=== PATIENT | male | born 1980 | race Caucasian/White ===

== ENCOUNTER 2018-10-02 09:57 | Inpatient (IN) ==
[2018-10-02] MEDS ORDERED: Gadobutrol PF 15 MMOL/15 ML Vial (for RAD) IV.SIG ONE (09:58)
--- NOTE | 2018-10-02 11:09 | ED ---
HPI General Chief complaint: Back Pain/Injury Stated complaint: Back pain / transfer from [facility] Time Seen by Provider: 10/02/18 10:03 Source: patient Mode of arrival: EMS History of Present Illness HPI narrative: This is a 38-year-old patient that was experiencing bilateral lower leg paresthesias, weakness, urinary retention and apparently constipation was seen and discharged on October 01. When the patient returns today patient was reevaluated and this time was been evaluated for a variety of conditions including [employer] tumor herniated disc productive radiculopathy cauda equina epidural abscess spinal abscess despite the fact that the patient does not have any major risk factors for these. For [facility] then transfer patient to [facility] due to their MRI being to unable to accommodate his weight. Related Data Home Medications Medication Instructions Recorded Confirmed Dilantin 300 mg PO TID 06/04/18 10/02/18 Allergies Allergy/AdvReac Type Severity Reaction Status Date / Time ibuprofen Allergy Anaphylaxis Verified 10/02/18 10:22 Iodine and Iodide Containing Allergy Anaphylaxis Verified 10/02/18 10:22 Produc ketorolac Allergy Anaphylaxis Verified 10/02/18 10:22 naproxen Allergy Anaphylaxis Verified 10/02/18 10:22 Penicillins Allergy Anaphylaxis Verified 10/02/18 10:22 Sulfa (Sulfonamide Allergy Anaphylaxis Verified 10/02/18 10:22 Antibiotics) [facility] Social History Social History Substance History: No History of Abuse Second Hand Smoke Exposure: No Smoking Status: Never smoker Tobacco Type: Cigarettes How Often Do You Have a Drink Containing Alcohol: Never Recent Travel in [facility] within the Last 8 Weeks: No Recent Out of Country Travel within the Last 8 Weeks: No Immunization History Tetanus Immunization: >5 Years Tetanus Immunization Year if Known: 2017 Exam Narrative Exam Narrative: GENERAL: Well-nourished, well-developed patient in no apparent distress. SKIN: Warm and dry. HEAD: Atraumatic. Normocephalic. EYES: Pupils equal and round. No scleral icterus. No injection or drainage. ENT: No nasal bleeding or discharge. Mucous membranes pink and moist. NECK: Trachea midline. No JVD. CARDIOVASCULAR: Regular rate and rhythm. no rubs or gallops RESPIRATORY: No accessory muscle use. Clear to auscultation. Breath sounds equal bilaterally. GASTROINTESTINAL: Abdomen soft, non-tender, nondistended. No rebound or guarding MUSCULOSKELETAL: Extremities without clubbing, cyanosis, or edema. No obvious deformities. NEUROLOGICAL: Awake and alert. No obvious cranial nerve deficits. PATIENT APPEARS TO HAVE DECREASED MOTOR ACTIVITY FROM T10 LEVEL AND BELOW (SUSPICIOUS FOR CAUDA EQUINA) WEAKER LEFT LEG, DECREASED SENSORY IN SADDLE DISTRIBUTION... Normal speech. PSYCHIATRIC: Appropriate mood and affect; insight and judgment normal. Course Initial Documented Vital Signs Temperature 98.9 F 10/02/18 10:11 Pulse Rate 87 10/02/18 10:11 Respiratory Rate 22 10/02/18 10:11 Blood Pressure 136/72 10/02/18 10:11 Pulse Oximetry 96 10/02/18 10:11 Last Documented Vital Signs Temperature 98.9 F 10/02/18 10:11 Pulse Rate 105 H 10/02/18 16:06 Respiratory Rate 12 10/02/18 16:06 Blood Pressure 121/73 10/02/18 16:06 Pulse Oximetry 99 10/02/18 16:06 Critical Care Time Critical Care Time: Yes Total Critical Care Time: 45 Attestation: Aggregate critical care time was 45 minutes. Time to perform other separately billable procedures was not included in the critical care time. My time did not include minutes spent treating any other patients simultaneously or on activities that did not directly contribute to the patient's treatment. The services I provided to this patient were to treat and/or prevent clinically significant deterioration I provided critical care services requiring my management, as noted below: Chart data review, documentation time, medication orders and management, vital sign assessments/reviewing monitor data, ordering and reviewing lab tests, ordering and interpreting/reviewing x-rays and diagnostic studies, care of the patient and discussion of the patient with the admitting physicians. Medical Decision Making MDM Narrative Medical decision making narrative: Patient's complete metabolic profile potassium 3.5, chloride 101, CO2 23, glucose 132, BUN 16, creatinine 0.79, calcium 9.2, albumin 4.0, total protein 8.8, alk phos 174, AST 46, ALT 50, and bili total 0.3 Urinalysis showed 1+ protein positive nitrite no bacteria moderate mucus these were all the abnormal findings of the urinalysis. UA WBC is 9, RBC 38. WBC 11.1, hemoglobin 12.1, hematocrit 37.7, neutrophils 75%, lymphocytes 13%, platelet 241,000. According to review with the patient was given Rocephin and vancomycin because of 1 blood culture bottle being positive for gram-positive cocci, in lieu of the patient's possible possible neurological symptoms 3 separate times he attempted to take the patient over to MRI, but each time the patient refused to get his MRI performed. The patient received fentanyl receive Versed doses and still the patient refused. On the last attempt he went with fentanyl and Versed drip, the patient still refused stating that it was too painful and he could not lay flat. Patient was advised that we did not want to miss a catastrophic cord compression injury and that he would require intubation if necessary as the most aggressive form. Patient then stated that he would agree to intubation and he signed his consent prior to being intubated. Please see forms that were signed by patient he was provided all risks and benefits. Dr. Manuel neurosurgeon came to the bedside to see the patient and advised as well as obtain consents for possible surgeries needed. At 1655 Dr. Manuel called me to make me aware that on his wet read he sees what appears to be epidural hematomas versus abscess either way the patient will need thoracic laminectomies to release pressure. CT abdomen and pelvis without IV contrast was read by radiologist GARCIA: Impression left renal calcification similar to the prior exam and may reflect nephrolithiasis versus vascular calcification. No obstructive uropathy. No evidence for bowel obstruction this was a October 01 CAT scan which was compared to in September 27 CAT scan abdomen without pelvis Right lower extremity venous duplex ultrasound performed negative for DVT according to radiologist Dr. Cedillo Chest x-ray read by Dr. Birch the third impression no evidence of acute cardiopulmonary process Right knee x-ray read by Dr. Paris the third impression read as small joint effusion suggested appearing similar to the prior persistent but improved soft tissue swelling noted about the knee anteriorly and laterally. Well-positioned uncemented total knee arthroplasty with interval lucency about the medial and lateral aspect of the femoral component consistent with osteoporosis Medical Screen Exam Complete: Yes Emergency Medical Condition: Yes Medical Records Medical records reviewed: Yes I reviewed the patient's medical records. Per evaluation the patient was evaluated in the emergency department, primary care Dr. chino . Patient had a Marie placed for urinary retention previously on October 01 and apparently the patient return for lower back pain for 2 days and now bilateral leg pain and numbness His baseline status is ambulatory (patient weighs 300 pounds) who apparently had a space right total knee surgery on August 30, 2018. The pain is midline over thoracolumbar spine. Patient states allergy to Ultracet fentanyl NSAIDs tramadol contrast dye and penicillin as well as Toradol. Imaging Data Radiologist's impression: Lumbar Spine MRI 10/02/18 10:28 CONCLUSION: 1. No fracture, subluxation, abscess or mass of the lumbar spine. 2. Mild degenerative disc disease with a small right paracentral disc protrusion at L1/L2. No associated significant foraminal or spinal stenosis. 3. Mild bilateral facet osteoarthritis throughout. Thoracic Spine MRI 10/02/18 10:28 CONCLUSION: 1. Complex collection in the posterior epidural space extending from T6 to T11 with its epicenter at the T9 level. There is epidural enhancement with small nonenhancing components. The signal changes with lack of fat suppression are indicative of subacute hemorrhage. The nonenhancing components located at the T9 level are suspicious for small abscess formation. 2. Right-sided bone marrow edema with abnormal enhancement involving the T9 and T10 vertebral bodies suspicious for vertebral body involvement and osteomyelitis. 3. Moderates compromise of the spinal canal with compression of the spinal cord. 4. Multiloculated fluid collections with surrounding enhancement are identified in the right paraspinal region at the T9 level characteristic of small paraspinal hematoma and/or abscess. 5. Extensive lower lobe consolidating lung disease. 6. Report conveyed to emergency physician. Discharge Plan Discharge Disposition Patient Disposition: 30 Still Patient Discharge Condition Condition: Fair Discharge Details Diagnosis: Epidural abscess Physicians Team ED Provider: Duncan Long Primary Care Provider: UNKNOWN, Attending Provider: Elliot Gonzalez Other Providers: Cipriano Manuel Status ED Status: Admitted Patient
[2018-10-02] MEDS ORDERED: fentaNYL Citrate Inj 100 MCG/2 ML Ampul IV.PUSH ONE (12:29)
[2018-10-02] MEDS ORDERED: Midazolam 50 MG/50 ML Inj 50 MG/50 ML BAG IV.CONT PRN (12:29)
--- NOTE | 2018-10-02 14:27 | P.CONNS ---
History of Present Illness Service: Neurosurgery Consult date: 10/02/18 Reason for Consult: Cauda equina syndrome Primary Care Provider: UNKNOWN Chief Complaint: Back pain, leg plegia History of Present Illness: 38yo M who has had progressive back and leg pain x 5 days, now with ~24hrs of paraplegia and ~3d of urinary retention. This began as back and leg pain 5d ago , progressing rapidly. He became unable to urinate 3d ago and was seen at the ER. A huizar was placed and he was released home. He continued to worsen, and since last night, he has been unable to move his legs. He says he can feel pressure, but that he is also numb in his legs from roughly the navel down. He has not had fecal incontinence. He has never had a similar episode. He had a knee replacement roughly 1 month ago, but denies fevers, chills, or other infection symptoms. He denies any history of illicit drug use. He has epilepsy and diabetes, and is on Dilantin. Review of Systems 10-system review conducted and otherwise negative. [facility] - History History Provided By: Patient - Medical History Medical History: Medical History (Last Reviewed 10/02/18 @ 10:17 by Elidia Whitfield) Diabetes Epilepsy - Surgical History Surgical History: Surgical History (Last Reviewed 10/02/18 @ 10:17 by Elidia Whitfield) Hx of abdominal surgery Hx of right knee surgery - Tobacco History Second Hand Smoke Exposure: No Smoking Status: Never smoker Tobacco Type: Cigarettes - Alcohol History How Often Do You Have a Drink Containing Alcohol: Never - Substance Use History Substance History: No History of Abuse - Travel History Recent Travel in the [place] Within the Last 8 Weeks: No Recent Travel Out of the Country Within the Last 8 Weeks: No - Immunization History Tetanus Immunization: >5 Years Tetanus Immunization Year if Known: 2016 Medications and Allergies Active Medications: Active Medications Midazolam HCl (Versed Inj) 50 mg in 50 mls @ 2 mls/hr IV.CONT TITRATE PRN; Protocol PRN Reason: Per Protocol Allergies Allergy/AdvReac Type Severity Reaction Status Date / Time ibuprofen Allergy Anaphylaxis Verified 10/02/18 10:22 Iodine and Iodide Containing Allergy Anaphylaxis Verified 10/02/18 10:22 Produc ketorolac Allergy Anaphylaxis Verified 10/02/18 10:22 naproxen Allergy Anaphylaxis Verified 11/04/18 10:22 Penicillins Allergy Anaphylaxis Verified 10/02/18 10:22 Sulfa (Sulfonamide Allergy Anaphylaxis Verified 10/02/18 10:22 Antibiotics) Home Medications Medication Instructions Recorded Confirmed Type Dilantin 300 mg PO TID 06/04/18 10/02/18 History Exam Vital signs: Vital Signs 10/02/18 10:11 10/02/18 12:07 10/02/18 14:08 Temperature 98.9 F Pulse Rate 87 96 H 92 H Respiratory Rate 18 Blood Pressure 136/72 140/82 138/69 Pulse Oximetry 96 96 95 Intake & Output 10/01/18 10/02/18 10/02/18 19:59 06:59 18:59 Output Total 1000 / 1000 Balance -1000 / -1000 Weight 136.078 kg Output: Urine Amount (Catheter) 1000 / 1000 Indwelling Urethral Catheter 1000 / 1000 - Routine Neurological Exam Alert and conversant. Answers questions appropriately. Keeps jaw tense from back pain throughout interview. Sensation to light touch decreased from navel down to toes. Has no voluntary motor movement in any muscle group of the legs bilaterally. Huizar catheter in place. Normal strength bilateral upper extremities. Assessment and Plan - Plan 38 M with symptoms concerning for lower spinal cord or cauda equina compression. He has a sensory level around T10 and no motor function from L1 down. Differential could include disc herniation, osteomyelitis/discitis or epidural abscess, degenerative stenosis, etc. Other mimics could include spinal cord infarct or neuropathy given his diabetes, but back pain and progressive sxs over several days make that less likely. Recommend STAT MRI T&L spines with and without contrast to assess for compressive pathology. If seen, would merit emergent decompressive surgery. Discussed this with patient at bedside and he is in agreement. Gave ER team my # and they will let me know as soon as MRI is complete.
[2018-10-02] MEDS ORDERED: Succinylcholine Inj 200 MG/10 ML Vial IV.PUSH ONE (14:51)
[2018-10-02] MEDS ORDERED: Etomidate Inj 20 MG/10 ML Ampul IV.PUSH ONE (14:51)
[2018-10-02] MEDS ORDERED: Propofol 1000 mg/100 ml Inj 1,000 MG/100 ML BOTTLE ONE (15:09)
[2018-10-02] MEDS: Propofol 1000 mg/100 ml Inj 1,000 MG/100 ML BOTTLE IV.CONT PRN ×2 (15:24→21:31)
[2018-10-02] MEDS ORDERED: Gelatin Size 100 Topical Foam ONE ×2 (16:53→17:58)
[2018-10-02] MEDS ORDERED: Thrombin Topical Soln 5,000 UNIT Vial TOPICAL ONE (16:53)
--- NOTE | 2018-10-02 17:19 | MR ---
EXAM DATE: 10/02/2018 4:51 PM EST AGE/SEX: 38 years / Male INDICATIONS: . Weakness/paresthesia/urinary retention, Mass CLINICAL DATA: This is the patient's initial encounter. Patient reports that signs and symptoms have been present for 3 days and indicates a pain score of 10/10. MEDICAL/SURGICAL HISTORY: Carcinoma, testicular. . Orchiectomy, Right knee replacement COMPARISON: No prior exams available for comparison. TECHNIQUE: Multiplanar, multisequence MRI examination of the lumbar spine was performed without and with 13 ml Gadavist (gadobutrol) contrast as a single exam dose. FINDINGS: Lumbar spine alignment is normal. Lumbar vertebral bodies have normal height. Subcentimeter hemangiom a seen of L5. No concerning focal bone lesion. Normal conus terminus at the level of L1. The L1/L2 disc is slightly desiccated and has slight loss of height. There is a small right paracentr al disc protrusion. No associated significant foraminal or spinal stenosis. Other lumbar intervertebral discs are normal. Mild facet osteoarthritis seen at each level. There is no abnormal enhancement of the lumbar spine. CONCLUSION: 1. No fracture, subluxation, abscess or mass of the lumbar spine. 2. Mild degenerative disc disease with a small right paracentral disc protrusion at L1/L2. No associ ated significant foraminal or spinal stenosis. 3. Mild bilateral facet osteoarthritis throughout. Electronically signed by: Hieu Chaves MD 10/02/2018 5:18 PM EST
--- NOTE | 2018-10-02 17:26 | MR ---
EXAM DATE: 10/02/2018 4:45 PM EST AGE/SEX: 38 years / Male INDICATIONS: . weakness/paresthesia/urinary retention, Mass, CLINICAL DATA: This is the patient's initial encounter. Patient reports that signs and symptoms have been present for 3 days and indicates a pain score of 10/10. MEDICAL/SURGICAL HISTORY: Carcinoma, testicular. . Orchiectomy, Right knee replacement COMPARISON: No prior exams available for comparison. TECHNIQUE: Multiplanar, multisequence MRI of the thoracic spine was performed without and with 13 ml Gadavist (gadobutrol) contrast as a single exam dose. FINDINGS: T1 and T2 hyperintense complex fluid collection is identified along the posterior epidural space exte nding from the T6-T11 thoracic levels. There is no significant suppression of the fluid on fat-suppre ssed sequences. The collection measures approximately 8.3 mm in thickness and causes significant effa cement of the posterior aspect of the spinal cord. The collection also extends along the right latera l and anterolateral epidural margin at the T9 level. Following administration of contrast there is ep idural enhancement outlining small nonenhancing fluid collections within the epidural process which a re located at the T9 level. At the same level there are small loculated fluid collections in the righ t paraspinal region located between the T9 and T10 levels. Bone marrow edema and abnormal enhancement are identified along the right side of the T9 and T10 vert ebral bodies. There is significant arthropathy of the T9-10 facet joint as well. There is no intrinsic edema or enhancement within the spinal cord. A small right paracentral disc protrusion is identified at T11-12. There is no significant mass effec t. Extensive consolidating infiltrate is identified in both lower lobes. CONCLUSION: 1. Complex collection in the posterior epidural space extending from T6 to T11 with its epicenter at the T9 level. There is epidural enhancement with small nonenhancing components. The signal changes w ith lack of fat suppression are indicative of subacute hemorrhage. The nonenhancing components locate d at the T9 level are suspicious for small abscess formation. 2. Right-sided bone marrow edema with abnormal enhancement involving the T9 and T10 vertebral bodies suspicious for vertebral body involvement and osteomyelitis. 3. Moderates compromise of the spinal canal with compression of the spinal cord. 4. Multiloculated fluid collections with surrounding enhancement are identified in the right paraspi nal region at the T9 level characteristic of small paraspinal hematoma and/or abscess. 5. Extensive lower lobe consolidating lung disease. 6. Report conveyed to emergency physician. Electronically signed by: Santosh Corado MD 10/02/2018 5:25 PM EST
[2018-10-02] MEDS ORDERED: Bupivacaine/Epinephrine Inj 0.25% 50 ML Vial ONE (17:38)
[2018-10-02] MEDS ORDERED: Acetaminophen 325 MG Tablet PO PRN (18:24)
[2018-10-02] MEDS ORDERED: Bisacodyl 10 MG Supp RECTAL PRN (18:24)
[2018-10-02] MEDS ORDERED: HYDROmorphone PF Inj 2 MG/ML Vial ONE (18:55)
[2018-10-02] MEDS ORDERED: Ketamine Inj 50 MG/5 ML Syringe IV.PUSH ONE (18:56)
[2018-10-02] MEDS ORDERED: Chlorhexidine 0.12% Oral Kit 15 ML UDC OROPHARYNG SCH (20:00)
[2018-10-02] MEDS ORDERED: fentaNYL Citrate Inj 100 MCG/2 ML Ampul ONE (21:19)
--- NOTE | 2018-10-02 21:21 | P.OP ---
- Preoperative Diagnosis (1) Epidural abscess - Postoperative Diagnosis (1) Epidural abscess Date of procedure: 10/02/18 Procedure: T5-T11 laminectomies for decompression of spinal cord and evacuation of abscess Anesthesia: GETA Surgeon: Cipriano Manuel MD Estimated blood loss (mL): 400 Pathology: other (Epidural tissue for pathology and microbiology, along with culture swabs x 2) Operation and Findings: Preoperative diagnosis: Thoracic epidural abscess versus hematoma Postoperative diagnosis: Thoracic epidural abscess Procedure performed: T5-T11 laminectomies for decompression of spinal cord and evacuation of epidural abscess Anesthesia: General endotracheal Estimated blood loss: 400 mL Drains: 10 flat channel drain in the epidural space Complications: None evident Indications for surgery: This is a 38-year-old man who presented with 5 days of progressive back and leg pain, which progressed to 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 He had a knee replacement 1 month ago, but denied having any fevers, chills, etc. However, apparently he had a positive blood culture several days ago when he went to the ER for urinary retention, and did receive a dose of vancomycin at some point. He was transferred to [facility] for emergent MRI, as he would not fit in the MRI scanner at the outside facility. We tried for more than 4 hours to obtain an MRI scan, but he could not tolerate lying flat due to severe back pain, and ultimately he required intubation for the MRI. I had a high suspicion that we would find a compressive spinal cord lesion, and prior to his intubation, I had a discussion with him about that likelihood. I did not know exactly what the MRI would show, but the patient gave his verbal consent to urgently operate without extubating him if an emergent surgical lesion was identified. I sat in the MRI control room throughout the entire scan, and it did indeed identify a large epidural fluid collection in the lower thoracic region with severe spinal cord compression. I felt that emergent decompression was indicated for spinal cord decompression and to obtain a firm diagnosis. No family members were available at that time to provide informed consent, and he was taken to the operating room emergently based on his verbal assent and multi- physician agreement. Operative findings: Phlegmonous changes of the epidural fat from T5-T11, with liquid pus in the region of T9-T11. Good decompression of the spinal cord was achieved. There were no durotomies. Multiple specimens were sent for microbiology and one for pathology. Operation: Patient was identified in the preoperative holding area and brought intubated into OR #4. General endotracheal anesthesia was induced. Because of his recent knee replacement, we requested the orthopedic service come to the operating room to examine his knee to ensure that there was no evidence of a septic arthroplasty or need for joint aspiration. They inspected the knee carefully and felt that it was reassuring, and did not require aspiration. The patient was cautiously rotated into the prone position on a Romulo table. Great care was taken to pad all pressure points given his obese body habitus. The fluoroscopy C arm was brought over the patient; his habitus prevented lateral radiographs, but by counting ribs we identified the T8/9 disc space and used this as the center of our incision. The entire back was now cleaned, prepped, and draped in the usual sterile fashion. Preoperative antibiotics were held to facilitate intraoperative cultures. Local anesthetic was injected. The incision was now opened sharply with a 10 blade and carried deep using Bovie electrocautery. Using careful subperiosteal dissection, we exposed the posterior elements from T5-T11. We took care not to disrupt the interspinous ligaments at T4-5 or T11-12. Fluoroscopy shots were taken again to confirm levels. Beginning at T8 and T9, we performed decompressive laminectomies with the high-speed drill and rongeurs. We identified phlegmonous changes of the epidural fat, which was unusually firm and adherent to the dura, but no evidence of ronaldo abscess. The laminectomies were extended in both directions, one level at a time, to continue decompressing the spinal cord. When we decompressed the T9/10 and T10/11 areas, we found liquid pus around the dura and tracking laterally around the thecal sac in the epidural space. Multiple specimens were taken, both by swab and by sending tissue specimens. At this point, we gave the patient vancomycin, ceftriaxone, and Flagyl. He had a known penicillin allergy, but we agreed that ceftriaxone would be safe, and he did not have any untoward reaction. We continued decompressing spinal cord and ultimately performed complete laminectomies of T6-T10, with partial laminectomies of T5 and T11. At both rostral and caudal ends, we identified normal epidural fat and normal dura. A [place] could be easily passed into the epidural space above and below, confirming adequate decompression of the thecal sac. The majority of the phlegmon could be gently dissected off of the dura, and the decompression appeared excellent. No durotomies occurred. The epidural space was now thoroughly irrigated with saline. Hemostasis was achieved with combination of thrombin-soaked Gelfoam and bone wax. Hemostasis ultimately appeared excellent. A 10 flat channel DAVY drain was tunneled in through a separate inferolateral stab incision and cut to length. This was left in the epidural space and secured with a 2-0 nylon drain stitch. Attention was now turned to closure. The muscle and fascia were closed with interrupted 0 Vicryl sutures. The thick layer of subcutaneous fat was closed with 0 Vicryls as well. The dermis was closed with interrupted inverted 3-0 Vicryl pops. Miranda were used for skin closure. The drapes were taken down, and bacitracin ointment and Primapore dressings were placed. We had decided beforehand to keep the patient intubated for transport to the ICU, so he was carefully rotated back into the supine position on an ICU bed and transported out of the operating room. All counts were correct at the end of the case, and no complications were evident. I made multiple attempts to contact his family by phone following surgery, to update them on his status, but was unsuccessful in reaching them. After finalizing this dictation I will go to the ICU and attempt to find him in person. We will plan to continue broad-spectrum antibiotics until his cultures come back. He will need ID consultation, and likely PICC line. He will also need PT/OT and likely inpatient rehab for his spinal cord injury. Attending Surgeon attestation: I performed the entire procedure.
[2018-10-02] MEDS: Sod Chloride 0.9% Inj 1,000 ML IV.CONT SCH (21:31)
[2018-10-02] MEDS: fentaNYL 10 mcg/mL Premix Drip 2,500 MCG/250 ML BAG IV.SIG PRN (21:31)
[2018-10-02] MEDS: Famotidine PF Inj 20 MG/2 ML Vial IV.PUSH SCH (21:45)
--- NOTE | 2018-10-02 21:54 | P.CONCC ---
History of Present Illness Service: Critical Care Medicine Consult date: 10/02/18 Requesting Physician: Cipriano Manuel Reason for Consult: critical care management of patient postop epidural abscess Primary Care Provider: UNKNOWN Chief Complaint: Back pain, leg plegia History of Present Illness: Unable to obtain history from patient as he is intubated. History obtained from discussion with Dr. Manuel and review of EMR. 38-year-old male with PMH of seizure disorder, diabetes, obesity and total knee replacement 08/30/18. He presented with reported 5 day history of back and leg pain. He had urinary retention about 3 days ago and presented to ED at [facility] and Marie catheter was placed and he was discharged. The evening of 10/01 he developed paraplegia and presented again to [facility]. MRI could not be performed there due to patients weight/ body habitus. He was transferred to [facility] for MRI. He was not able to cooperate with MRI after multiple attempts and ultimately required intubation for MRI. MRI revealed T6-T11 epidural abscess with compression of the spinal cord. He underwent T5 to T11 laminectomy and epidural abscess evacuation 10/[address] Manuel. Intraoperative cultures were obtained. He had received rocephin and Vancomycin 10/02 at outside hospital at 8:30 am. He has been continued on Rocephin, vancomycin and Flagyl per neurosurgery. Orthopaedics evaluated his knee in OR and said it appeared to be normal post-op knee, no need to do arthrocentesis. Dr. Manuel states preoperatively he had flaccid paraplegia and sensory level for T10, could feel some pressure sensation. He denied fever, chills, history of IV drug use. Plan for him to remain intubated for postop MRI in the morning and extubate following. There was concern regarding traumatic intubation due to blood suctioned from ETT postintubation, however he currently has a cuff leak. Reportedly prelim report on blood culture at outside hospital was [facility], requesting fax these results. Reviewed EMR but unable to confirm PMH/PSH/FH/social history with patient due to intubation Review of Systems unobtainable due to endotracheal tube PMFSH - History History Provided By: Medical Record - Medical / Surgical Hx Neg / Unobtainable Medical Problems Denied: Unable to Obtain Surgical History: Unable to Obtain - Medical History Medical History: Medical History (Last Reviewed 10/02/18 @ 10:17 by Elidia Whitfield) Diabetes Epilepsy - Surgical History Surgical History: Surgical History (Last Reviewed 10/02/18 @ 10:17 by Elidia Whitfield) Hx of abdominal surgery Hx of right knee surgery - Social History I have reviewed the patient's Social History: Yes - Tobacco History Second Hand Smoke Exposure: No Smoking Status: Never smoker Tobacco Type: Cigarettes - Alcohol History How Often Do You Have a Drink Containing Alcohol: Never - Substance Use History Substance History: No History of Abuse - Travel History Recent Travel in the [place] Within the Last 8 Weeks: No Recent Travel Out of the Country Within the Last 8 Weeks: No - Immunization History Tetanus Immunization: >5 Years Tetanus Immunization Year if Known: 2016 Medications and Allergies Active Medications: Active Medications Acetaminophen (Tylenol) 650 mg PO Q6H PRN PRN Reason: PAIN 1-10 AND/OR FEVER >101F Al Hydroxide/Mg Hydroxide (Milk Of Magnesia Liq) 30 ml PO Q12H PRN PRN Reason: Mild Constipation Albuterol (Duoneb Neb (Prn)) 1 ampul NEB Q2HR NEB PRN PRN Reason: WHEEZING Bisacodyl (Dulcolax Supp) 10 mg RECTAL DAILY PRN PRN Reason: SEVERE CONSITIPATION Chlorhexidine Gluconate (Peridex 0.12% Oral Kit) 15 ml OROPHARYNG BID@0800, 2000 [facility] Last Admin: 10/02/18 21:46 Dose: 15 ml Chlorhexidine Gluconate (Chlorhexidine 2% Cloth) 3 pack TOPICAL DAILY@0400 [facility] Stop: 10/08/18 03:59 Chlorhexidine Gluconate (Chlorhexidine 2% Cloth) 3 pack TOPICAL DAILY@0400 PRN PRN Reason: Extra cloth needed Stop: 10/08/18 03:59 Famotidine (Pepcid Pf Inj) 20 mg IV.PUSH Q12HR [facility] Last Admin: 10/02/18 21:45 Dose: 20 mg Midazolam HCl (Versed Inj) 50 mg in 50 mls @ 2 mls/hr IV.CONT TITRATE PRN; Protocol PRN Reason: Per Protocol Last Admin: 10/02/18 14:20 Dose: 2 mg/hr, 2 mls/hr Propofol (Diprivan 1000 Mg/100 Ml Inj) 1,000 mg in 100 mls @ 4.082 mls/hr IV.CONT TITRATE PRN; Protocol PRN Reason: Per Protocol Last Admin: 10/02/18 21:31 Dose: 20 mcg/kg/min, 16.33 mls/hr Fentanyl (Fentanyl 10 Mcg/Ml Premix Drip) 2,500 mcg in 250 mls @ 5 mls/hr IV.SIG TITRATE PRN; Protocol PRN Reason: Per Protocol Last Admin: 10/02/18 21:31 Dose: 50 mcg/hr, 5 mls/hr Sodium Chloride (Ns Inj) 1,000 mls @ 100 mls/hr IV.CONT .Q10H ONI Last Admin: 10/02/18 21:31 Dose: 100 mls/hr Lactulose (Lactulose Liq) 30 ml PO DAILY PRN PRN Reason: SEVERE CONSITIPATION Miscellaneous Medication () 1 each OROPHARYNG 0000,0400,1200,1600 ONI Morphine Sulfate (Morphine Inj) 2 mg IV.PUSH Q2H PRN PRN Reason: PAIN SCALE 6 TO 10 Ondansetron HCl (Zofran Inj) 4 mg IV.PUSH Q6H PRN PRN Reason: NAUSEA OR VOMITING Senna/Docusate Sodium (Jinny-Colace) 1 tab PO BID ONI Sennosides (Senokot) 17.2 mg PO Q12H PRN PRN Reason: Moderate Constipation Sodium Chloride (Ns Flush) 2 ml IV.FLUSH BID ONI Sodium Chloride (Ns Flush) 2 ml IV.FLUSH PRN PRN PRN Reason: FLUSH AFTER USING IV ACCESS Allergies Allergy/AdvReac Type Severity Reaction Status Date / Time ibuprofen Allergy Anaphylaxis Verified 10/02/18 10:22 Iodine and Iodide Containing Allergy Anaphylaxis Verified 10/02/18 10:22 Produc ketorolac Allergy Anaphylaxis Verified 10/02/18 10:22 naproxen Allergy Anaphylaxis Verified 10/02/18 10:22 Penicillins Allergy Anaphylaxis Verified 10/02/18 10:22 Sulfa (Sulfonamide Allergy Anaphylaxis Verified 10/02/18 10:22 Antibiotics) Home Medications Medication Instructions Recorded Confirmed Type Dilantin 300 mg PO TID 06/04/18 10/02/18 History Physical Exam Vital signs: Vital Signs 10/02/18 10:11 10/02/18 12:07 10/02/18 14:08 Temperature 98.9 F Pulse Rate 87 96 H 92 H Respiratory Rate 22 22 18 Blood Pressure 136/72 140/82 138/69 Pulse Oximetry 96 96 95 10/02/18 15:19 10/02/18 15:27 10/02/18 15:30 Temperature Pulse Rate 108 H Respiratory Rate 18 23 Blood Pressure 138/78 Pulse Oximetry 94 L 100 100 10/02/18 16:06 10/02/18 18:13 10/02/18 21:28 Temperature Pulse Rate 105 H Respiratory Rate 12 12 17 Blood Pressure 121/73 Pulse Oximetry 99 99 Intake & Output 10/02/18 10/02/18 10/03/18 06:59 18:59 06:59 Intake Total 300 / 300 Output Total 1900 / 1900 Balance -1900 / -1900 300 / 300 Weight 136.078 kg Intake: IV 300 / 300 Diprivan 1000 mg/100 ml Inj 1, 100 / 100 000 mg In 100 ml @ 5 MCG/KG/MIN 4.082 mls/hr IV.CONT TITRATE PRN Rx#:[id number] Rocephin Inj 1,000 MG In NS Inj 100 / 100 100 ML @ 200 mls/hr IV.SIG ONCE ONE Rx#:[id number] Flagyl 500 MG Inj 100 ML @ 0 100 / 100 mls/hr IV.SIG .STK-MED ONE Rx#: [id number] Output: Urine Amount (Catheter) 1899 Indwelling Urethral Catheter 1899 Narrative: GENERAL: Well-nourished, well-developed obese patient who is orotracheally intubated. He has been on sedation but will awaken and follow commands with upper extremities when propofol is held. SKIN: Warm and dry. HEAD: Atraumatic. Normocephalic. EYES: Pupils equal and round, 2 mm and reactive bilaterally. No scleral icterus. No injection or drainage. ENT: No nasal bleeding or discharge. Mucous membranes pink and moist. NECK: Trachea midline. No JVD. CARDIOVASCULAR: Regular rate and rhythm. No murmurs rubs or gallops. RESPIRATORY: Orotracheally intubated. No accessory muscle use. Clear to auscultation. Breath sounds equal bilaterally. GASTROINTESTINAL: Abdomen soft, non-tender, nondistended. Bowel sounds present. MUSCULOSKELETAL: Extremities without clubbing, cyanosis. Healing incision overlying right knee, no erythema or drainage. NEUROLOGICAL: Opens eyes off sedation, makes eye contact. Squeezes hands bilaterally with firm brown sourer to command. No motor activity bilateral lower extremities. No response to Babinski. - Urinary Catheter Management Indwelling Urethral Catheter Cath placed during this visit: no Assessment and Plan - Problem List (1) Obesity Code(s): E66.9 - Obesity, unspecified Status: Acute (2) Respiratory failure Code(s): J96.90 - Respiratory failure, unspecified, unspecified whether with hypoxia or hypercapnia Status: Acute (3) Flaccid paralysis Code(s): G83.89 - Other specified paralytic syndromes Status: Acute (4) Seizure disorder Code(s): G40.909 - Epilepsy, unspecified, not intractable, without status epilepticus Status: Chronic (5) Diabetes mellitus Code(s): E11.9 - Type 2 diabetes mellitus without complications Status: Chronic - Assessment and Plan Plan: NEURO: Epidural abscess s/p T5-T11 laminectomy and abscess evacuation 10/[address] Manuel Flaccid paraplegia Seizure disorder Propofol for sedation. Fentanyl for analgosedation. Target RASS -2. F/u MRI in morning before extubation. DAVY drain in place, monitoring output, management per neurosurgery. Dr. Kelly to follow from NSG standpoint. Continue Dilantin 300 mg per tube 3 times daily. RESP: Acute respiratory failure +cuff leak ACV. Ventilator Bundle. SBT and plan to extubate as tolerated following MRI. CV: 0.9 NaCL @ 100ml/hr. Avoid hypotension. GI: Obesity OGT to LIWS Bowel regimen FEN/RENAL: Urinary retention Marie in place. Monitor intake and output. Monitor electrolytes and replace as indicated per ICU electrolyte replacement protocol ID: Epidural abscess Obtain blood culture results from outside hospital. Since blood cultures now. Dr. Manuel states intraoperative port cultures were obtained. He requests continuation of Rocephin, vancomycin, Flagyl. ID consult. Pt has reported history of anaphylaxis to penicillin. Has had 2 doses of Rocephin at this point with no untoward effect. Reportedly no history of IVDU. HEME: Obtain postop CBC, coags. ENDO: Diabetes mellitus Monitor bedside glucose every 6 hours and administer low-dose insulin sliding scale as indicated. PROPH: SCD for DVT prophylaxis. Avoid pharmacologic DVT prophylaxis due to immediate postop epidural evacuation. Famotidine for stress ulcer prophylaxis. ACCESS: L subclavian CVL placed in OR 10/02. Right radial art line in place 10/02 #1 Full code Level 3 consult
--- NOTE | 2018-10-02 22:07 | XR ---
EXAM DATE: 10/02/2018 9:55 PM EST AGE/SEX: 38 years / Male INDICATIONS: Left subclavian line placement. CLINICAL DATA: This is the patient's subsequent encounter. Patient reports that signs and symptoms h ave been present for 1 day and indicates a pain score of Nonresponsive. MEDICAL/SURGICAL HISTORY: . Hernia. . Hernia mesh. None. COMPARISON: [facility], CHEST PA & LAT, 10/19/2017. . FINDINGS: Patient is status post thoracic spine surgery. Very mild bibasilar atelectasis noted. No pleural effu ratna. No pneumothorax. Heart size stable, within normal limits. Endotracheal tube tip is approximately 3.8 cm above the dione. There is a left subclavian central ve nous catheter with tip at the junction of the left brachiocephalic vein with the superior vena cava. CONCLUSION: 1. Interim thoracic spine surgery. 2. Endotracheal tube and left subclavian central venous catheter as described. No pneumothorax. 3. Mild bibasilar atelectasis. Electronically signed by: Hieu Chaves MD 10/02/2018 10:06 PM EST
[2018-10-02] MEDS ORDERED: Vancomycin Consult Pharmacy OTHER PRN (22:44)
[2018-10-02] MEDS ORDERED: Dextrose 50% in Water 50 ML Vial IV.PUSH PRN (23:03)
[2018-10-02] MEDS ORDERED: Potassium Phosphate 500 MG Soluble Tablet PO PRN ×2 (23:05)
[2018-10-02] MEDS ORDERED: Potassium Chlor 40 mEq Premix 40 MEQ/100 ML PIGGYBACK IV.SIG PRN ×2 (23:05)
[2018-10-02] MEDS ORDERED: Sodium Phosphate Inj 30 MMOL in Sodium Chlor 0.9% Inj 250 ML IV.SIG PRN (23:05)
[2018-10-02] MEDS ORDERED: Potassium Phosphate Inj 30 MMOL in Sodium Chlor 0.9% Inj 250 ML IV.SIG PRN (23:05)
[2018-10-02] MEDS ORDERED: Magnesium Oxide 400 MG Tablet PO PRN (23:05)
[2018-10-02] MEDS ORDERED: Potassium Chloride 25 MEQ Effervescent Tablet PO PRN (23:05)
[2018-10-02] MEDS ORDERED: Potassium Chlor 20 mEq Premix 20 MEQ/100 ML PIGGYBACK IV.SIG PRN ×2 (23:05)
[2018-10-02] MEDS ORDERED: Magnesium Sulfate Inj 2 GM in Sodium Chlor 0.9% Inj 96 ML IV.SIG PRN (23:05)
[2018-10-02] MEDS ORDERED: Magnesium Sulfate Inj 4 GM in Sodium Chlor 0.9% Inj 92 ML IV.SIG PRN (23:05)
[2018-10-02] MEDS: Phenytoin Sodium 100 MG Capsule NG/OG SCH (23:23)
[2018-10-02] MEDS: Senna/Docusate Sodium 8.6/50 MG Tablet PO SCH (23:24)
[2018-10-02] MEDS: Insulin NovoLOG Aspart Correctional Sugar Inj SQ SCH (23:46)
[2018-10-02] MEDS: Oral Hygiene Kit OROPHARYNG SCH (23:47)
[2018-10-03] MEDS ORDERED: Oral Hygiene Kit OROPHARYNG SCH
[2018-10-03 00:15] LABS: Hematocrit 29.6 % (39.0-51.0); Mean Corpuscular HGB Conc 33.6 % (32.0-36.0); Mean Corpuscular Hemoglobin 30.3 pg (27.0-34.0); Mean Corpuscular Volume 90.2 fL (80.0-100.0); Platelet Count 206 th/mm3 (150-450); Red Blood Count 3.29 mil/mm3 (4.50-5.90); Red Cell Distribution Width 15.3 % (11.6-17.2); White Blood Count 12.4 th/mm3 (4.0-11.0)
[2018-10-03] MEDS: Propofol 1000 mg/100 ml Inj 1,000 MG/100 ML BOTTLE IV.CONT PRN ×4 (00:18→13:07)
[2018-10-03 00:30] LABS: Alanine Aminotransferase 35 U/L (12-78); Albumin 2.3 g/dL (3.4-5.0); Anion Gap 6 meq/L (5-15); Aspartate Aminotransferase 17 U/L (15-37); Blood Urea Nitrogen 11 mg/dL (7-18); Calcium 8.1 mg/dL (8.5-10.1); Carbon Dioxide 24.7 meq/L (21.0-32.0); Chloride 111 meq/L (98-107); Glomerular Filtration Rate Greater Than 89 mL/min (>89); Glucose,Random 162 mg/dL (74-106); Potassium 3.7 meq/L (3.5-5.1); Sodium 142 meq/L (136-145)
[2018-10-03 00:33] LABS: Alkaline Phosphatase 122 U/L (45-117); Total Protein 7.1 g/dL (6.4-8.2)
[2018-10-03 00:41] LABS: Activated Partial Thrombo Time 29.3 sec (23.4-31.7); INR 1.2 Ratio; Prothrombin Time 12.2 sec (9.8-11.6)
[2018-10-03 00:48] LABS: Amphetamine Screen,Urine Neg (Neg); Barbiturate Screen,Urine Neg (Neg); Cannabinoid Screen,Urine Neg (Neg); Cocaine Screen,Urine Neg (Neg)
[2018-10-03 01:00] LABS: Opiate Screen,Urine Pos (Neg)
[2018-10-03] MEDS ORDERED: Chlorhexidine Gluconate 2% 1 Pack (2 Cloths) TOPICAL PRN (04:00)
[2018-10-03] MEDS: Oral Hygiene Kit OROPHARYNG SCH ×3 (04:20→17:35)
[2018-10-03] MEDS ORDERED: Vancomycin Inj 2,000 MG in Sodium Chlor 0.9% Inj 500 ML IV.SIG SCH (05:00)
[2018-10-03] MEDS: Chlorhexidine Gluconate 2% 1 Pack (2 Cloths) TOPICAL SCH (05:53)
[2018-10-03] MEDS: Insulin NovoLOG Aspart Correctional Sugar Inj SQ SCH ×3 (06:29→19:16)
[2018-10-03] MEDS: Phenytoin Sodium 100 MG Capsule NG/OG SCH ×3 (06:29→22:30)
[2018-10-03 07:15] LABS: Hemoglobin 9.7 gm/dL (13.0-17.0); Lymph # (Auto) 0.8 th/mm3 (1.0-4.8); Lymph % (Auto) 7.2 % (9.0-44.0); Mean Corpuscular HGB Conc 32.2 % (32.0-36.0); Mean Corpuscular Hemoglobin 29.9 pg (27.0-34.0); Mean Corpuscular Volume 92.9 fL (80.0-100.0); Mean Platelet Volume 9.3 fL (7.0-11.0); Mono # (Auto) 0.6 th/mm3 (0.0-0.9); Neut # (Auto) 10.2 th/mm3 (1.8-7.7); Neut % (Auto) 87.8 % (16.0-70.0); Platelet Count 220 th/mm3 (150-450); Red Blood Count 3.23 mil/mm3 (4.50-5.90); Red Cell Distribution Width 14.9 % (11.6-17.2); White Blood Count 11.6 th/mm3 (4.0-11.0)
[2018-10-03 07:20] LABS: INR 1.2 Ratio; Prothrombin Time 12.3 sec (9.8-11.6)
[2018-10-03 07:41] LABS: Albumin 2.4 g/dL (3.4-5.0); Anion Gap 8 meq/L (5-15); Aspartate Aminotransferase 15 U/L (15-37); Blood Urea Nitrogen 12 mg/dL (7-18); Calcium 8.2 mg/dL (8.5-10.1); Carbon Dioxide 23.7 meq/L (21.0-32.0); Chloride 111 meq/L (98-107); Glomerular Filtration Rate Greater Than 89 mL/min (>89); Glucose,Random 145 mg/dL (74-106); Magnesium 1.9 mg/dL (1.5-2.5); Potassium 3.8 meq/L (3.5-5.1); Sodium 143 meq/L (136-145)
[2018-10-03 07:43] LABS: Alanine Aminotransferase 32 U/L (12-78); Phosphorus 2.2 mg/dL (2.5-4.9)
[2018-10-03 07:45] LABS: Alkaline Phosphatase 116 U/L (45-117); Phenytoin (Dilantin) 1.1 mcg/mL (10.0-20.0); Total Protein 7.2 g/dL (6.4-8.2)
[2018-10-03] MEDS: Senna/Docusate Sodium 8.6/50 MG Tablet PO SCH ×2 (08:35→21:05)
[2018-10-03] MEDS: Famotidine PF Inj 20 MG/2 ML Vial IV.PUSH SCH ×2 (08:35→21:05)
[2018-10-03] MEDS: Morphine Sulfate Inj 2 MG/ML Vial IV.PUSH PRN ×5 (08:35→21:06)
[2018-10-03] MEDS: Chlorhexidine 0.12% Oral Kit 15 ML UDC OROPHARYNG SCH ×2 (08:58→21:06)
[2018-10-03] MEDS: fentaNYL 10 mcg/mL Premix Drip 2,500 MCG/250 ML BAG IV.SIG PRN (10:27)
[2018-10-03] MEDS ORDERED: Gadobutrol PF 15 MMOL/15 ML Vial (for RAD) IV.SIG ONE (12:23)
--- NOTE | 2018-10-03 13:07 | P.PNCC ---
Subjective Subjective Remarks/Hospital Course: 38-year-old male with PMH of seizure disorder, diabetes, obesity and total knee replacement 08/30/18. He presented with reported 5 day history of back and leg pain. He had urinary retention about 3 days ago and presented to ED at [facility] and Marie catheter was placed and he was discharged. The evening of 10/01 he developed paraplegia and presented again to [facility]. MRI could not be performed there due to patients weight/ body habitus. He was transferred to [facility] for MRI. He was not able to cooperate with MRI after multiple attempts and ultimately required intubation for MRI. MRI revealed T6-T11 epidural abscess with compression of the spinal cord. He underwent T5 to T11 laminectomy and epidural abscess evacuation 10/[address] Manuel. Intraoperative cultures were obtained. He had received rocephin and Vancomycin 10/02 at outside hospital at 8:30 am. He has been continued on Rocephin, vancomycin and Flagyl per neurosurgery. Orthopaedics evaluated his knee in OR and said it appeared to be normal post-op knee, no need to do arthrocentesis. Dr. Manuel states preoperatively he had flaccid paraplegia and sensory level for T10, could feel some pressure sensation. He denied fever, chills, history of IV drug use. Plan for him to remain intubated for postop MRI in the morning and extubate following. There was concern regarding traumatic intubation due to blood suctioned from ETT postintubation, however he currently has a cuff leak. Reportedly prelim report on blood culture at outside hospital was [facility], requesting fax these results. 10/03: Patient remains intubated but wakes up easily follows commands tolerate CPAP. Pre op thoracic MRI showed complex collection in the posterior epidural space extending from T6 to T11 with its epicenter at the T9 level indicative of subacute hemorrhage. The nonenhancing components located at the T9 level are suspicious for small abscess formation. There is also suspicion of T9 and T10 vertebral bodies osteomyelitis. Moderate compromise of the spinal canal with compression of the spinal cord. Also small paraspinal hematoma and/or abscess. Post op MRI pending at this time Objective Vital Signs / I&O: Vital Signs 10/02/18 14:08 10/02/18 15:19 10/02/18 15:27 Temperature Pulse Rate 92 H 108 H Respiratory Rate 18 18 23 Blood Pressure 138/69 138/78 Pulse Oximetry 95 94 L 100 10/02/18 15:30 10/02/18 16:06 10/02/18 18:13 Temperature Pulse Rate 105 H Respiratory Rate 12 12 Blood Pressure 121/73 Pulse Oximetry 100 99 10/02/18 21:09 10/02/18 21:12 10/02/18 21:28 Temperature Pulse Rate 89 Respiratory Rate 17 Blood Pressure 111/55 L Pulse Oximetry 96 95 99 10/02/18 22:00 10/02/18 22:25 10/02/18 23:00 Temperature 98.8 F Pulse Rate 84 81 73 Respiratory Rate 20 15 14 Blood Pressure 120/63 113/59 L Pulse Oximetry 100 100 100 10/02/18 23:36 10/03/18 00:00 10/03/18 01:00 Temperature 99.2 F Pulse Rate 72 70 Respiratory Rate 18 18 16 Blood Pressure 116/59 L 114/55 L Pulse Oximetry 100 100 100 10/03/18 02:00 10/03/18 03:00 10/03/18 04:00 Temperature 99.5 F Pulse Rate 68 71 75 Respiratory Rate 16 14 16 Blood Pressure 112/59 L 117/64 122/67 Pulse Oximetry 100 100 100 10/03/18 04:23 10/03/18 05:00 10/03/18 06:00 Temperature Pulse Rate 69 74 Respiratory Rate 14 12 14 Blood Pressure 113/57 L Pulse Oximetry 100 100 100 10/03/18 08:00 10/03/18 09:10 10/03/18 12:49 Temperature 99.2 F Pulse Rate 70 Respiratory Rate 14 12 Blood Pressure Pulse Oximetry 100 97 100 10/03/18 12:50 Temperature Pulse Rate Respiratory Rate 13 Blood Pressure Pulse Oximetry 98 Intake & Output 10/02/18 10/03/18 10/03/18 18:59 06:59 18:59 Intake Total 1999 / 1999 350 / 350 Output Total 1900 / 1900 1500 / 1500 Balance -1900 / -1900 500 / 500 350 / 350 Weight 136.078 kg 143.2 kg Intake: IV 500 / 500 350 / 350 Diprivan 1000 mg/100 ml Inj 1, 300 / 300 100 / 100 000 mg In 100 ml @ 5 MCG/KG/MIN 4.082 mls/hr IV.CONT TITRATE PRN Rx#:[id number] Rocephin Inj 1,000 MG In NS Inj 100 / 100 100 ML @ 200 mls/hr IV.SIG ONCE ONE Rx#:[id number] fentaNYL 10 mcg/mL Premix Drip 250 / 250 2,500 mcg In 250 ml @ 50 MCG/HR 5 mls/hr IV.SIG TITRATE PRN Rx #:[id number] Flagyl 500 MG Inj 100 ML @ 0 100 / 100 mls/hr IV.SIG .STK-MED ONE Rx#: [id number] Anesthesia Amount 1500 / 1500 Output: Estimated Blood Loss 400 / 400 Urine Amount (Catheter) 1900 / 1900 900 / 900 Indwelling Urethral Catheter 1900 / 1900 900 / 900 Gastric Drainage 50 / 50 Oral Orogastric Tube 50 / 50 Wound Drainage 150 / 150 # 1 Posterior DAVY Drain 150 / 150 Other: # Bowel Movements 0 # Incontinent Bowel Movements 0 Weight On Admission 141.5 kg Result Diagrams: 10/03/18 05:51 10/03/18 05:51 Objective Remarks: GENERAL: Well-nourished, well-developed obese patient who is orotracheally intubated. He has been on sedation but will awaken and follow commands with upper extremities when propofol is held. SKIN: Warm and dry. HEAD: Atraumatic. Normocephalic. EYES: Pupils equal and round, 2 mm and reactive bilaterally. No scleral icterus. No injection or drainage. ENT: No nasal bleeding or discharge. Mucous membranes pink and moist. NECK: Trachea midline. No JVD. CARDIOVASCULAR: Regular rate and rhythm. No murmurs rubs or gallops. RESPIRATORY: Orotracheally intubated. No accessory muscle use. Clear to auscultation. Breath sounds equal bilaterally. GASTROINTESTINAL: Abdomen soft, non-tender, nondistended. Bowel sounds present. MUSCULOSKELETAL: Extremities without clubbing, cyanosis. Healing incision overlying right knee, no erythema or drainage. NEUROLOGICAL: Opens eyes off sedation, makes eye contact. Squeezes hands bilaterally with firm verification lead to command. No motor activity bilateral lower extremities. No response to Babinski. Assessment and Plan - Problem List (1) Obesity Code(s): E66.9 - Obesity, unspecified Status: Acute (2) Respiratory failure Code(s): J96.90 - Respiratory failure, unspecified, unspecified whether with hypoxia or hypercapnia Status: Acute (3) Flaccid paralysis Code(s): G83.89 - Other specified paralytic syndromes Status: Acute (4) Seizure disorder Code(s): G40.909 - Epilepsy, unspecified, not intractable, without status epilepticus Status: Chronic (5) Diabetes mellitus Code(s): E11.9 - Type 2 diabetes mellitus without complications Status: Chronic - Assessment and Plan Plan: NEURO: Epidural abscess s/p T5-T11 laminectomy and abscess evacuation 10/[address] Manuel Flaccid paraplegia Seizure disorder Propofol for sedation. Fentanyl for analgosedation. Target RASS -2. F/u MRI in morning before extubation. Results are pending at this time DAVY drain in place, monitoring output, management per neurosurgery. Dr. Kelly to follow from NSG standpoint. Continue Dilantin 300 mg per tube 3 times daily. RESP: Acute respiratory failure +cuff leak. ACV. Ventilator Bundle. SBT and plan to extubate as tolerated following MRI. CV: 0.9 NaCL @ 100ml/hr. Avoid hypotension. GI: Obesity OGT to LIWS Bowel regimen FEN/RENAL: Urinary retention Marie in place. Monitor intake and output. Monitor electrolytes and replace as indicated per ICU electrolyte replacement protocol ID: Epidural abscess Obtain blood culture results from outside hospital. Since blood cultures now. Dr. Manuel states intraoperative port cultures were obtained. He requests continuation of Rocephin, vancomycin, Flagyl. ID consult. Pt has reported history of anaphylaxis to penicillin. Has had 2 doses of Rocephin at this point with no untoward effect. Reportedly no history of IVDU. HEME: Obtain postop CBC, coags. ENDO: Diabetes mellitus Monitor bedside glucose every 6 hours and administer low-dose insulin sliding scale as indicated. PROPH: SCD for DVT prophylaxis. Avoid pharmacologic DVT prophylaxis due to immediate postop epidural evacuation. Famotidine for stress ulcer prophylaxis. ACCESS: L subclavian CVL placed in OR 10/02. Right radial art line in place 10/02 Full code Level 3
--- NOTE | 2018-10-03 13:28 | P.CONID ---
History of Present Illness Service: Infectious Disease Consult date: 10/03/18 Requesting Physician: Tawnya Rodriguez Reason for Consult: Evaluation and Mment of Thoracic epidural abscess Primary Care Provider: UNKNOWN Chief Complaint: Back pain, leg plegia History of Present Illness: Mr. Lawler is a 29-year-old male with past medical history significant for right knee TKR on 08/30/2018. He reportedly did ok and when asked he nodded no to any infection or discharge post surgery. His knee surgical scar did ok per his nodding. He is awake, responding to commands waiting for extubation. Patient presented at [facility] initially with a 5-day history of back and leg pain as well as urinary retention of 3 days duration. Patient was evaluated in the ED and a Marie catheter was placed and he was discharged. Of October 01, 2008 he developed paraplegia and presented again to [facility]. An MRI could not be performed reportedly read/body habitus. He was transferred to [facility] for an MRI. Due to difficulty obtaining an MRI, patient required intubation. The MRI revealed T6- T11 epidural abscess with compression of the spinal cord. He underwent T5 to T11 laminectomy and epidural abscess evacuation 10/[address] Manuel [facility] neurosurgery. Intraoperative cultures were obtained. Patient had received rocephin and Vancomycin IV 10/02 at outside hospital at 8:30 am. He has been continued on Rocephin, vancomycin and Flagyl per neurosurgery. Orthopaedics evaluated his knee in OR and said it appeared to be normal post-op knee, no need to do arthrocentesis. He denied fever, chills, history of IV drug use. Reportedly prelim report on blood culture at outside hospital was [facility],fax of results has been requested by [facility] per their notes. ID consulted for evaluation and Mment of Gram positive bacteremia, Epidural abscess in a patient post surgery for Rt TKR. Review of Systems unobtainable due to endotracheal tube PMFSH - History History Provided By: Medical Record - Medical / Surgical Hx Neg / Unobtainable Medical Problems Denied: Unable to Obtain - Medical History Medical History: Medical History (Last Reviewed 10/02/18 @ 10:17 by Elidia Whitfield) Diabetes Epilepsy - Surgical History Surgical History: Surgical History (Last Reviewed 10/02/18 @ 10:17 by Elidia Whitfield) Hx of abdominal surgery Hx of right knee surgery - Tobacco History Second Hand Smoke Exposure: No Tobacco Use In Past 30 Days: (unknown) Smoking Status: Never smoker Tobacco Type: Cigarettes - Alcohol History How Often Do You Have a Drink Containing Alcohol: Never - Substance Use History Substance History: No History of Abuse - Travel History Recent Travel in the [place] Within the Last 8 Weeks: No Recent Travel Out of the Country Within the Last 8 Weeks: No - Immunization History Tetanus Immunization: >5 Years Tetanus Immunization Year if Known: 2016 Medications and Allergies Active Medications: Active Medications Acetaminophen (Tylenol) 650 mg PO Q6H PRN PRN Reason: PAIN 1-10 AND/OR FEVER >101F Al Hydroxide/Mg Hydroxide (Milk Of Yadiel Liq) 30 ml PO Q12H PRN PRN Reason: Mild Constipation Albuterol (Duoneb Neb (Prn)) 1 ampul NEB Q2HR NEB PRN PRN Reason: WHEEZING Bisacodyl (Dulcolax Supp) 10 mg RECTAL DAILY PRN PRN Reason: SEVERE CONSITIPATION Chlorhexidine Gluconate (Chlorhexidine 2% Cloth) 3 pack TOPICAL DAILY@0400 [facility] Stop: 10/08/18 03:59 Last Admin: 10/03/18 05:53 Dose: 3 pack Chlorhexidine Gluconate (Chlorhexidine 2% Cloth) 3 pack TOPICAL DAILY@0400 PRN PRN Reason: Extra cloth needed Stop: 10/08/18 03:59 Chlorhexidine Gluconate (Peridex 0.12% Oral Kit) 15 ml OROPHARYNG BID@0800, 2000 [facility] Last Admin: 10/03/18 08:58 Dose: 15 ml Dextrose (D50w Vial) 50 ml IV.PUSH UNSCH PRN PRN Reason: PER HYPOGLYCEMIA PROTOCOL Famotidine (Pepcid Pf Inj) 20 mg IV.PUSH Q12HR [facility] Last Admin: 10/03/18 08:35 Dose: 20 mg Glucagon (Glucagon Inj) 1 mg OTHER PRN PRN PRN Reason: for Hypoglycemia Protocol Midazolam HCl (Versed Inj) 50 mg in 50 mls @ 2 mls/hr IV.CONT TITRATE PRN; Protocol PRN Reason: Per Protocol Last Admin: 10/02/18 14:20 Dose: 2 mg/hr, 2 mls/hr Propofol (Diprivan 1000 Mg/100 Ml Inj) 1,000 mg in 100 mls @ 4.082 mls/hr IV.CONT TITRATE PRN; Protocol PRN Reason: Per Protocol Last Admin: 10/03/18 13:07 Dose: 30 mcg/kg/min, 24.49 mls/hr Fentanyl (Fentanyl 10 Mcg/Ml Premix Drip) 2,500 mcg in 250 mls @ 5 mls/hr IV.SIG TITRATE PRN; Protocol PRN Reason: Per Protocol Last Admin: 10/03/18 10:27 Dose: 150 mcg/hr, 15 mls/hr Sodium Chloride (Ns Inj) 1,000 mls @ 100 mls/hr IV.CONT .Q10H [facility] Last Admin: 10/02/18 21:31 Dose: 100 mls/hr Ceftriaxone Sodium 2,000 mg/ (Sodium Chloride) 100 mls @ 200 mls/hr IV.SIG Q12H [facility] Last Admin: 10/03/18 08:35 Dose: 200 mls/hr Magnesium Sulfate 4 gm/ Sodium (Chloride) 100 mls @ 50 mls/hr IV.SIG UNSCH PRN PRN Reason: For Magnesium 0.9 - 1.1 mg/dL Magnesium Sulfate 2 gm/ Sodium (Chloride) 100 mls @ 50 mls/hr IV.SIG UNSCH PRN PRN Reason: For Magnesium 1.2 - 1.6 mg/dL Potassium Chloride (Kcl 40 Meq Premix Inj) 40 meq in 100 mls @ 25 mls/hr IV.SIG Q2H PRN PRN Reason: For Potassium 2.8 - 3.2 mEq/L Potassium Chloride (Kcl 20 Meq Premix Inj) 20 meq in 100 mls @ 50 mls/hr IV.SIG Q2H PRN PRN Reason: For Potassium 3.3 - 3.5 mEq/L Potassium Chloride (Kcl 40 Meq Premix Inj) 40 meq in 100 mls @ 25 mls/hr IV.SIG UNSCH PRN PRN Reason: For Potassium 3.3 - 3.5 mEq/L Potassium Chloride (Kcl 20 Meq Premix Inj) 20 meq in 100 mls @ 50 mls/hr IV.SIG Q2H PRN PRN Reason: For Potassium 2.8 - 3.2 mEq/L Potassium Phosphate 30 mmol/ (Sodium Chloride) 260 mls @ 42 mls/hr IV.SIG UNSCH PRN PRN Reason: SEE LABEL COMMENTS Sodium Phosphate 30 mmol/ (Sodium Chloride) 260 mls @ 42 mls/hr IV.SIG UNSCH PRN PRN Reason: For Phosphorus < 2.5 mg/dL Vancomycin HCl 1,750 mg/ (Sodium Chloride) 517.5 mls @ 258.75 mls/hr IV.SIG Q12H ONI Insulin Aspart (Novolog Insulin Correctional Sugar Inj) 0 unit SQ Q6HR [facility]; Protocol Last Admin: 10/03/18 13:22 Dose: Not Given Lactulose (Lactulose Liq) 30 ml PO DAILY PRN PRN Reason: SEVERE CONSITIPATION Magnesium Oxide (Mag-Ox) 800 mg PO UNSCH PRN PRN Reason: For Magnesium 1.2 - 1.6 mg/dL Miscellaneous Information ([facility] Ordered Lab Info) 0 each OTHER ONCE ONE Stop: 10/04/18 05:46 Miscellaneous Medication () 1 each OROPHARYNG 0000,0400,1200,1600 [facility] Last Admin: 10/03/18 04:20 Dose: 1 each Morphine Sulfate (Morphine Inj) 2 mg IV.PUSH Q2H PRN PRN Reason: PAIN SCALE 6 TO 10 Last Admin: 10/03/18 13:08 Dose: 2 mg Ondansetron HCl (Zofran Inj) 4 mg IV.PUSH Q6H PRN PRN Reason: NAUSEA OR VOMITING Pharmacy Profile Note (Vancomycin Consult Pharmacy) 1 each OTHER UNSCH PRN PRN Reason: Pharmacy to dose Phenytoin Sodium (Dilantin) 300 mg NG/OG Q8H [facility] Last Admin: 10/03/18 06:29 Dose: 300 mg Potassium Bicarb/Potassium Chloride (K-Lyte Cl Eff) 50 meq PO UNSCH PRN PRN Reason: For Potassium 3.3 - 3.5 mEq/L Potassium Phosphate (K-Phos Original) 2,000 mg PO Q4H PRN PRN Reason: Phosphorus Less Than 2.5 mg/dL Last Admin: 10/03/18 08:36 Dose: 2,000 mg Potassium Phosphate (K-Phos Original) 2,000 mg PO UNSCH PRN PRN Reason: SEE LABEL COMMENTS Senna/Docusate Sodium (Jinny-Colace) 1 tab PO BID [facility] Last Admin: 10/03/18 08:35 Dose: 1 tab Sennosides (Senokot) 17.2 mg PO Q12H PRN PRN Reason: Moderate Constipation Sodium Chloride (Ns Flush) 2 ml IV.FLUSH BID ONI Last Admin: 10/03/18 08:58 Dose: 2 ml Sodium Chloride (Ns Flush) 2 ml IV.FLUSH PRN PRN PRN Reason: FLUSH AFTER USING IV ACCESS Allergies Allergy/AdvReac Type Severity Reaction Status Date / Time ibuprofen Allergy Anaphylaxis Verified 10/02/18 10:22 Iodine and Iodide Containing Allergy Anaphylaxis Verified 10/02/18 10:22 Produc ketorolac Allergy Anaphylaxis Verified 10/02/18 10:22 naproxen Allergy Anaphylaxis Verified 10/02/18 10:22 Penicillins Allergy Anaphylaxis Verified 10/02/18 10:22 Sulfa (Sulfonamide Allergy Anaphylaxis Verified 10/02/18 10:22 Antibiotics) Home Medications Medication Instructions Recorded Confirmed Type Dilantin 300 mg PO TID 06/04/18 10/02/18 History Exam Vital signs: Vital Signs 10/02/18 14:08 10/02/18 15:19 10/02/18 15:27 Temperature Pulse Rate 92 H 108 H Respiratory Rate 18 18 23 Blood Pressure 138/69 138/78 Pulse Oximetry 95 94 L 100 10/02/18 15:30 10/02/18 16:06 10/02/18 18:13 Temperature Pulse Rate 105 H Respiratory Rate 12 12 Blood Pressure 121/73 Pulse Oximetry 100 99 10/02/18 21:09 10/02/18 21:12 10/02/18 21:28 Temperature Pulse Rate 89 Respiratory Rate 17 Blood Pressure 111/55 L Pulse Oximetry 96 95 99 10/02/18 22:00 10/02/18 22:25 10/02/18 23:00 Temperature 98.8 F Pulse Rate 84 81 73 Respiratory Rate 20 15 14 Blood Pressure 120/63 113/59 L Pulse Oximetry 100 100 100 10/02/18 23:36 10/03/18 00:00 10/03/18 01:00 Temperature 99.2 F Pulse Rate 72 70 Respiratory Rate 18 18 16 Blood Pressure 116/59 L 114/55 L Pulse Oximetry 100 100 100 10/03/18 02:00 10/03/18 03:00 10/03/18 04:00 Temperature 99.5 F Pulse Rate 68 71 75 Respiratory Rate 16 14 16 Blood Pressure 112/59 L 117/64 122/67 Pulse Oximetry 100 100 100 10/03/18 04:23 10/03/18 05:00 10/03/18 06:00 Temperature Pulse Rate 69 74 Respiratory Rate 14 12 14 Blood Pressure 113/57 L Pulse Oximetry 100 100 100 10/03/18 08:00 10/03/18 09:10 10/03/18 12:49 Temperature 99.2 F Pulse Rate 70 Respiratory Rate 14 12 Blood Pressure Pulse Oximetry 100 97 100 10/03/18 12:50 Temperature Pulse Rate Respiratory Rate 13 Blood Pressure Pulse Oximetry 98 Intake & Output 10/02/18 10/03/18 10/03/18 18:59 06:59 18:59 Intake Total 1999 / 1999 450 / 450 Output Total 1900 / 1900 1500 / 1500 Balance -1900 / -1900 500 / 500 450 / 450 Weight 136.078 kg 143.2 kg Intake: IV 500 / 500 450 / 450 Diprivan 1000 mg/100 ml Inj 1, 300 / 300 200 / 200 000 mg In 100 ml @ 5 MCG/KG/MIN 4.082 mls/hr IV.CONT TITRATE PRN Rx#:[id number] Rocephin Inj 1,000 MG In NS Inj 100 / 100 100 ML @ 200 mls/hr IV.SIG ONCE ONE Rx#:[id number] fentaNYL 10 mcg/mL Premix Drip 250 / 250 2,500 mcg In 250 ml @ 50 MCG/HR 5 mls/hr IV.SIG TITRATE PRN Rx #:[id number] Flagyl 500 MG Inj 100 ML @ 0 100 / 100 mls/hr IV.SIG .STK-MED ONE Rx#: [id number] Anesthesia Amount 1500 / 1500 Output: Estimated Blood Loss 400 / 400 Urine Amount (Catheter) 1900 / 1900 900 / 900 Indwelling Urethral Catheter 1900 / 1900 900 / 900 Gastric Drainage 50 / 50 Oral Orogastric Tube 50 / 50 Wound Drainage 150 / 150 # 1 Posterior DAVY Drain 150 / 150 Other: # Bowel Movements 0 # Incontinent Bowel Movements 0 Weight On Admission 141.5 kg Narrative: GENERAL: Awake, opens eyes on the vent. SKIN: Cool and dry, no generalized rash HEAD: Atraumatic. Normocephalic. No temporal or scalp tenderness. EYES: Pupils equal round and reactive. Scleral icterus. No injection or drainage. No petechia ENT: Orally intubated NECK: Trachea midline. Supple, nontender, no meningeal signs. CARDIOVASCULAR: HS audible. RESPIRATORY: Air entry equal bilaterally. Clear to auscultation bilaterally. GASTROINTESTINAL: Abdomen soft,NT MUSCULOSKELETAL: Extremities without clubbing, cyanosis. Rt Knee TKR site with no e.o infection. Drains visible with sanguinous drainage. NEUROLOGICAL: moves UE, opens eyes follows simple commands, nods yes and no to questions. Psych cooperative IV line sites ok. Results - Labs CBC & Chem 7: 10/03/18 05:51 10/03/18 05:51 Labs: Laboratory Results - last 24 hr 10/02/18 10/02/18 10/02/18 21:32 23:31 23:52 WBC 12.4 H RBC 3.29 L Hgb 10.0 L Hct 29.6 L MCV 90.2 MCH 30.3 MCHC 33.6 RDW 15.3 Plt Count 206 MPV 9.0 Neut % (Auto) Lymph % (Auto) Henderson % (Auto) Eos % (Auto) Baso % (Auto) Neut # (Auto) Lymph # (Auto) Henderson # (Auto) Eos # (Auto) Baso # (Auto) WBC Differential Differential Comment PT INR APTT Sodium Potassium Chloride Carbon Dioxide Anion Gap BUN Creatinine Estimated GFR POC Glucose 187 H Random Glucose Calcium Phosphorus Magnesium Total Bilirubin AST ALT Alkaline Phosphatase Total Protein Albumin Nasal Screen MRSA (PCR) Not detected Urine Opiates Screen Ur Barbiturates Screen Phenytoin Ur Amphetamines Screen U Benzodiazepines Scrn Urine Cocaine Screen U Cannabinoids Screen 10/02/18 10/02/18 10/02/18 23:52 23:52 23:52 WBC RBC Hgb Hct MCV MCH MCHC RDW Plt Count MPV Neut % (Auto) Lymph % (Auto) Henderson % (Auto) Eos % (Auto) Baso % (Auto) Neut # (Auto) Lymph # (Auto) Henderson # (Auto) Eos # (Auto) Baso # (Auto) WBC Differential Differential Comment PT 12.2 H INR 1.2 APTT 29.3 Sodium 142 Potassium 3.7 Chloride 111 H Carbon Dioxide 24.7 Anion Gap 6 BUN 11 Creatinine 0.57 L Estimated GFR Greater than 89 POC Glucose Random Glucose 162 H Calcium 8.1 L Phosphorus Magnesium Total Bilirubin 0.2 AST 17 ALT 35 Alkaline Phosphatase 122 H Total Protein 7.1 Albumin 2.3 L Nasal Screen MRSA (PCR) Urine Opiates Screen Pos H Ur Barbiturates Screen Neg Phenytoin Ur Amphetamines Screen Neg U Benzodiazepines Scrn Pos H Urine Cocaine Screen Neg U Cannabinoids Screen Neg 10/03/18 10/03/18 10/03/18 05:51 05:51 05:51 WBC 11.6 H RBC 3.23 L Hgb 9.7 L Hct 30.0 L MCV 92.9 MCH 29.9 MCHC 32.2 RDW 14.9 Plt Count 220 MPV 9.3 Neut % (Auto) 87.8 H Lymph % (Auto) 7.2 L Henderson % (Auto) 5.0 Eos % (Auto) 0.0 Baso % (Auto) 0.0 Neut # (Auto) 10.2 H Lymph # (Auto) 0.8 L Henderson # (Auto) 0.6 Eos # (Auto) 0.0 Baso # (Auto) 0.0 WBC Differential . Differential Comment Auto diff final PT 12.3 H INR 1.2 APTT Sodium 143 Potassium 3.8 Chloride 111 H Carbon Dioxide 23.7 Anion Gap 8 BUN 12 Creatinine 0.56 L Estimated GFR Greater than 89 POC Glucose Random Glucose 145 H Calcium 8.2 L Phosphorus 2.2 L Magnesium 1.9 Total Bilirubin 0.2 AST 15 ALT 32 Alkaline Phosphatase 116 Total Protein 7.2 Albumin 2.4 L Nasal Screen MRSA (PCR) Urine Opiates Screen Ur Barbiturates Screen Phenytoin 1.1 L Ur Amphetamines Screen U Benzodiazepines Scrn Urine Cocaine Screen U Cannabinoids Screen 10/03/18 06:18 WBC RBC Hgb Hct MCV MCH MCHC RDW Plt Count MPV Neut % (Auto) Lymph % (Auto) Henderson % (Auto) Eos % (Auto) Baso % (Auto) Neut # (Auto) Lymph # (Auto) Henderson # (Auto) Eos # (Auto) Baso # (Auto) WBC Differential Differential Comment PT INR APTT Sodium Potassium Chloride Carbon Dioxide Anion Gap BUN Creatinine Estimated GFR POC Glucose 153 H Random Glucose Calcium Phosphorus Magnesium Total Bilirubin AST ALT Alkaline Phosphatase Total Protein Albumin Nasal Screen MRSA (PCR) Urine Opiates Screen Ur Barbiturates Screen Phenytoin Ur Amphetamines Screen U Benzodiazepines Scrn Urine Cocaine Screen U Cannabinoids Screen - Imaging Impressions Lumbar Spine MRI 10/02/18 10:28 CONCLUSION: 1. No fracture, subluxation, abscess or mass of the lumbar spine. 2. Mild degenerative disc disease with a small right paracentral disc protrusion at L1/L2. No associated significant foraminal or spinal stenosis. 3. Mild bilateral facet osteoarthritis throughout. Thoracic Spine MRI 10/02/18 10:28 CONCLUSION: 1. Complex collection in the posterior epidural space extending from T6 to T11 with its epicenter at the T9 level. There is epidural enhancement with small nonenhancing components. The signal changes with lack of fat suppression are indicative of subacute hemorrhage. The nonenhancing components located at the T9 level are suspicious for small abscess formation. 2. Right-sided bone marrow edema with abnormal enhancement involving the T9 and T10 vertebral bodies suspicious for vertebral body involvement and osteomyelitis. 3. Moderates compromise of the spinal canal with compression of the spinal cord. 4. Multiloculated fluid collections with surrounding enhancement are identified in the right paraspinal region at the T9 level characteristic of small paraspinal hematoma and/or abscess. 5. Extensive lower lobe consolidating lung disease. 6. Report conveyed to emergency physician. Chest X-Ray 10/02/18 21:21 CONCLUSION: 1. Interim thoracic spine surgery. 2. Endotracheal tube and left subclavian central venous catheter as described. No pneumothorax. 3. Mild bibasilar atelectasis. Assessment and Plan - Plan Thoracic epidural abscess multi level multi loculated. Recent Right TKR 08/30/2018 Paraplegia with retention of urine Morbid Obesity with BMI: 42.8 kg/m2 Recs: Continue Ceftriaxone IV Continue Vanco IV (target 15-20 for epidural abscess) Follow [facility] cultures for susceptibilities to adjust antibiotics. Follow cultures at [place] blood and intra op cultures. follow clinical course. Follow post op MRI. Will need long course of IV antibiotics but not ready for PICC. PICC insertion only after ID clearance. dw Reviewed Radiology imaging bedside: Right knee no effusion, hardware in place on my review. Follow CXR
--- NOTE | 2018-10-03 13:48 | MR ---
EXAM DATE: 10/03/2018 1:23 PM EST AGE/SEX: 38 years / Male INDICATIONS: Abscess. Post laminectomy. CLINICAL DATA: This is the patient's initial encounter. Patient reports that signs and symptoms have been present for 3 days and indicates a pain score of 7/10. MEDICAL/SURGICAL HISTORY: Diabetes mellitus type II. Cholecystectomy. Total knee replacement, right. COMPARISON: [facility], MR LUMBAR SPINE W & W/O CONTRAST, 10/02/2018. . TECHNIQUE: Multiplanar, multisequence MRI examination of the lumbar spine was performed without and with 14 ml Gadavist (gadobutrol) contrast as a single exam dose. FINDINGS: The most caudal-appearing lumbar vertebra is numbered as L5. Vertebra: Homogeneous signal. Normal alignment. Conus: Normal level and configuration. Post Contrast: No abnormal areas of contrast enhancement are seen. T12-L1: The thecal sac has a normal diameter. No evidence of disc bulge or protrusion. The neural foramina are patent bilaterally. L1-L2: Mild broad-based protrusion more eccentric to the right abuts the ventral thecal sac. Minima l extruded component extending superiorly underneath the posterior longitudinal ligament. No canal st enosis. The neural foramina are patent bilaterally. L2-L3: The thecal sac has a normal diameter. No evidence of disc bulge or protrusion. The neural foramina are patent bilaterally. Mild facet arthropathy. L3-L4: The thecal sac has a normal diameter. No evidence of disc bulge or protrusion. The neural foramina are patent bilaterally. Mild to moderate facet arthropathy. L4-L5: The thecal sac has a normal diameter. No evidence of disc bulge or protrusion. The neural foramina are patent bilaterally. Moderate facet arthropathy. L5-S1: The thecal sac has a normal diameter. No evidence of disc bulge or protrusion. The neural foramina are patent bilaterally. Mild facet arthropathy. CONCLUSION: 1. Right-sided protrusion at L1-2 with minimal extruded component. No canal stenosis. 2. Facet arthropathy lower lumbar spine. Electronically signed by: Fuentes Viveros MD 10/03/2018 1:46 PM EST
--- NOTE | 2018-10-03 14:16 | XR ---
EXAM DATE: 10/03/2018 2:08 PM EST AGE/SEX: 38 years / Male INDICATIONS: Swelling. CLINICAL DATA: This is the patient's initial encounter. Patient reports that signs and symptoms have been present for 3 days and indicates a pain score of Nonresponsive. MEDICAL/SURGICAL HISTORY: None. . right knee replacement. COMPARISON: [facility], KNEE RIGHT COMPLETE (4VWS), 05/30/2017. . FINDINGS: Views right knee demonstrates arthroplasty. No hardware loosening or fracture. Soft tissue swelling. There may be a small joint effusion. CONCLUSION: 1. Soft tissue swelling without fracture. 2. Possible small joint effusion Electronically signed by: Fuentes Viveros MD 10/03/2018 2:15 PM EST
--- NOTE | 2018-10-03 14:26 | P.PNNS ---
Subjective Interval history: intubated, awake, gross slight movement right lower to command Physical Exam Vital signs: Vital Signs 10/02/18 15:19 10/02/18 15:27 10/02/18 15:30 Temperature Pulse Rate 108 H Respiratory Rate 18 23 Blood Pressure 138/78 Pulse Oximetry 94 L 100 100 10/02/18 16:06 10/02/18 18:13 10/02/18 21:09 Temperature Pulse Rate 105 H Respiratory Rate 12 12 Blood Pressure 121/73 Pulse Oximetry 99 96 10/02/18 21:12 10/02/18 21:28 10/02/18 22:00 Temperature Pulse Rate 89 84 Respiratory Rate 17 20 Blood Pressure 111/55 L Pulse Oximetry 95 99 100 10/02/18 22:25 10/02/18 23:00 10/02/18 23:36 Temperature 98.8 F Pulse Rate 81 73 Respiratory Rate 15 14 18 Blood Pressure 120/63 113/59 L Pulse Oximetry 100 100 100 10/03/18 00:00 10/03/18 01:00 10/03/18 02:00 Temperature 99.2 F Pulse Rate 72 70 68 Respiratory Rate 18 16 16 Blood Pressure 116/59 L 114/55 L 112/59 L Pulse Oximetry 100 100 100 10/03/18 03:00 10/03/18 04:00 10/03/18 04:23 Temperature 99.5 F Pulse Rate 71 75 Respiratory Rate 14 16 14 Blood Pressure 117/64 122/67 Pulse Oximetry 100 100 100 10/03/18 05:00 10/03/18 06:00 10/03/18 08:00 Temperature 99.2 F Pulse Rate 69 74 70 Respiratory Rate 12 14 14 Blood Pressure 113/57 L Pulse Oximetry 100 100 100 10/03/18 09:10 10/03/18 12:49 10/03/18 12:50 Temperature Pulse Rate Respiratory Rate 12 13 Blood Pressure Pulse Oximetry 97 100 98 Intake & Output 10/02/18 10/03/18 10/03/18 18:59 06:59 18:59 Intake Total 1999 450 / 450 Output Total 1900 / 1900 1500 / 1500 Balance -1900 / -1900 500 / 500 450 / 450 Weight 136.078 kg 143.2 kg Intake: IV 500 / 500 450 / 450 Diprivan 1000 mg/100 ml Inj 1, 300 / 300 200 / 200 000 mg In 100 ml @ 5 MCG/KG/MIN 4.082 mls/hr IV.CONT TITRATE PRN Rx#:[id number] Rocephin Inj 1,000 MG In NS Inj 100 / 100 100 ML @ 200 mls/hr IV.SIG ONCE ONE Rx#:[id number] fentaNYL 10 mcg/mL Premix Drip 250 / 250 2,500 mcg In 250 ml @ 50 MCG/HR 5 mls/hr IV.SIG TITRATE PRN Rx #:[id number] Flagyl 500 MG Inj 100 ML @ 0 100 / 100 mls/hr IV.SIG .STK-MED ONE Rx#: [id number] Anesthesia Amount 1500 / 1500 Output: Estimated Blood Loss 400 / 400 Urine Amount (Catheter) 1900 / 1900 900 / 900 Indwelling Urethral Catheter 1900 / 1900 900 / 900 Gastric Drainage 50 / 50 Oral Orogastric Tube 50 / 50 Wound Drainage 150 / 150 # 1 Posterior DAVY Drain 150 / 150 Other: # Bowel Movements 0 # Incontinent Bowel Movements 0 Weight On Admission 141.5 kg Narrative: intubated awake, alert, communicate by writing minimal 1-2/5 movement RLE to command, slight withdrawal to pain LLE, moving UE well but limited due to clinical condition - Urinary Catheter Management Indwelling Urethral Catheter Cath placed during this visit: no Reason for continuing: Acute urinary retention Assessment and Plan - Plan 38 M s/p T5-T11 laminectomies for decompression of spinal cord and evacuation of abscess by Dr. Manuel (10/02/18) paraplegia cont DAVY draining for follow up MRI T/L spine today follow up cultures ID consult for abx mgt extubate per CCM PT, OT
--- NOTE | 2018-10-03 14:29 | XR ---
EXAM DATE: 10/03/2018 2:17 PM EST AGE/SEX: 38 years / Male INDICATIONS: Pneumonia. CLINICAL DATA: This is the patient's initial encounter. Patient reports that signs and symptoms have been present for 1 week and indicates a pain score of 0/10. MEDICAL/SURGICAL HISTORY: Carcinoma, testicular. hernia . hernia mesh,orchiectomy COMPARISON: [facility] [place], CHEST 1V SINGLE AP, 10/02/2018. . FINDINGS: A single AP view of the chest demonstrates the lungs to be symmetrically aerated without evidence of mass, infiltrate or effusion. The cardiomediastinal contours are unremarkable. Osseous structures a re intact. Endotracheal tube and nasogastric tube unchanged. Surgical morelia are seen along the mid line vertically. CONCLUSION: No acute cardiopulmonary disease. Electronically signed by: Fuentes Viveros MD 10/03/2018 2:28 PM EST
--- NOTE | 2018-10-03 14:43 | MR ---
EXAM DATE: 10/03/2018 1:32 PM EST AGE/SEX: 38 years / Male INDICATIONS: Abscess. Post laminectomy. CLINICAL DATA: This is the patient's initial encounter. Patient reports that signs and symptoms have been present for 2 days and indicates a pain score of 6/10. MEDICAL/SURGICAL HISTORY: Diabetes mellitus type II. Cholecystectomy. Total knee replacement, right. COMPARISON: [facility] [place], [place] THORACIC SPINE W & W/O CON, 10/02/2018. . TECHNIQUE: Multiplanar, multisequence MRI of the thoracic spine was performed without and with 14 ml Gadavist (gadobutrol) contrast as a single exam dose. FINDINGS: Vertebrae: Normal vertebral body height. Homogeneous marrow signal. Alignment: Normal. Cord: There is some minimal T2 signal within the cord from T9 to the superior aspect of T11. The spi nal cord is otherwise unremarkable. Post Contrast: No abnormal areas of enhancement are seen in the cord, dural or paraspinal regions. P ostsurgical changes in the posterior soft tissues with defect at T10-11. Previously identified pre billing clinician ior epidural abscess/hematoma has been evacuated T1-T2: The thecal sac has a normal diameter. No evidence of disc bulge or protrusion. T2-T3: Mild broad-based disc bulge abuts the ventral thecal sac without canal stenosis. T3-T4: Small central protrusion abuts the ventral thecal sac without canal stenosis. T4-T5: The thecal sac has a normal diameter. No evidence of disc bulge or protrusion. T5-T6: The thecal sac has a normal diameter. No evidence of disc bulge or protrusion. T6-T7: Mild broad-based disc bulge abuts ventral thecal sac without canal stenosis T7-T8: The thecal sac has a normal diameter. No evidence of disc bulge or protrusion. T8-T9: The thecal sac has a normal diameter. No evidence of disc bulge or protrusion. T9-T10: Small left paracentral protrusion abuts the ventral thecal sac without stenosis. T10-T11: The thecal sac has a normal diameter. No evidence of disc bulge or protrusion. T11-T12: The thecal sac has a normal diameter. No evidence of disc bulge or protrusion. T12-L1: The thecal sac has a normal diameter. No evidence of disc bulge or protrusion. CONCLUSION: 1. Minimal T2 signal within the cord from T9 to T11 likely some edema from reexpansion of the cord. 2. Postsurgical changes with evacuation of the posterior epidural abscess/hematoma. Electronically signed by: Fuentes Viveros MD 10/03/2018 2:42 PM EST
--- NOTE | 2018-10-03 16:17 | XR ---
EXAM DATE: 10/02/2018 6:00 PM EST AGE/SEX: 38 years / Male INDICATIONS: Level location Thoracic spine, laminectomy CLINICAL DATA: This is the patient's initial encounter. Patient reports that signs and symptoms have been present for 1 day and indicates a pain score of Nonresponsive. MEDICAL/SURGICAL HISTORY: . : Diabetes mellitus type II. Cholecystectomy. . None. Total knee r eplacement, right COMPARISON: [facility] [place] THORACIC SPINE W & W/O CON, 10/02/2018. . FINDINGS: A single view of the spine was performed. The thoracolumbar junction is identified. The eighth throug h 12th ribs are visualized. Level localizer was placed at the T9 level. CONCLUSION: AP view of the thoracolumbar spine was obtained for level localization. Electronically signed by: Santosh Corado MD 10/03/2018 4:16 PM EST
[2018-10-03] MEDS: Sod Chloride 0.9% Inj 1,000 ML IV.CONT SCH (17:54)
[2018-10-03] MEDS ORDERED: Vancomycin Inj 1,750 MG in Sodium Chlor 0.9% Inj 500 ML IV.SIG SCH (18:00)
[2018-10-03] MEDS: Morphine Inj 4 MG/ML Vial IV.PUSH PRN (22:28)
[2018-10-04] MEDS: Morphine Inj 4 MG/ML Vial IV.PUSH PRN ×7 (02:20→23:38)
[2018-10-04] MEDS: Insulin NovoLOG Aspart Correctional Sugar Inj SQ SCH ×4 (02:25→18:46)
[2018-10-04] MEDS: Oral Hygiene Kit OROPHARYNG SCH ×4 (02:25→18:46)
[2018-10-04] MEDS: Chlorhexidine Gluconate 2% 1 Pack (2 Cloths) TOPICAL SCH (04:33)
[2018-10-04] MEDS: Sod Chloride 0.9% Inj 1,000 ML IV.CONT SCH ×4 (05:03→21:39)
--- NOTE | 2018-10-04 05:07 | XR ---
EXAM DATE: 10/04/2018 4:39 AM EST AGE/SEX: 38 years / Male INDICATIONS: Shortness of breath, possible respiratory disease. CLINICAL DATA: This is the patient's subsequent encounter. Patient reports that signs and symptoms h ave been present for 2 days and indicates a pain score of Nonresponsive. MEDICAL/SURGICAL HISTORY: Diabetes. Epilepsy None. COMPARISON: [facility] [place], CHEST 1V SINGLE AP, 10/03/2018. . FINDINGS: There has been interval extubation. There is mild parenchymal opacity at the right lung base and slig ht perihilar right lung opacity bilaterally. Cardiac contours are grossly unchanged. Left subclavian central line is again noted. Midline skin morelia noted. CONCLUSION: Slight interval worsening in aeration Electronically signed by: Hieu Centeno MD 10/04/2018 5:05 AM EST
[2018-10-04 05:52] LABS: Hematocrit 28.8 % (39.0-51.0); Hemoglobin 9.7 gm/dL (13.0-17.0); Mean Corpuscular HGB Conc 33.7 % (32.0-36.0); Mean Corpuscular Hemoglobin 30.5 pg (27.0-34.0); Mean Corpuscular Volume 90.5 fL (80.0-100.0); Mean Platelet Volume 9.5 fL (7.0-11.0); Platelet Count 211 th/mm3 (150-450); Red Blood Count 3.18 mil/mm3 (4.50-5.90); Red Cell Distribution Width 15.3 % (11.6-17.2); White Blood Count 8.9 th/mm3 (4.0-11.0)
[2018-10-04 06:17] LABS: Alanine Aminotransferase 51 U/L (12-78); Albumin 2.4 g/dL (3.4-5.0); Anion Gap 7 meq/L (5-15); Aspartate Aminotransferase 54 U/L (15-37); Calcium 7.6 mg/dL (8.5-10.1); Carbon Dioxide 25.4 meq/L (21.0-32.0); Chloride 110 meq/L (98-107); Glomerular Filtration Rate Greater Than 89 mL/min (>89); Glucose,Random 97 mg/dL (74-106); Magnesium 1.8 mg/dL (1.5-2.5); Potassium 3.3 meq/L (3.5-5.1); Sodium 142 meq/L (136-145)
[2018-10-04 06:19] LABS: Alkaline Phosphatase 119 U/L (45-117); Vancomycin,Trough 10.3 mcg/mL (5.0-10.0)
[2018-10-04 06:27] LABS: Blood Urea Nitrogen 12 mg/dL (7-18)
[2018-10-04] MEDS: Phenytoin Sodium 100 MG Capsule NG/OG SCH ×3 (06:33→22:41)
[2018-10-04] MEDS: Senna/Docusate Sodium 8.6/50 MG Tablet PO SCH ×2 (08:41→21:39)
[2018-10-04] MEDS: Famotidine PF Inj 20 MG/2 ML Vial IV.PUSH SCH ×2 (08:41→21:39)
[2018-10-04] MEDS ORDERED: Pharmacy Ordered Lab Info OTHER ONE (08:45)
[2018-10-04] MEDS ORDERED: Vancomycin Inj 1,750 MG in Sodium Chlor 0.9% Inj 500 ML IV.SIG SCH (09:00)
--- NOTE | 2018-10-04 09:26 | P.PNCC ---
Subjective Subjective Remarks/Hospital Course: 38-year-old male with PMH of seizure disorder, diabetes, obesity and total knee replacement 08/30/18. He presented with reported 5 day history of back and leg pain. He had urinary retention about 3 days ago and presented to ED at [facility] and Marie catheter was placed and he was discharged. The evening of 10/01 he developed paraplegia and presented again to [facility]. MRI could not be performed there due to patients weight/ body habitus. He was transferred to [facility] for MRI. He was not able to cooperate with MRI after multiple attempts and ultimately required intubation for MRI. MRI revealed T6-T11 epidural abscess with compression of the spinal cord. He underwent T5 to T11 laminectomy and epidural abscess evacuation 10/[address] Manuel. Intraoperative cultures were obtained. He had received rocephin and Vancomycin 10/02 at outside hospital at 8:30 am. He has been continued on Rocephin, vancomycin and Flagyl per neurosurgery. Orthopaedics evaluated his knee in OR and said it appeared to be normal post-op knee, no need to do arthrocentesis. Dr. Manuel states preoperatively he had flaccid paraplegia and sensory level for T10, could feel some pressure sensation. He denied fever, chills, history of IV drug use. Plan for him to remain intubated for postop MRI in the morning and extubate following. There was concern regarding traumatic intubation due to blood suctioned from ETT postintubation, however he currently has a cuff leak. Reportedly prelim report on blood culture at outside hospital was [facility], requesting fax these results. 10/03: Patient remains intubated but wakes up easily follows commands tolerate CPAP. Pre op thoracic MRI showed complex collection in the posterior epidural space extending from T6 to T11 with its epicenter at the T9 level indicative of subacute hemorrhage. The nonenhancing components located at the T9 level are suspicious for small abscess formation. There is also suspicion of T9 and T10 vertebral bodies osteomyelitis. Moderate compromise of the spinal canal with compression of the spinal cord. Also small paraspinal hematoma and/or abscess. Post op MRI pending at this time 10/04: Patient was extubated yesterday tolerating well. Breathing comfortably. MRI thoracic spine showed Minimal T2 signal within the cord from T9 to T11 likely some edema from reexpansion of the cord. Postsurgical changes with evacuation of the posterior epidural abscess/hematoma. Objective Vital Signs / I&O: Vital Signs 10/03/18 10:00 10/03/18 11:00 10/03/18 12:00 Temperature 97.6 F Pulse Rate 63 78 93 H Respiratory Rate 18 15 Blood Pressure 119/58 L 112/56 L Pulse Oximetry 100 100 10/03/18 12:34 10/03/18 12:49 10/03/18 12:50 Temperature Pulse Rate Respiratory Rate 13 Blood Pressure 105/57 L Pulse Oximetry 99 100 98 10/03/18 13:00 10/03/18 14:00 10/03/18 15:00 Temperature 99.1 F Pulse Rate 76 93 H 66 Respiratory Rate 12 21 16 Blood Pressure Pulse Oximetry 98 97 99 10/03/18 15:28 10/03/18 16:00 10/03/18 17:00 Temperature Pulse Rate 69 68 Respiratory Rate 18 19 Blood Pressure Pulse Oximetry 98 99 99 10/03/18 18:00 10/03/18 19:00 10/03/18 19:18 Temperature 98.4 F Pulse Rate 78 71 77 Respiratory Rate 14 21 18 Blood Pressure 121/62 Pulse Oximetry 99 99 99 10/03/18 20:00 10/03/18 20:38 10/03/18 21:00 Temperature 98.4 F Pulse Rate 76 83 Respiratory Rate 19 14 Blood Pressure 128/61 128/63 Pulse Oximetry 99 96 97 10/03/18 22:00 10/03/18 23:00 10/04/18 00:00 Temperature 97.5 F L Pulse Rate 82 79 85 Respiratory Rate 27 H 18 23 Blood Pressure 129/73 131/60 124/61 Pulse Oximetry 94 L 95 95 10/04/18 01:00 10/04/18 02:00 10/04/18 03:00 Temperature Pulse Rate 83 75 78 Respiratory Rate 16 16 15 Blood Pressure 115/59 L 119/59 L 122/77 Pulse Oximetry 93 L 95 93 L 10/04/18 04:00 10/04/18 05:00 10/04/18 06:00 Temperature 98.5 F Pulse Rate 76 80 78 Respiratory Rate 13 14 16 Blood Pressure 111/56 L 110/56 L 115/55 L Pulse Oximetry 94 L 95 93 L Intake & Output 1110/04/18 10/04/18 18:59 06:59 18:59 Intake Total 1850 / 1850 1977.5 / 1977.5 Output Total 690 / 690 870 / 870 Balance 1160 / 1160 1107.5 / 1107.5 Weight 145.9 kg Intake: IV 1610 / 1610 1617.5 / 1617.5 Diprivan 1000 mg/100 ml Inj 1, 210 / 210 000 mg In 100 ml @ 5 MCG/KG/MIN 4.082 mls/hr IV.CONT TITRATE PRN Rx#:[id number] NS Inj 1,000 ML @ 100 mls/hr IV 1000 / 1000 1000 / 1000 .CONT .Q10H ONI Rx#:[id number] Vancomycin Inj 1,750 MG In NS 517.5 / 517.5 Inj 500 ML @ 258.75 mls/hr IV. SIG Q12H ONI Rx#:[id number] Rocephin Inj 2,000 MG In NS Inj 100 / 100 100 / 100 100 ML @ 200 mls/hr IV.SIG Q12H ONI Rx#:[id number] fentaNYL 10 mcg/mL Premix Drip 300 / 300 2,500 mcg In 250 ml @ 50 MCG/HR 5 mls/hr IV.SIG TITRATE PRN Rx #:[id number] Oral 240 / 240 360 / 360 Output: Urine Amount (Catheter) 650 / 650 850 / 850 Indwelling Urethral Catheter 650 / 650 850 / 850 Wound Drainage 40 / 40 20 / 20 # 1 Posterior DAVY Drain 40 / 40 20 / 20 Other: # Bowel Movements 0 # Incontinent Bowel Movements 0 Result Diagrams: 10/04/18 05:20 10/04/18 05:20 Objective Remarks: GENERAL: Well-nourished, well-developed obese patient SKIN: Warm and dry. HEAD: Atraumatic. Normocephalic. EYES: Pupils equal and round, 2 mm and reactive bilaterally. No scleral icterus. No injection or drainage. ENT: No nasal bleeding or discharge. Mucous membranes pink and moist. NECK: Trachea midline. No JVD. CARDIOVASCULAR: Regular rate and rhythm. No murmurs rubs or gallops. RESPIRATORY: No accessory muscle use. Clear to auscultation. Breath sounds equal bilaterally. GASTROINTESTINAL: Abdomen soft, non-tender, nondistended. Bowel sounds present. MUSCULOSKELETAL: Extremities without clubbing, cyanosis. Healing incision overlying right knee, no erythema or drainage. NEUROLOGICAL: Alert awake oriented x3. Normal strength upper extremities. Squeezes hands bilaterally with firm adult specialist to command. No motor activity bilateral lower extremities. No response to Babinski. Assessment and Plan - Problem List (1) Obesity Code(s): E66.9 - Obesity, unspecified Status: Acute (2) Respiratory failure Code(s): J96.90 - Respiratory failure, unspecified, unspecified whether with hypoxia or hypercapnia Status: Acute (3) Flaccid paralysis Code(s): G83.89 - Other specified paralytic syndromes Status: Acute (4) Seizure disorder Code(s): G40.909 - Epilepsy, unspecified, not intractable, without status epilepticus Status: Chronic (5) Diabetes mellitus Code(s): E11.9 - Type 2 diabetes mellitus without complications Status: Chronic - Assessment and Plan Plan: NEURO: Epidural abscess s/p T5-T11 laminectomy and abscess evacuation 10/[address] Manuel Flaccid paraplegia Seizure disorder Remains off all continuous sedation MRI thoracic spine 10/04 post opshows good evacuation of hematoma/abscess with expected postop changes. Minimal T2 signal within the cord from T9 to T11 likely some edema from reexpansion of the cord. DAVY drain in place, monitoring output, management per neurosurgery. Continue Dilantin 300 mg PO 3 times daily. RESP: Acute respiratory failure-resolved Extubated yesterday tolerating well, continue with aggressive pulmonary toilet CV: 0.9 NaCL @ 100ml/hr-discontinue today, avoid hypotension GI: Obesity Advance diet as tolerated Bowel regimen FEN/RENAL: Urinary retention Maintain Marie, initiate bladder training. Monitor intake and output. Monitor electrolytes and replace as indicated per ICU electrolyte replacement protocol ID: Epidural abscess Obtain blood culture results from outside hospital. Current blood cultures negative to date Dr. Manuel states intraoperative port cultures were obtained. He requests continuation of Rocephin, vancomycin, Flagyl. ID following. Pt has reported history of anaphylaxis to penicillin. Has had 2 doses of Rocephin at this point with no untoward effect. Reportedly no history of IVDU. HEME: Obtain postop CBC, coags. ENDO: Diabetes mellitus Monitor bedside glucose every 6 hours and administer low-dose insulin sliding scale as indicated. PROPH: SCD for DVT prophylaxis. Avoid pharmacologic DVT prophylaxis due to immediate postop epidural evacuation. Famotidine for stress ulcer prophylaxis. ACCESS: L subclavian CVL placed in OR 10/02-DC 10/04 Full code Level 2 Consult hospitalist to assume care 10/05/2018, transferred to [facility]. neuro floor Code Status: Full
--- NOTE | 2018-10-04 09:56 | P.PNNS ---
Subjective Interval history: Stable overnight. Slight improvement in lower extremity strength. Spasms involving both legs Physical Exam Vital signs: Vital Signs 10/03/18 10:00 10/03/18 11:00 10/03/18 12:00 Temperature 97.6 F Pulse Rate 63 78 93 H Respiratory Rate 18 15 Blood Pressure 119/58 L 112/56 L Pulse Oximetry 100 100 10/03/18 12:34 10/03/18 12:49 10/03/18 12:50 Temperature Pulse Rate Respiratory Rate 13 Blood Pressure 105/57 L Pulse Oximetry 99 100 98 10/03/18 13:00 10/03/18 14:00 10/03/18 15:00 Temperature 99.1 F Pulse Rate 76 93 H 66 Respiratory Rate 12 21 16 Blood Pressure Pulse Oximetry 98 97 99 10/03/18 15:28 10/03/18 16:00 10/03/18 17:00 Temperature Pulse Rate 69 68 Respiratory Rate 18 19 Blood Pressure Pulse Oximetry 98 99 99 10/03/18 18:00 10/03/18 19:00 10/03/18 19:18 Temperature 98.4 F Pulse Rate 78 71 77 Respiratory Rate 14 21 18 Blood Pressure 121/62 Pulse Oximetry 99 99 99 10/03/18 20:00 10/03/18 20:38 10/03/18 21:00 Temperature 98.4 F Pulse Rate 76 83 Respiratory Rate 19 14 Blood Pressure 128/61 128/63 Pulse Oximetry 99 96 97 10/03/18 22:00 10/03/18 23:00 10/04/18 00:00 Temperature 97.5 F L Pulse Rate 82 79 85 Respiratory Rate 27 H 18 23 Blood Pressure 129/73 131/60 124/61 Pulse Oximetry 94 L 95 95 10/04/18 01:00 10/04/18 02:00 10/04/18 03:00 Temperature Pulse Rate 83 75 78 Respiratory Rate 16 16 15 Blood Pressure 115/59 L 119/59 L 122/77 Pulse Oximetry 93 L 95 93 L 10/04/18 04:00 10/04/18 05:00 10/04/18 06:00 Temperature 98.5 F Pulse Rate 76 80 78 Respiratory Rate 13 14 16 Blood Pressure 111/56 L 110/56 L 115/55 L Pulse Oximetry 94 L 95 93 L 10/04/18 08:00 Temperature Pulse Rate 77 Respiratory Rate Blood Pressure Pulse Oximetry 92 L Intake & Output 10/03/18 10/04/18 10/04/18 18:59 06:59 18:59 Intake Total 1850 / 1850 1977.5 / 1977.5 Output Total 690 / 690 870 / 870 Balance 1160 / 1160 1107.5 / 1107.5 Weight 145.9 kg Intake: IV 1610 / 1610 1617.5 / 1617.5 Diprivan 1000 mg/100 ml Inj 1, 210 / 210 000 mg In 100 ml @ 5 MCG/KG/MIN 4.082 mls/hr IV.CONT TITRATE PRN Rx#:[id number] NS Inj 1,000 ML @ 100 mls/hr IV 1000 / 1000 1000 / 1000 .CONT .Q10H ONI Rx#:[id number] Vancomycin Inj 1,750 MG In NS 517.5 / 517.5 Inj 500 ML @ 258.75 mls/hr IV. SIG Q12H ONI Rx#:[id number] Rocephin Inj 2,000 MG In NS Inj 100 / 100 100 / 100 100 ML @ 200 mls/hr IV.SIG Q12H ONI Rx#:[id number] fentaNYL 10 mcg/mL Premix Drip 300 / 300 2,500 mcg In 250 ml @ 50 MCG/HR 5 mls/hr IV.SIG TITRATE PRN Rx #:[id number] Oral 240 / 240 360 / 360 Output: Urine Amount (Catheter) 650 / 650 850 / 850 Indwelling Urethral Catheter 650 / 650 850 / 850 Wound Drainage 40 / 40 20 / 20 # 1 Posterior DAVY Drain 40 / 40 20 / 20 Other: Date of Last Bowel Movement 10/02/18 # Bowel Movements 0 # Incontinent Bowel Movements 0 Narrative: intubated awake, alert, communicate by writing minimal 1-2/5 movement RLE to command, slight withdrawal to pain LLE, moving UE well but limited due to clinical condition DAVY still 30cc - Urinary Catheter Management Indwelling Urethral Catheter Cath placed during this visit: no Reason for continuing: Acute urinary retention Assessment and Plan - Plan 38 M s/p T5-T11 laminectomies for decompression of spinal cord and evacuation of abscess by Dr. Manuel (10/02/18) paraplegia cont DAVY drain f/u MRI looks good from 10/03/18 PT, OT -- will need Rehab Transfer out of unit. Consider d/c huizar and switch to straight cath ID consult for abx mgt follow up cultures Patient has recently had a right knee replacement 08/30 in [place], [place]. Could this be the source? No history of IVDA.
[2018-10-04] MEDS: Chlorhexidine 0.12% Oral Kit 15 ML UDC OROPHARYNG SCH ×2 (11:00→21:31)
[2018-10-04] MEDS: Baclofen 10 MG Tablet PO SCH ×2 (14:05→18:31)
[2018-10-04] MEDS ORDERED: Vancomycin Consult Pharmacy 1 EACH OTHER SCH (15:45)
--- NOTE | 2018-10-04 16:05 | P.PNID ---
Subjective Remarks: Mr. Lawler is a 29-year-old male with past medical history significant for right knee TKR on 08/30/2018. He reportedly did ok and when asked he nodded no to any infection or discharge post surgery. His knee surgical scar did ok per his nodding. He is awake, responding to commands waiting for extubation. Patient presented at [facility] initially with a 5-day history of back and leg pain as well as urinary retention of 3 days duration. Patient was evaluated in the ED and a Marie catheter was placed and he was discharged. Of October 01, 2008 he developed paraplegia and presented again to [facility]. An MRI could not be performed reportedly read/body habitus. He [place] [facility] [place]. Due to difficulty obtaining an MRI, patient required intubation. The MRI revealed T6- T11 epidural abscess with compression of the spinal cord. He underwent T5 to T11 laminectomy and epidural abscess evacuation 10/[address] Manuel [facility] neurosurgery. Intraoperative cultures were obtained. Patient had received rocephin and Vancomycin IV 10/02 at outside hospital at 8:30 am. He has been continued on Rocephin, vancomycin and Flagyl per neurosurgery. Orthopaedics evaluated his knee in OR and said it appeared to be normal post-op knee, no need to do arthrocentesis. He denied fever, chills, history of IV drug use. Reportedly prelim report on blood culture at outside hospital was [facility],fax of results has been requested by [facility] per their notes. ID consulted for evaluation and Mment of Gram positive bacteremia, Epidural abscess in a patient post surgery for Rt TKR. Overnight events reviewed No fever No rash No diarrhea extubated Talking. Able to move right foot toes, no movt at ankle level. Experiencing tingling in bilateral LE. Antibiotics: Ceftriaxone IV Flagyl Vanco IV Lines: Lines ok Past Medical History: reviewed Allergies/Adverse Reactions: Allergies ibuprofen Allergy (Verified 10/02/18 10:22) Anaphylaxis Iodine and Iodide Containing Produc Allergy (Verified 10/02/18 10:22) Anaphylaxis ketorolac Allergy (Verified 10/02/18 10:22) Anaphylaxis naproxen Allergy (Verified 10/02/18 10:22) Anaphylaxis Penicillins Allergy (Verified 10/02/18 10:22) Anaphylaxis Sulfa (Sulfonamide Antibiotics) Allergy (Verified 10/02/18 10:22) Anaphylaxis Objective Vital Signs 10/03/18 17:00 10/03/18 18:00 10/03/18 19:00 Temperature 98.4 F Pulse Rate 68 78 71 Respiratory Rate 19 14 21 Blood Pressure Pulse Oximetry 99 99 99 10/03/18 19:18 10/03/18 20:00 10/03/18 20:38 Temperature 98.4 F Pulse Rate 77 76 Respiratory Rate 18 19 Blood Pressure 121/62 128/61 Pulse Oximetry 99 99 96 10/03/18 21:00 10/03/18 22:00 10/03/18 23:00 Temperature Pulse Rate 83 82 79 Respiratory Rate 14 27 H 18 Blood Pressure 128/63 129/73 131/60 Pulse Oximetry 97 94 L 95 10/04/18 00:00 10/04/18 01:00 10/04/18 02:00 Temperature 97.5 F L Pulse Rate 85 83 75 Respiratory Rate 23 16 16 Blood Pressure 124/61 115/59 L 119/59 L Pulse Oximetry 95 93 L 95 10/04/18 03:00 10/04/18 04:00 10/04/18 05:00 Temperature 98.5 F Pulse Rate 78 76 80 Respiratory Rate 15 13 14 Blood Pressure 122/77 111/56 L 110/56 L Pulse Oximetry 93 L 94 L 95 10/04/18 06:00 10/04/18 07:00 10/04/18 08:00 Temperature Pulse Rate 78 80 79 Respiratory Rate 16 15 16 Blood Pressure 115/55 L 131/60 111/56 L Pulse Oximetry 93 L 92 L 92 L 10/04/18 09:00 10/04/18 10:00 10/04/18 10:49 Temperature Pulse Rate 84 90 87 Respiratory Rate 15 30 H Blood Pressure 117/60 116/58 L Pulse Oximetry 93 L 93 L Intake & Output 10/03/18 10/04/18 10/04/18 18:59 06:59 18:59 Intake Total 1850 / 1850 1976.5 / 1976.5 1617.5 / 1617.5 Output Total 690 / 690 870 / 870 Balance 1160 / 1160 1107.5 / 1107.5 1617.5 / 1617.5 Weight 145.9 kg Intake: IV 1610 / 1610 1617.5 / 1617.5 1617.5 / 1617.5 Diprivan 1000 mg/100 ml Inj 1, 210 / 210 000 mg In 100 ml @ 5 MCG/KG/MIN 4.082 mls/hr IV.CONT TITRATE PRN Rx#:[id number] NS Inj 1,000 ML @ 100 mls/hr IV 1000 / 1000 1000 / 1000 1000 / 1000 .CONT .Q10H ONI Rx#:[id number] Vancomycin Inj 1,750 MG In NS 517.5 / 517.5 517.5 / 517.5 Inj 500 ML @ 258.75 mls/hr IV. SIG Q12H ONI Rx#:[id number] Rocephin Inj 2,000 MG In NS Inj 100 / 100 100 / 100 100 / 100 100 ML @ 200 mls/hr IV.SIG Q12H [facility] Rx#:[id number] fentaNYL 10 mcg/mL Premix Drip 300 / 300 2,500 mcg In 250 ml @ 50 MCG/HR 5 mls/hr IV.SIG TITRATE PRN Rx #:[id number] Oral 240 / 240 360 / 360 Output: Urine Amount (Catheter) 650 / 650 850 / 850 Indwelling Urethral Catheter 650 / 650 850 / 850 Wound Drainage 40 / 40 20 20 # 1 Posterior DAVY Drain 40 Other: Date of Last Bowel Movement 10/02/18 # Bowel Movements 0 # Incontinent Bowel Movements 0 10/03/18 19:06 Abscess - Back Gram Stain - Final 10/03/18 19:06 Abscess - Back Wound Culture - Preliminary Staphylococcus aureus 10/03/18 19:05 Abscess - Back Gram Stain - Final 10/03/18 19:05 Abscess - Back Wound Culture - Preliminary Staphylococcus aureus 10/03/18 00:25 Blood - Peripheral Aerobic Blood Culture - Preliminary No growth in 1 day 10/03/18 00:25 Blood - Peripheral Anaerobic Blood Culture - Preliminary No growth in 1 day 10/03/18 00:20 Blood - Peripheral Aerobic Blood Culture - Preliminary No growth in 1 day 10/03/18 00:20 Blood - Peripheral Anaerobic Blood Culture - Preliminary No growth in 1 day 10/02/18 19:05 Abscess - Back Acid Fast Bacilli Smear - Final No acid fast bacilli seen 10/02/18 19:05 Abscess - Back Mycobacterial Culture - Pending 10/02/18 19:05 Abscess - Back Acid Fast Bacilli Smear - Final No acid fast bacilli seen 10/02/18 19:05 Abscess - Back Mycobacterial Culture - Pending 10/02/18 19:05 Abscess - Back Acid Fast Bacilli Smear - Final No acid fast bacilli seen 10/02/18 19:05 Abscess - Back Mycobacterial Culture - Pending 10/02/18 19:05 Abscess - Back Fungal Smear - Final No fungal elements seen 10/02/18 19:05 Abscess - Back Fungal Culture - Pending 10/02/18 19:05 Abscess - Back Fungal Smear - Final No fungal elements seen 10/02/18 19:05 Abscess - Back Fungal Culture - Pending 10/02/18 19:05 Abscess - Back Fungal Smear - Final No fungal elements seen 10/02/18 19:05 Abscess - Back Fungal Culture - Pending 10/03/18 19:06 Tissue - Back Gram Stain - Final 10/03/18 19:06 Tissue - Back Wound Culture - Pending Lab - Hematology Results 10/02/18 10/03/18 10/04/18 23:52 05:51 05:20 WBC 12.4 H 11.6 H 8.9 RBC 3.29 L 3.23 L 3.18 L Hgb 10.0 L 9.7 L 9.7 L Hct 29.6 L 30.0 L 28.8 L MCV 90.2 92.9 90.5 MCH 30.3 29.9 30.5 MCHC 33.6 32.2 33.7 RDW 15.3 14.9 15.3 Plt Count 206 220 211 MPV 9.0 9.3 9.5 Neut % (Auto) 87.8 H Lymph % (Auto) 7.2 L [place] % (Auto) 5.0 Eos % (Auto) 0.0 Baso % (Auto) 0.0 Neut # (Auto) 10.2 H Lymph # (Auto) 0.8 L [place] # (Auto) 0.6 Eos # (Auto) 0.0 Baso # (Auto) 0.0 WBC Differential . Differential Comment Auto diff final Lab - Chemistry Results 10/02/18 10/02/18 10/03/18 23:31 23:52 05:51 Sodium 142 143 Potassium 3.7 3.8 Chloride 111 H 111 H Carbon Dioxide 24.7 23.7 Anion Gap 6 8 BUN 11 12 Creatinine 0.57 L 0.56 L Estimated GFR Greater than 89 Greater than 89 POC Glucose 187 H Random Glucose 162 H 145 H Calcium 8.1 L 8.2 L Phosphorus 2.2 L Magnesium 1.9 Total Bilirubin 0.2 0.2 AST 17 15 ALT 35 32 Alkaline Phosphatase 122 H 116 Total Protein 7.1 7.2 Albumin 2.3 L 2.4 L 10/03/18 10/03/18 10/03/18 06:18 13:17 23:42 Sodium Potassium Chloride Carbon Dioxide Anion Gap BUN Creatinine Estimated GFR POC Glucose 153 H 125 H 111 H Random Glucose Calcium Phosphorus Magnesium Total Bilirubin AST ALT Alkaline Phosphatase Total Protein Albumin 10/04/18 10/04/18 05:14 05:20 Sodium 142 Potassium 3.3 L Chloride 110 H Carbon Dioxide 25.4 Anion Gap 7 BUN 12 Creatinine 0.54 L Estimated GFR Greater than 89 POC Glucose 115 H Random Glucose 97 Calcium 7.6 L Phosphorus Magnesium 1.8 Total Bilirubin 0.2 AST 54 H ALT 51 Alkaline Phosphatase 119 H Total Protein 7.0 Albumin 2.4 L Imaging: ITS Impressions Thoracic Spine X-Ray 10/02/18 00:00 CONCLUSION: AP view of the thoracolumbar spine was obtained for level localization. Knee X-Ray 10/03/18 00:00 CONCLUSION: 1. Soft tissue swelling without fracture. 2. Possible small joint effusion Thoracic Spine MRI 10/03/18 07:04 CONCLUSION: 1. Minimal T2 signal within the cord from T9 to T11 likely some edema from reexpansion of the cord. 2. Postsurgical changes with evacuation of the posterior epidural abscess/ hematoma. Lumbar Spine MRI 10/03/18 07:05 CONCLUSION: 1. Right-sided protrusion at L1-2 with minimal extruded component. No canal stenosis. 2. Facet arthropathy lower lumbar spine. Chest X-Ray 10/04/18 06:00 CONCLUSION: Slight interval worsening in aeration Physical Exam: GENERAL: Awake, follows commands. SKIN: Cool and dry, no generalized rash HEAD: Atraumatic. Normocephalic. No temporal or scalp tenderness. EYES: Pupils equal round and reactive. Scleral icterus. No injection or drainage. No petechia ENT: NAD NECK: Trachea midline. Supple, nontender, no meningeal signs. CARDIOVASCULAR: HS audible. RESPIRATORY: Air entry equal bilaterally. Clear to auscultation bilaterally. GASTROINTESTINAL: Abdomen soft,NT MUSCULOSKELETAL: Extremities without clubbing, cyanosis. Rt Knee TKR site with no e.o infection. Drains visible with sanguinous drainage. NEUROLOGICAL: moves UE, opens eyes follows simple commands, nods yes and no to questions. Psych cooperative IV line sites ok. Assessment and Plan - Plan Thoracic epidural abscess multi level multi loculated. Recent Right TKR 08/30/2018 Paraplegia with retention of urine Morbid Obesity with BMI: 42.8 kg/m2 Recs: DC Ceftriaxone IV Start Ancef IV (patient reports throat swelling with Penicillin in his teenage years but has tolerated Ceftriaxone since admission) Continue Vanco IV (target 15-20 for epidural abscess) pharmacy to manage dw pharmacy reorder for vanco with targets. Follow [facility] cultures for susceptibilities to adjust antibiotics. Follow cultures at [facility] blood and intra op cultures. follow clinical course. Will need long course of IV antibiotics but not ready for PICC. PICC insertion only after ID clearance. dw reviewed Neurosurgery notes. I will be OOT from 10/05/2018 to 10/07/2018, other ID MDs to cover for me.
[2018-10-04] MEDS ORDERED: ceFAZolin Inj 2,000 MG in Sodium Chlor 0.9% Inj 80 ML IV.SIG SCH (17:00)
[2018-10-04] MEDS ORDERED: Baclofen 10 MG Tablet PO PRN (18:00)
[2018-10-04] MEDS ORDERED: ceFAZolin 2 GM Premix Inj 2 GM/50 ML PIGGYBACK IV.SIG SCH (20:00)
[2018-10-04] MEDS: Vancomycin Inj 2,000 MG in Sodium Chlor 0.9% Inj 500 ML IV.SIG SCH (22:40)
[2018-10-05] MEDS: Insulin NovoLOG Aspart Correctional Sugar Inj SQ SCH ×4 (00:28→17:45)
[2018-10-05] MEDS: Oral Hygiene Kit OROPHARYNG SCH ×4 (00:28→18:32)
[2018-10-05] MEDS: Sod Chloride 0.9% Inj 1,000 ML IV.CONT SCH ×3 (01:02→17:46)
[2018-10-05] MEDS: ceFAZolin 2 GM Premix Inj 2 GM/50 ML PIGGYBACK IV.SIG SCH ×4 (01:04→22:05)
[2018-10-05] MEDS: Chlorhexidine Gluconate 2% 1 Pack (2 Cloths) TOPICAL SCH (03:14)
[2018-10-05] MEDS: Morphine Inj 4 MG/ML Vial IV.PUSH PRN ×6 (04:46→21:56)
[2018-10-05] MEDS: Phenytoin Sodium 100 MG Capsule NG/OG SCH ×3 (07:37→22:02)
[2018-10-05] MEDS: Famotidine PF Inj 20 MG/2 ML Vial IV.PUSH SCH ×2 (08:32→21:55)
[2018-10-05] MEDS: Senna/Docusate Sodium 8.6/50 MG Tablet PO SCH ×2 (08:32→21:56)
--- NOTE | 2018-10-05 10:43 | P.PNNS ---
Subjective Interval history: pt reports moderate to severe pain in his legs, tightness, will twitch and jump on its own. pt was started on baclofen 10 mg tid yesterday. Physical Exam Vital signs: Vital Signs 10/04/18 10:49 10/04/18 11:00 10/04/18 12:00 Temperature Pulse Rate 87 86 82 Respiratory Rate 11 L 17 Blood Pressure 116/58 L 115/58 L Pulse Oximetry 94 L 93 L 10/04/18 13:00 10/04/18 14:00 10/04/18 15:00 Temperature Pulse Rate 81 80 86 Respiratory Rate 16 17 18 Blood Pressure 125/58 L 124/61 125/58 L Pulse Oximetry 95 95 95 10/04/18 16:00 10/04/18 17:00 10/04/18 18:00 Temperature Pulse Rate 90 92 H 86 Respiratory Rate 18 18 14 Blood Pressure 125/60 131/60 129/61 Pulse Oximetry 94 L 94 L 92 L 10/04/18 19:00 10/04/18 20:00 10/05/18 00:00 Temperature 99.7 F H 99.6 F Pulse Rate 84 90 90 Respiratory Rate 17 20 18 Blood Pressure 133/60 155/81 H 150/79 H Pulse Oximetry 92 L 94 L 95 10/05/18 04:00 10/05/18 08:00 Temperature 98.8 F 99.0 F Pulse Rate 89 74 Respiratory Rate 18 20 Blood Pressure 148/89 H 159/64 H Pulse Oximetry 95 99 Intake & Output 10/04/18 10/05/18 10/05/18 18:59 06:59 18:59 Intake Total 1617.5 / 1617.5 570 / 570 1000 / 1000 Output Total 1005 / 1005 2240 / 2240 Balance 612.5 / 612.5 -1670 / -1670 1000 / 1000 Intake: IV 1617.5 / 1617.5 570 / 570 1000 / 1000 NS Inj 1,000 ML @ 100 mls/hr IV 1000 / 1000 1000 / 1000 .CONT .Q10H ONI Rx#:[id number] Vancomycin Inj 2,000 MG In NS 517.5 / 517.5 520 / 520 Inj 500 ML @ 250 mls/hr IV.SIG Q12H [facility] Rx#:[id number] Ancef 2 GM Premix Inj 2 gm In 50 / 50 50 ml @ 100 mls/hr IV.SIG Q8H ONI Rx#:[id number] Rocephin Inj 2,000 MG In NS Inj 100 / 100 100 ML @ 200 mls/hr IV.SIG Q12H [facility] Rx#:[id number] Output: Urine 2200 / 2200 Urine Amount (Catheter) 1000 / 1000 Indwelling Urethral Catheter 1000 / 1000 Wound Drainage 40 / 40 # 1 Posterior DAVY Drain 40 40 Other: Date of Last Bowel Movement 10/02/18 Narrative: Awake, alert grimacing when legs manipulated increased tonicity LE's positive babinski 1-2 movement RLE, minimal withdraw LLE reports intact sensory to touch in LE - Urinary Catheter Management Indwelling Urethral Catheter Cath placed during this visit: yes Reason for continuing: Acute urinary retention Insertion date: 10/02/18 Insertion time: 18:00 Assessment and Plan - Plan 38 M s/p T5-T11 laminectomies for decompression of spinal cord and evacuation of abscess by Dr. Manuel (10/02/18) paraplegia cont DAVY drain, keep longer due to infection, discontinue Wednesday f/u MRI looks good from 10/03/18 PT, OT -- will need Rehab Consider d/c huizar and switch to straight cath increase Baclofen to 20 tid for LE's spasms start Neurontin 300 tid for leg pain ID following for antibiotic mgt Patient has recently had a right knee replacement 08/30 in [place], [place]. Could this be the source? No history of IVDA.
[2018-10-05] MEDS: Chlorhexidine 0.12% Oral Kit 15 ML UDC OROPHARYNG SCH ×2 (10:59→21:57)
[2018-10-05] MEDS: Vancomycin Inj 2,000 MG in Sodium Chlor 0.9% Inj 500 ML IV.SIG SCH (11:05)
[2018-10-05] MEDS: Gabapentin 300 MG Capsule PO SCH ×2 (13:05→17:29)
[2018-10-05] MEDS: Baclofen 10 MG Tablet PO SCH ×2 (13:05→17:29)
--- NOTE | 2018-10-05 15:27 | P.PNIM ---
Subjective Interval history: Hypokalemia present. Patient still cannot move lower extremities well. Ambulation is not possible yet. Physical Exam Vital signs: Vital Signs 10/04/18 16:00 10/04/18 17:00 10/04/18 18:00 Temperature Pulse Rate 90 92 H 86 Respiratory Rate 18 18 14 Blood Pressure 125/60 131/60 129/61 Pulse Oximetry 94 L 94 L 92 L 10/04/18 19:00 10/04/18 20:00 10/05/18 00:00 Temperature 99.7 F H 99.6 F Pulse Rate 84 90 90 Respiratory Rate 17 20 18 Blood Pressure 133/60 155/81 H 150/79 H Pulse Oximetry 92 L 94 L 95 10/05/18 04:00 10/05/18 08:00 10/05/18 12:00 Temperature 98.8 F 99.0 F 98.4 F Pulse Rate 89 74 74 Respiratory Rate 18 20 20 Blood Pressure 148/89 H 159/64 H 151/67 H Pulse Oximetry 95 99 20 L Intake & Output 10/04/18 10/05/18 10/05/18 18:59 06:59 18:59 Intake Total 1617.5 / 1617.5 570 / 570 1050 / 1050 Output Total 1005 / 1005 2240 / 2240 Balance 612.5 / 612.5 -1670 / -1670 1050 / 1050 Intake: IV 1617.5 / 1617.5 570 / 570 1050 / 1050 NS Inj 1,000 ML @ 100 mls/hr IV 1000 / 1000 1000 / 1000 .CONT .Q10H ONI Rx#:[id number] Vancomycin Inj 2,000 MG In NS 517.5 / 517.5 520 / 520 Inj 500 ML @ 250 mls/hr IV.SIG Q12H [facility]I Rx#:[id number] Ancef 2 GM Premix Inj 2 gm In 50 / 50 50 / 50 50 ml @ 100 mls/hr IV.SIG Q8H ONI Rx#:[id number] Rocephin Inj 2,000 MG In NS Inj 100 / 100 100 ML @ 200 mls/hr IV.SIG Q12H ONI Rx#:[id number] Output: Urine 2200 / 2200 Urine Amount (Catheter) 1000 / 1000 Indwelling Urethral Catheter 1000 / 1000 Wound Drainage 40 / 40 # 1 Posterior DAVY Drain 5 / 5 40 / 40 Other: Date of Last Bowel Movement 10/02/18 Narrative: GENERAL: NAD, A&Ox3 HEAD: Normocephalic. NECK: Supple, trachea midline. No lymphadenopathy. EYES: No scleral icterus. No injection or drainage. CARDIOVASCULAR: Regular rate and rhythm without murmurs, gallops, or rubs. RESPIRATORY: Breath sounds equal bilaterally. No accessory muscle use. GASTROINTESTINAL: Abdomen soft, non-tender, nondistended. MUSCULOSKELETAL: No cyanosis, or edema. Pain with movement of legs. No strength in lower extremities. SKIN: Warm and dry. NEURO: No focal neurological deficits. - Urinary Catheter Management Indwelling Urethral Catheter Cath placed during this visit: yes Reason for continuing: Acute urinary retention Insertion date: 10/02/18 Insertion time: 18:00 Results - Labs CBC & Chem 7: 10/04/18 05:20 10/04/18 05:20 Laboratory Results - last 24 hr 10/04/18 10/05/18 10/05/18 18:16 04:50 11:37 POC Glucose 138 H 131 H 141 H Microbiology 10/03/18 00:25 Blood - Peripheral Aerobic Blood Culture - Preliminary No growth in 2 days 10/03/18 00:25 Blood - Peripheral Anaerobic Blood Culture - Preliminary No growth in 2 days 10/03/18 00:20 Blood - Peripheral Aerobic Blood Culture - Preliminary No growth in 2 days 10/03/18 00:20 Blood - Peripheral Anaerobic Blood Culture - Preliminary No growth in 2 days 10/03/18 19:06 Tissue - Back Gram Stain - Final 10/03/18 19:06 Tissue - Back Wound Culture - Preliminary No growth in 48 hours 10/03/18 19:06 Abscess - Back Gram Stain - Final 10/03/18 19:06 Abscess - Back Wound Culture - Final Staphylococcus aureus 10/03/18 19:05 Abscess - Back Gram Stain - Final 10/03/18 19:05 Abscess - Back Wound Culture - Final Staphylococcus aureus Assessment and Plan - Plan 38 year old male admitted with epidural abscess Epidural abscess Flaccid paraplegia s/p T5-T11 laminectomy s/p T5-T11 laminectomy and abscess evacuation 10/[address] Manuel Continue following neurologic status. DAVY drain in place. Rocephin, vancomycin, Flagyl ID Following follow cultures Seizure disorder Continue Dilantin. Acute respiratory failure Resolved Urinary retention Continue Marie catheter Consider void trial when patient's neurological status improves Diabetes mellitus type 2 Follow blood sugars Insulin sliding scale Diabetic diet DVT prophylaxis SCDs
--- NOTE | 2018-10-05 17:20 | ECHRPT ---
Indication: SEPSIS ENDOCARDITIS CONCLUSIONS Mildly dilated left ventricle. Wall thickness is normal. The left ventricular systolic function is normal with an estimated ejection fraction in the range of 55-60%. There is trace tricuspid valve regurgitation. The estimated pulmonary arterial pressure is 31 mmHg. BP: / HR: Rhythm: MEASUREMENTS (Male / Female) Normal Values Technical Quality: 2D ECHO LV Diastolic Diameter PLAX 6.3 cm 4.2 - 5.9 / 3.9 - 5.3 cm LV Systolic Diameter PLAX 4.8 cm IVS Diastolic Thickness 0.9 cm 0.6 - 1.0 / 0.6 - 0.9 cm LVPW Diastolic Thickness 1.0 cm 0.6 - 1.0 / 0.6 - 0.9 cm LV Relative Wall Thickness 0.3 RV Internal Dim ED PLAX 2.4 cm DOPPLER Mitral E Point Velocity 90.1 cm/s Mitral A Point Velocity 59.2 cm/s Mitral E to A Ratio 1.5 TR Peak Velocity 229.7 cm/s TR Peak Gradient 21.1 mmHg Right Atrial Pressure 10.0 mmHg Pulmonary Artery Systolic Pressu 31.1 mmHg Right Ventricular Systolic Press 31.1 mmHg FINDINGS LEFT VENTRICLE Mildly dilated left ventricle. Wall thickness is normal. The left ventricular systolic function is normal with an estimated ejection fraction in the range of 55-60%. RIGHT VENTRICLE Normal right ventricular size and systolic function. LEFT ATRIUM The left atrial size is normal. RIGHT ATRIUM The right atrial size is normal. ATRIAL SEPTUM Normal atrial septal thickness without atrial level shunting by limited color doppler interrogation. AORTA The aortic root and proximal ascending aorta are normal in size on limited imaging. MITRAL VALVE Structurally normal mitral valve. No mitral valve stenosis or regurgitation. AORTIC VALVE Trileaflet aortic valve. No aortic valve stenosis or regurgitation. TRICUSPID VALVE There is trace tricuspid valve regurgitation. The estimated pulmonary arterial pressure is 31 mmHg. PULMONARY VALVE No pulmonary valve regurgitation or stenosis. VESSELS The inferior vena cava is normal in size. PERICARDIUM No pericardial effusion. Sergo Briggs MD, FACC (Electronically Signed) Final Date:05 October 2018 17:19
[2018-10-05] MEDS ORDERED: Pharmacy Ordered Lab Info OTHER ONE (20:45)
[2018-10-06] MEDS: Insulin NovoLOG Aspart Correctional Sugar Inj SQ SCH ×4 (00:04→18:00)
[2018-10-06] MEDS: Oral Hygiene Kit OROPHARYNG SCH ×4 (00:04→17:20)
[2018-10-06] MEDS: Morphine Inj 4 MG/ML Vial IV.PUSH PRN ×6 (02:31→21:04)
[2018-10-06] MEDS: Sod Chloride 0.9% Inj 1,000 ML IV.CONT SCH ×3 (02:33→23:05)
[2018-10-06] MEDS: Chlorhexidine Gluconate 2% 1 Pack (2 Cloths) TOPICAL SCH (04:30)
[2018-10-06] MEDS: Phenytoin Sodium 100 MG Capsule NG/OG SCH ×2 (06:25→15:39)
[2018-10-06] MEDS: ceFAZolin 2 GM Premix Inj 2 GM/50 ML PIGGYBACK IV.SIG SCH ×2 (06:26→15:40)
[2018-10-06 07:55] LABS: Baso % (Auto) 0.6 % (0.0-2.0); Eos # (Auto) 0.2 th/mm3 (0.0-0.4); Eos % (Auto) 1.8 % (0.0-4.0); Hematocrit 29.8 % (39.0-51.0); Hemoglobin 10.3 gm/dL (13.0-17.0); Lymph # (Auto) 1.4 th/mm3 (1.0-4.8); Lymph % (Auto) 16.3 % (9.0-44.0); Mean Corpuscular HGB Conc 34.4 % (32.0-36.0); Mean Corpuscular Hemoglobin 31.2 pg (27.0-34.0); Mean Corpuscular Volume 90.6 fL (80.0-100.0); Mean Platelet Volume 9.5 fL (7.0-11.0); Mono # (Auto) 0.6 th/mm3 (0.0-0.9); Mono % (Auto) 6.7 % (0.0-8.0); Neut # (Auto) 6.3 th/mm3 (1.8-7.7); Neut % (Auto) 74.6 % (16.0-70.0); Platelet Count 246 th/mm3 (150-450); Red Blood Count 3.29 mil/mm3 (4.50-5.90); Red Cell Distribution Width 15.2 % (11.6-17.2); White Blood Count 8.5 th/mm3 (4.0-11.0)
[2018-10-06 08:25] LABS: Alanine Aminotransferase 73 U/L (12-78); Albumin 2.4 g/dL (3.4-5.0); Alkaline Phosphatase 125 U/L (45-117); Anion Gap 11 meq/L (5-15); Aspartate Aminotransferase 46 U/L (15-37); Blood Urea Nitrogen 6 mg/dL (7-18); Calcium 8.4 mg/dL (8.5-10.1); Carbon Dioxide 22.6 meq/L (21.0-32.0); Chloride 107 meq/L (98-107); Glomerular Filtration Rate Greater Than 89 mL/min (>89); Glucose,Random 144 mg/dL (74-106); Sodium 141 meq/L (136-145); Total Protein 7.6 g/dL (6.4-8.2)
[2018-10-06] MEDS: Famotidine PF Inj 20 MG/2 ML Vial IV.PUSH SCH ×2 (09:32→21:02)
[2018-10-06] MEDS: Senna/Docusate Sodium 8.6/50 MG Tablet PO SCH ×2 (09:32→21:02)
[2018-10-06] MEDS: Baclofen 10 MG Tablet PO SCH ×3 (09:32→17:54)
[2018-10-06] MEDS: Gabapentin 300 MG Capsule PO SCH ×3 (09:32→17:54)
[2018-10-06] MEDS: Chlorhexidine 0.12% Oral Kit 15 ML UDC OROPHARYNG SCH ×2 (12:24→21:03)
--- NOTE | 2018-10-06 14:34 | P.PNIM ---
Subjective Interval history: Potassium low this morning. No nausea. Slight movements possible in left foot , otherwise immobile below waist. Physical Exam Vital signs: Vital Signs 10/05/18 16:00 10/05/18 20:00 10/06/18 00:00 Temperature 99.0 F 99.4 F 99.7 F H Pulse Rate 76 86 83 Respiratory Rate 20 17 19 Blood Pressure 139/75 155/72 H 143/68 H Pulse Oximetry 100 95 93 L 10/06/18 04:00 10/06/18 08:00 10/06/18 12:00 Temperature 98.3 F 99.4 F 99.6 F Pulse Rate 83 84 78 Respiratory Rate 16 18 18 Blood Pressure 138/64 115/62 130/72 Pulse Oximetry 97 95 96 Intake & Output 10/05/18 10/06/18 10/06/18 18:59 06:59 18:59 Intake Total 3420 / 3420 1100 / 1100 Output Total 2355 / 2355 500 / 500 1820 / 1820 Balance 1065 / 1065 600 / 600 -1820 / -1820 Weight 148.9 kg Intake: IV 2100 / 2100 1100 / 1100 NS Inj 1,000 ML @ 100 mls/hr IV 2000 / 2000 1000 / 1000 .CONT .Q10H ONI Rx#:[id number] Ancef 2 GM Premix Inj 2 gm In 100 / 100 100 / 100 50 ml @ 100 mls/hr IV.SIG Q8H ONI Rx#:[id number] Oral 1320 / 1320 Output: Urine 500 / 500 500 / 500 Urine Amount (Catheter) 1849 / 1849 1800 / 1800 Indwelling Urethral Catheter 1849 / 1800 Wound Drainage # 1 Posterior DAVY Drain Other: # Incontinent Voids 3 Date of Last Bowel Movement 10/02/18 Narrative: GENERAL: NAD, A&Ox3 HEAD: Normocephalic. NECK: Supple, trachea midline. No lymphadenopathy. EYES: No scleral icterus. No injection or drainage. CARDIOVASCULAR: Regular rate and rhythm without murmurs, gallops, or rubs. RESPIRATORY: Breath sounds equal bilaterally. No accessory muscle use. GASTROINTESTINAL: Abdomen soft, non-tender, nondistended. MUSCULOSKELETAL: No cyanosis, or edema. Pain with movement of legs. No strength in lower extremities. SKIN: Warm and dry. NEURO: No focal neurological deficits. - Urinary Catheter Management Indwelling Urethral Catheter Cath placed during this visit: yes Reason for continuing: Acute urinary retention Insertion date: 10/02/18 Insertion time: 18:00 Results - Labs CBC & Chem 7: 10/06/18 07:04 10/06/18 07:04 Laboratory Results - last 24 hr 10/05/18 10/06/18 10/06/18 17:38 00:04 06:34 WBC RBC Hgb Hct MCV MCH MCHC RDW Plt Count MPV Neut % (Auto) Lymph % (Auto) [place] % (Auto) Eos % (Auto) Baso % (Auto) Neut # (Auto) Lymph # (Auto) [place] # (Auto) Eos # (Auto) Baso # (Auto) WBC Differential Differential Comment Sodium Potassium Chloride Carbon Dioxide Anion Gap BUN Creatinine Estimated GFR POC Glucose 152 H 146 H 133 H Random Glucose Calcium Total Bilirubin AST ALT Alkaline Phosphatase Total Protein Albumin 10/06/18 10/06/18 10/06/18 07:04 07:04 12:33 WBC 8.5 RBC 3.29 L Hgb 10.3 L Hct 29.8 L MCV 90.6 MCH 31.2 MCHC 34.4 RDW 15.2 Plt Count 246 MPV 9.5 Neut % (Auto) 74.6 H Lymph % (Auto) 16.3 [place] % (Auto) 6.7 Eos % (Auto) 1.8 Baso % (Auto) 0.6 Neut # (Auto) 6.3 Lymph # (Auto) 1.4 [place] # (Auto) 0.6 Eos # (Auto) 0.2 Baso # (Auto) 0.0 WBC Differential . Differential Comment Auto diff final Sodium 141 Potassium 3.0 L Chloride 107 Carbon Dioxide 22.6 Anion Gap 11 BUN 6 L Creatinine 0.60 Estimated GFR Greater than 89 POC Glucose 134 H Random Glucose 144 H Calcium 8.4 L Total Bilirubin 0.3 AST 46 H ALT 73 Alkaline Phosphatase 125 H Total Protein 7.6 D Albumin 2.4 L Microbiology 10/03/18 00:20 Blood - Peripheral Aerobic Blood Culture - Preliminary Staphylococcus aureus 10/03/18 00:20 Blood - Peripheral Anaerobic Blood Culture - Preliminary No growth in 3 days 10/03/18 00:25 Blood - Peripheral Aerobic Blood Culture - Preliminary No growth in 3 days 10/03/18 00:25 Blood - Peripheral Anaerobic Blood Culture - Preliminary No growth in 3 days 10/03/18 19:06 Tissue - Back Gram Stain - Final 10/03/18 19:06 Tissue - Back Wound Culture - Final No growth in 72 hours (aerobically and anaerobically ) Assessment and Plan - Plan 38 year old male admitted with epidural abscess Hypokalemia Replace potassium Monitor potassium levels Epidural abscess Flaccid paraplegia s/p T5-T11 laminectomy s/p T5-T11 laminectomy and abscess evacuation 10/[address] Manuel Continue following neurologic status. DAVY drain in place. Rocephin, vancomycin, Flagyl ID Following follow cultures Seizure disorder Continue Dilantin. Acute respiratory failure Resolved Urinary retention Continue Marie catheter Consider void trial when patient's neurological status improves Diabetes mellitus type 2 Follow blood sugars Insulin sliding scale Diabetic diet DVT prophylaxis SCDs
--- NOTE | 2018-10-06 16:53 | P.PNID ---
Subjective Remarks: Mr. Frederick is a 29-year-old male with past medical history significant for right knee TKR on 08/30/2018. 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 He underwent T5 to T11 laminectomy and epidural abscess evacuation 10/[address] Manuel [facility] neurosurgery. Intraoperative cultures were + For MSSA MSSA in 12/02 blood clx Initially on vanco, Rocephion, flagyl Now in Cefazolin H/o high grade PCN allergy bu tolerates cefazoline ok He denied fever, chills, history of IV drug use. Overnight events reviewed No fever No rash No diarrhea Unable to move his legs Antibiotics: cefazolin Lines: Lines ok Past Medical History: reviewed Allergies/Adverse Reactions: Allergies ibuprofen Allergy (Severe, Verified 12/22/18 23:27) Anaphylaxis ketorolac Allergy (Verified 12/22/18 23:27) Anaphylaxis naproxen Allergy (Verified 12/22/18 23:27) Anaphylaxis Penicillins Allergy (Verified 12/22/18 23:27) Anaphylaxis Sulfa (Sulfonamide Antibiotics) Allergy (Verified 12/22/18 23:27) Anaphylaxis Iodinated Contrast- Oral and IV Dye [Contrast] Adverse Reaction (Verified 23:27) Anaphylaxis not allergic to topical iodine per patient Objective Vital Signs 10/05/18 20:00 10/06/18 00:00 10/06/18 04:00 Temperature 99.4 F 99.7 F H 98.3 F Pulse Rate 86 83 83 Respiratory Rate 17 19 16 Blood Pressure 155/72 H 143/68 H 138/64 Pulse Oximetry 95 93 L 97 10/06/18 08:00 10/06/18 12:00 Temperature 99.4 F 99.6 F Pulse Rate 84 78 Respiratory Rate 18 18 Blood Pressure 115/62 130/72 Pulse Oximetry 95 96 Intake & Output 10/05/18 10/06/18 10/06/18 18:59 06:59 18:59 Intake Total 3420 / 3420 1100 / 1100 Output Total 2355 / 2355 500 / 500 1820 / 1820 Balance 1065 / 1065 600 / 600 -1820 / -1820 Weight 148.9 kg Intake: IV 2100 / 2100 1100 / 1100 NS Inj 1,000 ML @ 100 mls/hr IV 2000 / 2000 1000 / 1000 .CONT .[facility] Rx#:[id number] Ancef 2 GM Premix Inj 2 gm In 100 / 100 100 / 100 50 ml @ 100 mls/hr IV.SIG Q8H [facility] Rx#:[id number] Oral 1320 / 1320 Output: Urine 500 / 500 500 / 500 Urine Amount (Catheter) 1849 1800 / 1800 Indwelling Urethral Catheter 1849 / 1799 Wound Drainage # 1 Posterior DAVY Drain Other: # Incontinent Voids 3 Date of Last Bowel Movement 10/02/18 10/03/18 00:20 Blood - Peripheral Aerobic Blood Culture - Preliminary Staphylococcus aureus 10/03/18 00:20 Blood - Peripheral Anaerobic Blood Culture - Preliminary No growth in 3 days 10/03/18 00:25 Blood - Peripheral Aerobic Blood Culture - Preliminary No growth in 3 days 10/03/18 00:25 Blood - Peripheral Anaerobic Blood Culture - Preliminary No growth in 3 days 10/03/18 19:06 Tissue - Back Gram Stain - Final 10/03/18 19:06 Tissue - Back Wound Culture - Final No growth in 72 hours (aerobically and anaerobically ) 10/03/18 19:06 Abscess - Back Gram Stain - Final 10/03/18 19:06 Abscess - Back Wound Culture - Final Staphylococcus aureus 10/03/18 19:05 Abscess - Back Gram Stain - Final 10/03/18 19:05 Abscess - Back Wound Culture - Final Staphylococcus aureus 10/02/18 19:05 Abscess - Back Acid Fast Bacilli Smear - Final No acid fast bacilli seen 10/02/18 19:05 Abscess - Back Mycobacterial Culture - Pending 10/02/18 19:05 Abscess - Back Acid Fast Bacilli Smear - Final No acid fast bacilli seen 10/02/18 19:05 Abscess - Back Mycobacterial Culture - Pending 10/02/18 19:05 Abscess - Back Acid Fast Bacilli Smear - Final No acid fast bacilli seen 10/02/18 19:05 Abscess - Back Mycobacterial Culture - Pending Lab - Hematology Results 10/06/18 07:04 WBC 8.5 RBC 3.29 L Hgb 10.3 L Hct 29.8 L MCV 90.6 MCH 31.2 MCHC 34.4 RDW 15.2 Plt Count 246 MPV 9.5 Neut % (Auto) 74.6 H Lymph % (Auto) 16.3 [place] % (Auto) 6.7 Eos % (Auto) 1.8 Baso % (Auto) 0.6 Neut # (Auto) 6.3 Lymph # (Auto) 1.4 [place] # (Auto) 0.6 Eos # (Auto) 0.2 Baso # (Auto) 0.0 WBC Differential . Differential Comment Auto diff final Lab - Chemistry Results 10/04/18 10/05/18 10/05/18 18:16 04:50 11:37 Sodium Potassium Chloride Carbon Dioxide Anion Gap BUN Creatinine Estimated GFR POC Glucose 138 H 131 H 141 H Random Glucose Calcium Total Bilirubin AST ALT Alkaline Phosphatase Total Protein Albumin 10/05/18 10/06/18 10/06/18 17:38 00:04 06:34 Sodium Potassium Chloride Carbon Dioxide Anion Gap BUN Creatinine Estimated GFR POC Glucose 152 H 146 H 133 H Random Glucose Calcium Total Bilirubin AST ALT Alkaline Phosphatase Total Protein Albumin 10/06/18 10/06/18 07:04 12:33 Sodium 141 Potassium 3.0 L Chloride 107 Carbon Dioxide 22.6 Anion Gap 11 BUN 6 L Creatinine 0.60 Estimated GFR Greater than 89 POC Glucose 134 H Random Glucose 144 H Calcium 8.4 L Total Bilirubin 0.3 AST 46 H ALT 73 Alkaline Phosphatase 125 H Total Protein 7.6 D Albumin 2.4 L Imaging: ITS Impressions Thoracic Spine X-Ray 10/02/18 00:00 CONCLUSION: AP view of the thoracolumbar spine was obtained for level localization. Knee X-Ray 10/03/18 00:00 CONCLUSION: 1. Soft tissue swelling without fracture. 2. Possible small joint effusion Thoracic Spine MRI 10/03/18 07:04 CONCLUSION: 1. Minimal T2 signal within the cord from T9 to T11 likely some edema from reexpansion of the cord. 2. Postsurgical changes with evacuation of the posterior epidural abscess/ hematoma. Lumbar Spine MRI 10/03/18 07:05 CONCLUSION: 1. Right-sided protrusion at L1-2 with minimal extruded component. No canal stenosis. 2. Facet arthropathy lower lumbar spine. Chest X-Ray 10/04/18 06:00 CONCLUSION: Slight interval worsening in aeration Physical Exam: GENERAL: Awake, follows commands. SKIN: Cool and dry, no generalized rash HEAD: Atraumatic. Normocephalic. No temporal or scalp tenderness. EYES: Pupils equal round and reactive. Scleral icterus. No injection or drainage. No petechia ENT: NAD NECK: Trachea midline. Supple, nontender, no meningeal signs. CARDIOVASCULAR: RRR. no murmurs RESPIRATORY: Air entry equal bilaterally. Clear to auscultation bilaterally. GASTROINTESTINAL: Abdomen soft,NT MUSCULOSKELETAL: Extremities without clubbing, cyanosis. Rt Knee TKR site with no e.o infection. BACK: dressing intact over T spine Drain in plaCE with sanguinous drainage. NEUROLOGICAL: moves UE 5/5; speech OK BLE 0/5 Psych cooperative IV line sites ok. Assessment and Plan - Plan Thoracic epidural abscess multi level multi loculated. Recent Right TKR 08/30/2018 Paraplegia with retention of urine Morbid Obesity with BMI: 42.8 kg/m2 Recs: cont Ancef IV Follow [place] hosp [facility] cultures for susceptibilities to adjust antibiotics. Follow cultures at [place] blood and intra op cultures. follow clinical course. sudheer Ramos
[2018-10-07] MEDS: Phenytoin Sodium 100 MG Capsule NG/OG SCH ×3 (00:36→16:08)
[2018-10-07] MEDS: Morphine Inj 4 MG/ML Vial IV.PUSH PRN ×7 (00:36→20:56)
[2018-10-07] MEDS: ceFAZolin 2 GM Premix Inj 2 GM/50 ML PIGGYBACK IV.SIG SCH ×4 (00:36→22:15)
[2018-10-07] MEDS: Insulin NovoLOG Aspart Correctional Sugar Inj SQ SCH ×4 (00:40→18:00)
[2018-10-07] MEDS: Oral Hygiene Kit OROPHARYNG SCH ×4 (04:25→17:34)
[2018-10-07] MEDS: Chlorhexidine Gluconate 2% 1 Pack (2 Cloths) TOPICAL SCH (04:26)
[2018-10-07 07:52] LABS: Baso # (Auto) 0.1 th/mm3 (0.0-0.2); Baso % (Auto) 0.6 % (0.0-2.0); Eos # (Auto) 0.3 th/mm3 (0.0-0.4); Eos % (Auto) 3.4 % (0.0-4.0); Hematocrit 29.4 % (39.0-51.0); Lymph # (Auto) 1.5 th/mm3 (1.0-4.8); Lymph % (Auto) 18.6 % (9.0-44.0); Mean Corpuscular HGB Conc 33.9 % (32.0-36.0); Mean Corpuscular Hemoglobin 30.7 pg (27.0-34.0); Mean Corpuscular Volume 90.5 fL (80.0-100.0); Mean Platelet Volume 9.8 fL (7.0-11.0); Mono # (Auto) 0.5 th/mm3 (0.0-0.9); Mono % (Auto) 6.6 % (0.0-8.0); Neut # (Auto) 5.7 th/mm3 (1.8-7.7); Neut % (Auto) 70.8 % (16.0-70.0); Platelet Count 229 th/mm3 (150-450); Red Blood Count 3.25 mil/mm3 (4.50-5.90); Red Cell Distribution Width 15.3 % (11.6-17.2); White Blood Count 8.1 th/mm3 (4.0-11.0)
[2018-10-07 08:01] LABS: Albumin 2.3 g/dL (3.4-5.0); Anion Gap 10 meq/L (5-15); Aspartate Aminotransferase 87 U/L (15-37); Blood Urea Nitrogen 6 mg/dL (7-18); Calcium 8.3 mg/dL (8.5-10.1); Carbon Dioxide 24.1 meq/L (21.0-32.0); Chloride 108 meq/L (98-107); Glomerular Filtration Rate Greater Than 89 mL/min (>89); Glucose,Random 120 mg/dL (74-106); Sodium 142 meq/L (136-145)
[2018-10-07 08:02] LABS: Alanine Aminotransferase 116 U/L (12-78); Alkaline Phosphatase 114 U/L (45-117); Potassium 3.6 meq/L (3.5-5.1); Total Protein 7.1 g/dL (6.4-8.2)
[2018-10-07] MEDS: Gabapentin 300 MG Capsule PO SCH ×3 (08:54→17:32)
[2018-10-07] MEDS: Famotidine PF Inj 20 MG/2 ML Vial IV.PUSH SCH ×2 (08:54→20:56)
[2018-10-07] MEDS: Baclofen 10 MG Tablet PO SCH ×3 (08:54→17:32)
[2018-10-07] MEDS: Senna/Docusate Sodium 8.6/50 MG Tablet PO SCH ×2 (08:54→20:56)
[2018-10-07] MEDS: Chlorhexidine 0.12% Oral Kit 15 ML UDC OROPHARYNG SCH ×2 (09:00→20:56)
--- NOTE | 2018-10-07 10:17 | P.PNNS ---
Subjective Interval history: reports continued spasm, says his legs will move on its own, painful. able to wiggle left toes. Physical Exam Vital signs: Vital Signs 10/06/18 12:00 10/06/18 16:00 10/06/18 20:00 Temperature 99.6 F 99.6 F 98.6 F Pulse Rate 78 80 81 Respiratory Rate 18 18 20 Blood Pressure 130/72 112/68 124/71 Pulse Oximetry 96 94 L 96 10/07/18 00:00 10/07/18 04:00 10/07/18 08:00 Temperature 98.0 F 99.0 F 97.9 F Pulse Rate 79 77 79 Respiratory Rate 20 20 18 Blood Pressure 120/79 122/62 137/79 Pulse Oximetry 94 L 94 L 94 L Intake & Output 10/06/18 10/07/18 10/07/18 18:59 06:59 18:59 Intake Total 1050 / 1050 1050 / 1050 50 / 50 Output Total 1820 / 1820 6500 / 6500 Balance -770 / -770 -5450 / -5450 50 / 50 Intake: IV 1050 / 1050 1050 / 1050 50 / 50 NS Inj 1,000 ML @ 100 mls/hr IV 1000 / 1000 1000 / 1000 .CONT .Q10H [facility] Rx#:[id number] Ancef 2 GM Premix Inj 2 gm In 50 / 50 50 / 50 50 / 50 50 ml @ 100 mls/hr IV.SIG Q8H [facility] Rx#:[id number] Output: Urine 6500 / 6500 Urine Amount (Catheter) 1800 / 1800 Indwelling Urethral Catheter 1800 / 1800 Wound Drainage # 1 Posterior DAVY Drain Other: Date of Last Bowel Movement 10/02/18 10/02/18 - Urinary Catheter Management Indwelling Urethral Catheter Cath placed during this visit: yes Reason for continuing: Acute urinary retention Insertion date: 10/02/18 Insertion time: 18:00 Assessment and Plan - Plan 38 M s/p T5-T11 laminectomies for decompression of spinal cord and evacuation of abscess by Dr. Manuel (10/02/18) paraplegia discontinue DAVY drain f/u MRI looks good from 10/03/18 cont PT, OT -- will need Rehab, PT 7 days a week while in hospital Consider d/c huizar and switch to straight cath cont Baclofen 20 tid for LE spasms cont Neurontin 300 tid for neuropathic pain ID following for antibiotic mgt Patient has recently had a right knee replacement 08/30 in [place], [place]. Could this be the source? No history of IVDA.
--- NOTE | 2018-10-07 11:02 | P.PNIM ---
Subjective Interval history: No acute distress from the patient. Ability to move is not significantly improved from previous day. He does have some movement of toes and left ankle. Twitches with full leg movement at the right present painful per patient. Physical Exam Vital signs: Vital Signs 10/06/18 12:00 10/06/18 16:00 10/06/18 20:00 Temperature 99.6 F 99.6 F 98.6 F Pulse Rate 78 80 81 Respiratory Rate 18 18 20 Blood Pressure 130/72 112/68 124/71 Pulse Oximetry 96 94 L 96 10/07/18 00:00 10/07/18 04:00 10/07/18 08:00 Temperature 98.0 F 99.0 F 97.9 F Pulse Rate 79 77 79 Respiratory Rate 20 20 18 Blood Pressure 120/79 122/62 137/79 Pulse Oximetry 94 L 94 L 94 L Intake & Output 10/06/18 10/07/18 10/07/18 18:59 06:59 18:59 Intake Total 1050 / 1050 1050 / 1050 50 / 50 Output Total 1820 / 1820 6500 / 6500 Balance -770 / -770 -5450 / -5450 50 / 50 Intake: IV 1050 / 1050 1050 / 1050 50 / 50 NS Inj 1,000 ML @ 100 mls/hr IV 1000 / 1000 1000 / 1000 .CONT .Q10H [facility] Rx#:[id number] Ancef 2 GM Premix Inj 2 gm In 50 / 50 50 / 50 50 / 50 50 ml @ 100 mls/hr IV.SIG Q8H [facility] Rx#:[id number] Output: Urine 6500 / 6500 Urine Amount (Catheter) 1800 / 1800 Indwelling Urethral Catheter 1800 / 1800 Wound Drainage # 1 Posterior DAVY Drain Other: Date of Last Bowel Movement 10/02/18 10/02/18 Narrative: GENERAL: NAD, A&Ox3 HEAD: Normocephalic. NECK: Supple, trachea midline. No lymphadenopathy. EYES: No scleral icterus. No injection or drainage. CARDIOVASCULAR: Regular rate and rhythm without murmurs, gallops, or rubs. RESPIRATORY: Breath sounds equal bilaterally. No accessory muscle use. GASTROINTESTINAL: Abdomen soft, non-tender, nondistended. MUSCULOSKELETAL: No cyanosis, or edema. Pain with movement of legs. No strength in lower extremities. SKIN: Warm and dry. NEURO: No focal neurological deficits. - Urinary Catheter Management Indwelling Urethral Catheter Cath placed during this visit: yes Reason for continuing: Acute urinary retention Insertion date: 10/02/18 Insertion time: 18:00 Results - Labs CBC & Chem 7: 10/07/18 06:30 10/07/18 06:30 Laboratory Results - last 24 hr 10/06/18 10/06/18 10/07/18 12:33 17:05 00:46 WBC RBC Hgb Hct MCV MCH MCHC RDW Plt Count MPV Neut % (Auto) Lymph % (Auto) [place] % (Auto) Eos % (Auto) Baso % (Auto) Neut # (Auto) Lymph # (Auto) [place] # (Auto) Eos # (Auto) Baso # (Auto) WBC Differential Differential Comment Sodium Potassium Chloride Carbon Dioxide Anion Gap BUN Creatinine Estimated GFR POC Glucose 134 H 160 H 137 H Random Glucose Calcium Total Bilirubin AST ALT Alkaline Phosphatase Total Protein Albumin 10/07/18 10/07/18 10/07/18 06:30 06:30 06:30 WBC 8.1 RBC 3.25 L Hgb 10.0 L Hct 29.4 L MCV 90.5 MCH 30.7 MCHC 33.9 RDW 15.3 Plt Count 229 MPV 9.8 Neut % (Auto) 70.8 H Lymph % (Auto) 18.6 [place] % (Auto) 6.6 Eos % (Auto) 3.4 Baso % (Auto) 0.6 Neut # (Auto) 5.7 Lymph # (Auto) 1.5 [place] # (Auto) 0.5 Eos # (Auto) 0.3 Baso # (Auto) 0.1 WBC Differential . Differential Comment Auto diff final Sodium 142 Potassium 3.6 Chloride 108 H Carbon Dioxide 24.1 Anion Gap 10 BUN 6 L Creatinine 0.54 L Estimated GFR Greater than 89 POC Glucose 136 H Random Glucose 120 H Calcium 8.3 L Total Bilirubin 0.2 AST 87 H ALT 116 H Alkaline Phosphatase 114 Total Protein 7.1 Albumin 2.3 L Microbiology 10/03/18 00:20 Blood - Peripheral Aerobic Blood Culture - Preliminary Staphylococcus aureus 10/03/18 00:20 Blood - Peripheral Anaerobic Blood Culture - Preliminary No growth in 3 days 10/03/18 00:25 Blood - Peripheral Aerobic Blood Culture - Preliminary No growth in 3 days 10/03/18 00:25 Blood - Peripheral Anaerobic Blood Culture - Preliminary No growth in 3 days 10/03/18 19:06 Tissue - Back Gram Stain - Final 10/03/18 19:06 Tissue - Back Wound Culture - Final No growth in 72 hours (aerobically and anaerobically ) Assessment and Plan - Plan 38 year old male admitted with epidural abscess Continue working with physical therapy. Continue pain control. Continue to follow potassium levels and replace as needed. Hypokalemia Replace potassium Monitor potassium levels Epidural abscess Flaccid paraplegia s/p T5-T11 laminectomy s/p T5-T11 laminectomy and abscess evacuation 10/[address] Manuel Continue following neurologic status. DAVY drain in place. Rocephin, vancomycin, Flagyl ID Following follow cultures Seizure disorder Continue Dilantin. Acute respiratory failure Resolved Urinary retention Continue Marie catheter Consider void trial when patient's neurological status improves Diabetes mellitus type 2 Follow blood sugars Insulin sliding scale Diabetic diet DVT prophylaxis SCDs
[2018-10-07] MEDS: Sod Chloride 0.9% Inj 1,000 ML IV.CONT SCH ×2 (13:05→19:47)
[2018-10-08] MEDS: Oral Hygiene Kit OROPHARYNG SCH ×4 (00:41→17:07)
[2018-10-08] MEDS: Morphine Inj 4 MG/ML Vial IV.PUSH PRN ×4 (00:41→12:45)
[2018-10-08] MEDS: Phenytoin Sodium 100 MG Capsule NG/OG SCH ×4 (00:41→22:13)
[2018-10-08] MEDS: Insulin NovoLOG Aspart Correctional Sugar Inj SQ SCH ×3 (00:41→18:14)
[2018-10-08] MEDS: Sod Chloride 0.9% Inj 1,000 ML IV.CONT SCH ×3 (02:18→15:48)
[2018-10-08] MEDS: ceFAZolin 2 GM Premix Inj 2 GM/50 ML PIGGYBACK IV.SIG SCH ×3 (06:24→22:13)
[2018-10-08] MEDS: Famotidine PF Inj 20 MG/2 ML Vial IV.PUSH SCH ×2 (08:23→20:58)
[2018-10-08 08:24] LABS: Baso % (Auto) 0.2 % (0.0-2.0); Eos # (Auto) 0.3 th/mm3 (0.0-0.4); Eos % (Auto) 2.9 % (0.0-4.0); Hematocrit 33.6 % (39.0-51.0); Hemoglobin 10.9 gm/dL (13.0-17.0); Lymph # (Auto) 1.5 th/mm3 (1.0-4.8); Lymph % (Auto) 15.8 % (9.0-44.0); Mean Corpuscular HGB Conc 32.4 % (32.0-36.0); Mean Corpuscular Hemoglobin 29.8 pg (27.0-34.0); Mean Corpuscular Volume 91.9 fL (80.0-100.0); Mean Platelet Volume 8.9 fL (7.0-11.0); Mono # (Auto) 0.6 th/mm3 (0.0-0.9); Mono % (Auto) 6.6 % (0.0-8.0); Neut # (Auto) 6.8 th/mm3 (1.8-7.7); Neut % (Auto) 74.5 % (16.0-70.0); Platelet Count 266 th/mm3 (150-450); Red Blood Count 3.65 mil/mm3 (4.50-5.90); Red Cell Distribution Width 15.5 % (11.6-17.2); White Blood Count 9.2 th/mm3 (4.0-11.0)
[2018-10-08] MEDS: Senna/Docusate Sodium 8.6/50 MG Tablet PO SCH ×2 (08:24→20:58)
[2018-10-08] MEDS: Gabapentin 300 MG Capsule PO SCH ×3 (08:24→17:11)
[2018-10-08] MEDS: Baclofen 10 MG Tablet PO SCH ×3 (08:25→17:11)
[2018-10-08 08:49] LABS: Albumin 2.3 g/dL (3.4-5.0); Anion Gap 10 meq/L (5-15); Aspartate Aminotransferase 52 U/L (15-37); Blood Urea Nitrogen 7 mg/dL (7-18); Calcium 8.5 mg/dL (8.5-10.1); Carbon Dioxide 24.3 meq/L (21.0-32.0); Chloride 106 meq/L (98-107); Glomerular Filtration Rate Greater Than 89 mL/min (>89); Glucose,Random 126 mg/dL (74-106); Potassium 3.2 meq/L (3.5-5.1); Sodium 140 meq/L (136-145)
[2018-10-08 08:50] LABS: Alanine Aminotransferase 111 U/L (12-78)
[2018-10-08 08:52] LABS: Alkaline Phosphatase 123 U/L (45-117); Total Protein 7.5 g/dL (6.4-8.2)
[2018-10-08] MEDS: Chlorhexidine 0.12% Oral Kit 15 ML UDC OROPHARYNG SCH ×2 (08:54→21:01)
--- NOTE | 2018-10-08 14:02 | P.PNIM ---
Subjective Interval history: Low potassium this morning. No new complaints. Working with PT. Physical Exam Vital signs: Vital Signs 10/07/18 15:30 10/07/18 20:00 10/08/18 00:00 Temperature 98.4 F 98.5 F 97.8 F Pulse Rate 73 89 80 Respiratory Rate 18 18 18 Blood Pressure 122/80 121/72 132/74 Pulse Oximetry 96 94 L 96 10/08/18 04:00 10/08/18 06:23 10/08/18 08:00 Temperature 98.4 F 98.8 F Pulse Rate 88 79 Respiratory Rate 18 18 20 Blood Pressure 124/81 120/63 Pulse Oximetry 95 99 10/08/18 09:18 10/08/18 09:46 10/08/18 12:00 Temperature 98.2 F Pulse Rate 85 Respiratory Rate 17 17 18 Blood Pressure 146/65 H Pulse Oximetry 96 10/08/18 12:50 10/08/18 12:55 Temperature Pulse Rate Respiratory Rate 8 L 17 Blood Pressure Pulse Oximetry Intake & Output 10/07/18 10/08/18 10/08/18 18:59 06:59 18:59 Intake Total 3230 / 3230 1620 / 1620 1050 / 1050 Output Total 1800 / 1800 1700 / 1700 1500 / 1500 Balance 1430 / 1430 -80 / -80 -450 / -450 Weight 149.1 kg Intake: IV 2150 / 2150 900 / 900 1050 / 1050 NS Inj 1,000 ML @ 100 mls/hr IV 2000 / 2000 850 / 850 1000 / 1000 .CONT .Q10H [facility] Rx#:[id number] Ancef 2 GM Premix Inj 2 gm In 150 / 150 50 / 50 50 / 50 50 ml @ 100 mls/hr IV.SIG Q8H [facility] Rx#:[id number] Oral 1080 / 1080 720 / 720 Output: Urine 1800 / 1800 1500 / 1500 Urine Amount (Catheter) 1700 / 1700 Indwelling Urethral Catheter 1700 / 1700 Other: Date of Last Bowel Movement 10/02/18 10/02/18 10/02/18 Narrative: GENERAL: NAD, A&Ox3 HEAD: Normocephalic. NECK: Supple, trachea midline. No lymphadenopathy. EYES: No scleral icterus. No injection or drainage. CARDIOVASCULAR: Regular rate and rhythm without murmurs, gallops, or rubs. RESPIRATORY: Breath sounds equal bilaterally. No accessory muscle use. GASTROINTESTINAL: Abdomen soft, non-tender, nondistended. MUSCULOSKELETAL: No cyanosis, or edema. Pain with movement of legs. No strength in lower extremities. SKIN: Warm and dry. NEURO: No focal neurological deficits. - Urinary Catheter Management Indwelling Urethral Catheter Cath placed during this visit: yes Reason for continuing: Acute urinary retention Insertion date: 10/02/18 Insertion time: 18:00 Results - Labs CBC & Chem 7: 10/08/18 07:50 10/08/18 07:50 Laboratory Results - last 24 hr 10/07/18 10/08/18 10/08/18 17:43 00:40 05:18 WBC RBC Hgb Hct MCV MCH MCHC RDW Plt Count MPV Neut % (Auto) Lymph % (Auto) [place] % (Auto) Eos % (Auto) Baso % (Auto) Neut # (Auto) Lymph # (Auto) [place] # (Auto) Eos # (Auto) Baso # (Auto) WBC Differential Differential Comment Sodium Potassium Chloride Carbon Dioxide Anion Gap BUN Creatinine Estimated GFR POC Glucose 104 139 H 158 H Random Glucose Calcium Total Bilirubin AST ALT Alkaline Phosphatase Total Protein Albumin 10/08/18 10/08/18 10/08/18 07:50 07:50 07:59 WBC 9.2 RBC 3.65 L Hgb 10.9 L Hct 33.6 L MCV 91.9 MCH 29.8 MCHC 32.4 RDW 15.5 Plt Count 266 MPV 8.9 Neut % (Auto) 74.5 H Lymph % (Auto) 15.8 [place] % (Auto) 6.6 Eos % (Auto) 2.9 Baso % (Auto) 0.2 Neut # (Auto) 6.8 Lymph # (Auto) 1.5 [place] # (Auto) 0.6 Eos # (Auto) 0.3 Baso # (Auto) 0.0 WBC Differential . Differential Comment Auto diff final Sodium 140 Potassium 3.2 L Chloride 106 Carbon Dioxide 24.3 Anion Gap 10 BUN 7 Creatinine 0.54 L Estimated GFR Greater than 89 POC Glucose 131 H Random Glucose 126 H Calcium 8.5 Total Bilirubin 0.2 AST 52 H ALT 111 H Alkaline Phosphatase 123 H Total Protein 7.5 Albumin 2.3 L Microbiology 10/03/18 00:20 Blood - Peripheral Aerobic Blood Culture - Final Staphylococcus aureus 10/03/18 00:20 Blood - Peripheral Anaerobic Blood Culture - Final No growth in 5 days 10/03/18 00:25 Blood - Peripheral Aerobic Blood Culture - Final No growth in 5 days 10/03/18 00:25 Blood - Peripheral Anaerobic Blood Culture - Final No growth in 5 days Assessment and Plan - Plan 38 year old male admitted with epidural abscess Pain treatments adjusted. Discontinue Blood Glucose bedside checks. Continue working with physical therapy. Continue pain control. Continue to follow potassium levels and replace as needed. Hypokalemia Replace potassium Monitor potassium levels Epidural abscess Flaccid paraplegia s/p T5-T11 laminectomy s/p T5-T11 laminectomy and abscess evacuation 10/[address] Manuel Continue following neurologic status. DAVY drain in place. Rocephin, vancomycin, Flagyl ID Following follow cultures Seizure disorder Continue Dilantin. Acute respiratory failure Resolved Urinary retention Continue Marie catheter Consider void trial when patient's neurological status improves Diabetes mellitus type 2 Follow blood sugars Insulin sliding scale Diabetic diet DVT prophylaxis SCDs
[2018-10-08] MEDS: Morphine Sulfate Inj 2 MG/ML Vial IV.PUSH PRN ×2 (17:11→22:12)
[2018-10-09] MEDS: Oral Hygiene Kit OROPHARYNG SCH ×4 (00:29→16:52)
[2018-10-09] MEDS: Sod Chloride 0.9% Inj 1,000 ML IV.CONT SCH ×3 (00:30→22:18)
[2018-10-09] MEDS: Morphine Sulfate Inj 2 MG/ML Vial IV.PUSH PRN ×6 (01:56→22:19)
[2018-10-09] MEDS: Phenytoin Sodium 100 MG Capsule NG/OG SCH ×3 (06:00→22:18)
[2018-10-09] MEDS: ceFAZolin 2 GM Premix Inj 2 GM/50 ML PIGGYBACK IV.SIG SCH ×3 (06:00→23:09)
[2018-10-09 06:59] LABS: Baso % (Auto) 0.3 % (0.0-2.0); Eos # (Auto) 0.3 th/mm3 (0.0-0.4); Eos % (Auto) 3.3 % (0.0-4.0); Hematocrit 34.2 % (39.0-51.0); Hemoglobin 11.3 gm/dL (13.0-17.0); Lymph # (Auto) 1.6 th/mm3 (1.0-4.8); Lymph % (Auto) 18.1 % (9.0-44.0); Mean Corpuscular HGB Conc 33.1 % (32.0-36.0); Mean Corpuscular Hemoglobin 30.5 pg (27.0-34.0); Mean Corpuscular Volume 92.1 fL (80.0-100.0); Mean Platelet Volume 9.2 fL (7.0-11.0); Mono # (Auto) 0.6 th/mm3 (0.0-0.9); Mono % (Auto) 6.6 % (0.0-8.0); Neut # (Auto) 6.2 th/mm3 (1.8-7.7); Neut % (Auto) 71.7 % (16.0-70.0); Platelet Count 292 th/mm3 (150-450); Red Blood Count 3.71 mil/mm3 (4.50-5.90); Red Cell Distribution Width 15.2 % (11.6-17.2); White Blood Count 8.6 th/mm3 (4.0-11.0)
[2018-10-09 07:12] LABS: Albumin 2.5 g/dL (3.4-5.0); Anion Gap 9 meq/L (5-15); Aspartate Aminotransferase 45 U/L (15-37); Blood Urea Nitrogen 9 mg/dL (7-18); Calcium 8.6 mg/dL (8.5-10.1); Carbon Dioxide 26.4 meq/L (21.0-32.0); Chloride 105 meq/L (98-107); Glomerular Filtration Rate Greater Than 89 mL/min (>89); Glucose,Random 134 mg/dL (74-106); Potassium 3.5 meq/L (3.5-5.1); Sodium 140 meq/L (136-145)
[2018-10-09 07:18] LABS: Alanine Aminotransferase 99 U/L (12-78); Alkaline Phosphatase 131 U/L (45-117); Total Protein 7.7 g/dL (6.4-8.2)
[2018-10-09] MEDS: Famotidine PF Inj 20 MG/2 ML Vial IV.PUSH SCH ×2 (08:16→21:13)
[2018-10-09] MEDS: Senna/Docusate Sodium 8.6/50 MG Tablet PO SCH ×2 (08:17→21:07)
[2018-10-09] MEDS: Baclofen 10 MG Tablet PO SCH ×3 (08:18→16:59)
[2018-10-09] MEDS: Gabapentin 300 MG Capsule PO SCH ×3 (08:18→16:59)
[2018-10-09] MEDS: Chlorhexidine 0.12% Oral Kit 15 ML UDC OROPHARYNG SCH ×2 (09:27→21:07)
--- NOTE | 2018-10-09 16:30 | P.PNIM ---
Subjective Interval history: No acute changes since yesterday. Patient does complain of muscle spasms, he is already on opioids and gabapentin. He refused physical therapy today due to the spasms. No fevers overnight. Physical Exam Vital signs: Vital Signs 10/08/18 17:07 10/08/18 18:50 10/08/18 20:00 Temperature 98.1 F Pulse Rate 84 Respiratory Rate 16 17 18 Blood Pressure 136/70 Pulse Oximetry 95 10/08/18 23:39 10/09/18 00:00 10/09/18 04:00 Temperature 98.9 F 98.6 F Pulse Rate 84 82 Respiratory Rate 18 18 18 Blood Pressure 122/72 135/75 Pulse Oximetry 97 97 10/09/18 08:00 10/09/18 10:06 10/09/18 10:34 Temperature 98.1 F Pulse Rate 80 Respiratory Rate 16 17 17 Blood Pressure 141/67 H Pulse Oximetry 96 10/09/18 12:00 10/09/18 14:36 10/09/18 15:39 Temperature 98.5 F Pulse Rate 80 Respiratory Rate 16 17 17 Blood Pressure 116/57 L Pulse Oximetry 94 L Intake & Output 10/08/18 10/09/18 10/09/18 18:59 06:59 18:59 Intake Total 1100 / 1100 1050 / 1050 1100 / 1100 Output Total 2900 / 2900 2450 / 2450 Balance -1800 / -1800 -1400 / -1400 1100 / 1100 Intake: IV 1100 / 1100 1050 / 1050 1100 / 1100 NS Inj 1,000 ML @ 100 mls/hr IV 1000 / 1000 1000 / 1000 1000 / 1000 .CONT .Q10H [facility] Rx#:[id number] Ancef 2 GM Premix Inj 2 gm In 100 / 100 50 / 50 100 / 100 50 ml @ 100 mls/hr IV.SIG Q8H [facility] Rx#:[id number] Output: Urine 1500 / 1500 2450 / 2450 Urine Amount (Catheter) 1400 / 1400 Indwelling Urethral Catheter 1400 / 1400 Other: Date of Last Bowel Movement 10/02/18 10/02/18 10/02/18 Narrative: GENERAL: NAD, A&Ox3 HEAD: Normocephalic. NECK: Supple, trachea midline. No lymphadenopathy. EYES: No scleral icterus. No injection or drainage. CARDIOVASCULAR: Regular rate and rhythm without murmurs, gallops, or rubs. RESPIRATORY: Breath sounds equal bilaterally. No accessory muscle use. GASTROINTESTINAL: Abdomen soft, non-tender, nondistended. MUSCULOSKELETAL: No cyanosis, or edema. Pain with movement of legs. No strength in lower extremities. SKIN: Warm and dry. NEURO: No focal neurological deficits. - Urinary Catheter Management Indwelling Urethral Catheter Cath placed during this visit: yes Reason for continuing: Acute urinary retention Insertion date: 10/02/18 Insertion time: 18:00 Results - Labs CBC & Chem 7: 10/09/18 06:21 10/09/18 06:21 Laboratory Results - last 24 hr 10/09/18 10/09/18 06:21 06:21 WBC 8.6 RBC 3.71 L Hgb 11.3 L Hct 34.2 L MCV 92.1 MCH 30.5 MCHC 33.1 RDW 15.2 Plt Count 292 MPV 9.2 Neut % (Auto) 71.7 H Lymph % (Auto) 18.1 [place] % (Auto) 6.6 Eos % (Auto) 3.3 Baso % (Auto) 0.3 Neut # (Auto) 6.2 Lymph # (Auto) 1.6 [place] # (Auto) 0.6 Eos # (Auto) 0.3 Baso # (Auto) 0.0 WBC Differential . Differential Comment Auto diff final Sodium 140 Potassium 3.5 Chloride 105 Carbon Dioxide 26.4 Anion Gap 9 BUN 9 Creatinine 0.62 Estimated GFR Greater than 89 Random Glucose 134 H Calcium 8.6 Total Bilirubin 0.1 L AST 45 H ALT 99 H Alkaline Phosphatase 131 H Total Protein 7.7 Albumin 2.5 L Microbiology 10/03/18 00:20 Blood - Peripheral Aerobic Blood Culture - Final Staphylococcus aureus 10/03/18 00:20 Blood - Peripheral Anaerobic Blood Culture - Final No growth in 5 days Assessment and Plan - Plan 38 year old male admitted with epidural abscess Start Flexeril for muscle spasms. Continue gabapentin and narcotics to treat pain. Continue working physical therapy. Monitor potassium level intermittently. Hypokalemia Replace potassium Monitor potassium levels Epidural abscess Flaccid paraplegia s/p T5-T11 laminectomy s/p T5-T11 laminectomy and abscess evacuation 10/[address] Manuel Continue following neurologic status. DAVY drain in place. Rocephin, vancomycin, Flagyl ID Following follow cultures Seizure disorder Continue Dilantin. Acute respiratory failure Resolved Urinary retention Continue Marie catheter Consider void trial when patient's neurological status improves Diabetes mellitus type 2 Follow blood sugars Insulin sliding scale Diabetic diet DVT prophylaxis SCDs
[2018-10-10] MEDS: Oral Hygiene Kit OROPHARYNG SCH ×4 (02:31→20:44)
[2018-10-10] MEDS: Morphine Sulfate Inj 2 MG/ML Vial IV.PUSH PRN ×4 (05:06→20:58)
[2018-10-10] MEDS: ceFAZolin 2 GM Premix Inj 2 GM/50 ML PIGGYBACK IV.SIG SCH ×2 (06:22→14:04)
[2018-10-10] MEDS: Phenytoin Sodium 100 MG Capsule NG/OG SCH ×2 (06:23→14:09)
[2018-10-10] MEDS: Sod Chloride 0.9% Inj 1,000 ML IV.CONT SCH ×2 (09:01→21:05)
[2018-10-10] MEDS: Baclofen 10 MG Tablet PO SCH ×3 (09:02→17:11)
[2018-10-10] MEDS: Gabapentin 300 MG Capsule PO SCH ×2 (09:02→12:37)
[2018-10-10] MEDS: Senna/Docusate Sodium 8.6/50 MG Tablet PO SCH ×2 (09:02→20:53)
[2018-10-10] MEDS: Famotidine PF Inj 20 MG/2 ML Vial IV.PUSH SCH ×2 (09:02→21:11)
--- NOTE | 2018-10-10 12:22 | P.PNNS ---
Subjective Interval history: sitting up in chair, continues c/o severe back pain, reports spasm in legs better Physical Exam Vital signs: Vital Signs 10/09/18 14:36 10/09/18 15:39 10/09/18 16:00 Temperature 98.6 F Pulse Rate 86 Respiratory Rate 17 17 16 Blood Pressure 115/64 Pulse Oximetry 95 10/09/18 18:26 10/09/18 18:55 10/09/18 20:00 Temperature 99.1 F Pulse Rate 91 H Respiratory Rate 19 18 18 Blood Pressure 158/72 H Pulse Oximetry 95 10/10/18 00:00 10/10/18 04:00 10/10/18 08:00 Temperature 98.0 F 97.9 F 98.5 F Pulse Rate 83 78 99 H Respiratory Rate 18 18 22 Blood Pressure 128/67 135/66 139/71 Pulse Oximetry 95 95 93 L Intake & Output 10/09/18 10/10/18 10/10/18 18:59 06:59 18:59 Intake Total 1100 / 1100 1050 / 1050 1050 / 1050 Output Total 1100 / 1100 2049 Balance 0 / 0 -1000 / -1000 1050 / 1050 Weight 148.9 kg Intake: IV 1100 / 1100 1050 / 1050 1050 / 1050 NS Inj 1,000 ML @ 100 mls/hr IV 1000 / 1000 1000 / 1000 1000 / 1000 .CONT .Q10H [facility] Rx#:[id number] Ancef 2 GM Premix Inj 2 gm In 100 / 100 50 / 50 50 / 50 50 ml @ 100 mls/hr IV.SIG Q8H [facility] Rx#:[id number] Output: Urine 1100 / 1100 2049 Other: Date of Last Bowel Movement 10/02/18 Narrative: awake, alert sitting up in chair wound healing well, clean and dry, [place] intact gross 1-2 left toe and ankle movement hypertonicity better in legs - Urinary Catheter Management Indwelling Urethral Catheter Cath placed during this visit: yes Reason for continuing: Acute urinary retention Insertion date: 10/02/18 Insertion time: 18:00 Assessment and Plan - Plan 38 M s/p T5-T11 laminectomies for decompression of spinal cord and evacuation of abscess by Dr. Manuel (10/02/18) paraplegia f/u MRI looks good from 10/03/18 cont PT, OT -- will need Rehab, PT 7 days a week while in hospital Consider d/c huizar and switch to straight cath cont Baclofen 20 tid for LE spasms, pt reports spasms better cont Neurontin 300 tid for neuropathic pain dc more[place] 10/14/18 ID following for antibiotic mgt Patient has recently had a right knee replacement 08/30 in [place], [place]. Could this be the source? No history of IVDA.
[2018-10-10] MEDS: Chlorhexidine 0.12% Oral Kit 15 ML UDC OROPHARYNG SCH ×2 (12:39→20:44)
[2018-10-10] MEDS ORDERED: Polyethylene Glycol 3350 17 GM Packet PO ONE (14:19)
--- NOTE | 2018-10-10 14:28 | P.PNIM ---
Subjective Interval history: Reports still with some back pain and spasms in the lower legs. Not getting too much movement in the lower legs. Physical Exam Vital signs: Last Vital Signs Temp 98.7 F 10/10/18 12:00 Pulse 91 H 10/10/18 12:00 Resp 20 10/10/18 12:00 BP 136/67 10/10/18 12:00 Pulse Ox 94 L 10/10/18 12:00 Intake & Output 10/08/18 10/09/18 10/10/18 10/11/18 06:59 06:59 06:59 06:59 Intake Total 4850 / 4850 2150 / 2150 2150 / 2150 1050 / 1050 Output Total 3500 / 3500 5350 / 5350 3150 / 3150 1600 / 1600 Balance 1350 / 1350 -3200 / -3200 -1000 / -1000 -550 / -550 Weight 149.1 kg 148.9 kg Narrative: GENERAL: This is a well-nourished, well-developed patient, in no apparent distress. CARDIOVASCULAR: Regular rate and rhythm without murmurs, gallops, or rubs. RESPIRATORY: Clear to auscultation. Breath sounds equal bilaterally. No wheezes , rales, or rhonchi. GASTROINTESTINAL: Abdomen soft, non-tender, nondistended. Normal active bowel sounds normoactive bowel sounds MUSCULOSKELETAL: Extremities without clubbing, cyanosis, or edema. NEURO: Alert & Oriented x4 to person, place, time, situation. Minimum movement in the left feet and toes, bilateral lower leg weakness Urinary Catheter Management Indwelling Urethral Catheter: Cath placed during this visit: yes Urethral indwelling: Yes Reason for continuing: Acute urinary retention Insertion date: 10/02/18 Insertion time: 18:00 Results Labs CBC & Chem 7: 10/09/18 06:21 10/09/18 06:21 Labs: Microbiology 10/02/18 19:05 Abscess - Back Fungal Smear - Final No fungal elements seen 10/02/18 19:05 Abscess - Back Fungal Culture - Preliminary No growth in 1 week 10/02/18 19:05 Abscess - Back Acid Fast Bacilli Smear - Final No acid fast bacilli seen 10/02/18 19:05 Abscess - Back Mycobacterial Culture - Preliminary No growth in 1 week 10/02/18 19:05 Abscess - Back Fungal Smear - Final No fungal elements seen 10/02/18 19:05 Abscess - Back Fungal Culture - Preliminary No growth in 1 week 10/02/18 19:05 Abscess - Back Acid Fast Bacilli Smear - Final No acid fast bacilli seen 10/02/18 19:05 Abscess - Back Mycobacterial Culture - Preliminary No growth in 1 week 10/02/18 19:05 Abscess - Back Fungal Smear - Final No fungal elements seen 10/02/18 19:05 Abscess - Back Fungal Culture - Preliminary No growth in 1 week 10/02/18 19:05 Abscess - Back Acid Fast Bacilli Smear - Final No acid fast bacilli seen 10/02/18 19:05 Abscess - Back Mycobacterial Culture - Preliminary No growth in 1 week 10/09/18 20:30 Blood - Peripheral Aerobic Blood Culture - Preliminary No growth in 1 day 10/09/18 20:30 Blood - Peripheral Anaerobic Blood Culture - Preliminary No growth in 1 day 10/09/18 20:45 Blood - Peripheral Aerobic Blood Culture - Preliminary No growth in 1 day 10/09/18 20:45 Blood - Peripheral Anaerobic Blood Culture - Preliminary No growth in 1 day Assessment and Plan Plan 38 year old male admitted with epidural abscess Epidural abscess Flaccid paraplegia s/p T5-T11 laminectomy s/p T5-T11 laminectomy and abscess evacuation 10/[address] Manuel Continue following neurologic status. On Ancef IV ID Following Wound culture showed MSSA Continue physical therapy, wean off IV morphine, increase Neurontin Seizure disorder Continue Dilantin. Acute respiratory failure Resolved Urinary retention Continue Marie catheter Consider void trial when patient's neurological status improves Hypokalemia Replete potassium Diabetes mellitus type 2, controlled, [id number] Follow blood sugars Insulin sliding scale Diabetic diet Constipation Stool softeners, MiraLAX x1 today DVT prophylaxis SCDs Discharge Planning: To CIR when able to wean off IV pain medication Progress Note: Quality VTE Deep Vein Thrombosis/Pulmonary Embolism Present on Admission: Yes
--- NOTE | 2018-10-10 15:43 | P.PNID ---
Subjective Remarks: Mr. Frederick is a 29-year-old male with past medical history significant for right knee TKR on 08/30/2018. He developed T6-T11 epidural abscess with compression of the spinal cord resulted in dense paraplegia. He underwent T5 to T11 laminectomy and epidural abscess evacuation 10/[address] Manuel [facility] neurosurgery. Intraoperative cultures were + For MSSA MSSA in 12/02 blood clx Initially on vanco, Rocephin, flagyl Now in Cefazolin H/o high grade PCN allergy bu tolerates cefazolin ok He denied fever, chills, history of IV drug use. Overnight events reviewed No fever No rash No diarrhea Unable to move his legs except flickering at toes bilaterally. Antibiotics: cefazolin Lines: Lines ok Past Medical History: reviewed Allergies/Adverse Reactions: Allergies ibuprofen Allergy (Verified 10/02/18 10:22) Anaphylaxis Iodine and Iodide Containing Produc Allergy (Verified 10/02/18 10:22) Anaphylaxis ketorolac Allergy (Verified 10/02/18 10:22) Anaphylaxis naproxen Allergy (Verified 10/02/18 10:22) Anaphylaxis Penicillins Allergy (Verified 10/02/18 10:22) Anaphylaxis Sulfa (Sulfonamide Antibiotics) Allergy (Verified 10/02/18 10:22) Anaphylaxis Objective Vital Signs 10/09/18 16:00 10/09/18 18:26 10/09/18 18:55 Temperature 98.6 F Pulse Rate 86 Respiratory Rate 16 19 18 Blood Pressure 115/64 Pulse Oximetry 95 10/09/18 20:00 10/10/18 00:00 10/10/18 04:00 Temperature 99.1 F 98.0 F 97.9 F Pulse Rate 91 H 83 78 Respiratory Rate 18 18 18 Blood Pressure 158/72 H 128/67 135/66 Pulse Oximetry 95 95 95 10/10/18 08:00 10/10/18 12:00 Temperature 98.5 F 98.7 F Pulse Rate 99 H 91 H Respiratory Rate 22 20 Blood Pressure 139/71 136/67 Pulse Oximetry 93 L 94 L Intake & Output 10/09/18 10/10/18 10/10/18 18:59 06:59 18:59 Intake Total 1100 / 1100 1050 / 1050 1050 / 1050 Output Total 1100 / 1100 2050 / 2050 1600 / 1600 Balance 0 / 0 -1000 / -1000 -550 / -550 Weight 148.9 kg Intake: IV 1100 / 1100 1050 / 1050 1050 / 1050 NS Inj 1,000 ML @ 100 mls/hr IV 1000 / 1000 1000 / 1000 1000 / 1000 .CONT .Q10H [facility] Rx#:[id number] Ancef 2 GM Premix Inj 2 gm In 100 / 100 50 / 50 50 / 50 50 ml @ 100 mls/hr IV.SIG Q8H [facility] Rx#:[id number] Output: Urine 1100 / 1100 2050 / 2050 1600 / 1600 Other: Date of Last Bowel Movement 10/02/18 10/02/18 19:05 Abscess - Back Fungal Smear - Final No fungal elements seen 10/02/18 19:05 Abscess - Back Fungal Culture - Preliminary No growth in 1 week 10/02/18 19:05 Abscess - Back Acid Fast Bacilli Smear - Final No acid fast bacilli seen 10/02/18 19:05 Abscess - Back Mycobacterial Culture - Preliminary No growth in 1 week 10/02/18 19:05 Abscess - Back Fungal Smear - Final No fungal elements seen 10/02/18 19:05 Abscess - Back Fungal Culture - Preliminary No growth in 1 week 10/02/18 19:05 Abscess - Back Acid Fast Bacilli Smear - Final No acid fast bacilli seen 10/02/18 19:05 Abscess - Back Mycobacterial Culture - Preliminary No growth in 1 week 10/02/18 19:05 Abscess - Back Fungal Smear - Final No fungal elements seen 10/02/18 19:05 Abscess - Back Fungal Culture - Preliminary No growth in 1 week 10/02/18 19:05 Abscess - Back Acid Fast Bacilli Smear - Final No acid fast bacilli seen 10/02/18 19:05 Abscess - Back Mycobacterial Culture - Preliminary No growth in 1 week 10/09/18 20:30 Blood - Peripheral Aerobic Blood Culture - Preliminary No growth in 1 day 10/09/18 20:30 Blood - Peripheral Anaerobic Blood Culture - Preliminary No growth in 1 day 10/09/18 20:45 Blood - Peripheral Aerobic Blood Culture - Preliminary No growth in 1 day 10/09/18 20:45 Blood - Peripheral Anaerobic Blood Culture - Preliminary No growth in 1 day 10/03/18 00:20 Blood - Peripheral Aerobic Blood Culture - Final Staphylococcus aureus 10/03/18 00:20 Blood - Peripheral Anaerobic Blood Culture - Final No growth in 5 days 10/03/18 00:25 Blood - Peripheral Aerobic Blood Culture - Final No growth in 5 days 10/03/18 00:25 Blood - Peripheral Anaerobic Blood Culture - Final No growth in 5 days Lab - Hematology Results 10/09/18 06:21 WBC 8.6 RBC 3.71 L Hgb 11.3 L Hct 34.2 L MCV 92.1 MCH 30.5 MCHC 33.1 RDW 15.2 Plt Count 292 MPV 9.2 Neut % (Auto) 71.7 H Lymph % (Auto) 18.1 [place] % (Auto) 6.6 Eos % (Auto) 3.3 Baso % (Auto) 0.3 Neut # (Auto) 6.2 Lymph # (Auto) 1.6 [place] # (Auto) 0.6 Eos # (Auto) 0.3 Baso # (Auto) 0.0 WBC Differential . Differential Comment Auto diff final Lab - Chemistry Results 10/09/18 06:21 Sodium 140 Potassium 3.5 Chloride 105 Carbon Dioxide 26.4 Anion Gap 9 BUN 9 Creatinine 0.62 Estimated GFR Greater than 89 Random Glucose 134 H Calcium 8.6 Total Bilirubin 0.1 L AST 45 H ALT 99 H Alkaline Phosphatase 131 H Total Protein 7.7 Albumin 2.5 L Imaging: ITS Impressions Thoracic Spine X-Ray 10/02/18 00:00 CONCLUSION: AP view of the thoracolumbar spine was obtained for level localization. Knee X-Ray 10/03/18 00:00 CONCLUSION: 1. Soft tissue swelling without fracture. 2. Possible small joint effusion Thoracic Spine MRI 10/03/18 07:04 CONCLUSION: 1. Minimal T2 signal within the cord from T9 to T11 likely some edema from reexpansion of the cord. 2. Postsurgical changes with evacuation of the posterior epidural abscess/ hematoma. Lumbar Spine MRI 10/03/18 07:05 CONCLUSION: 1. Right-sided protrusion at L1-2 with minimal extruded component. No canal stenosis. 2. Facet arthropathy lower lumbar spine. Chest X-Ray 10/04/18 06:00 CONCLUSION: Slight interval worsening in aeration Physical Exam: GENERAL: Awake, follows commands. SKIN: Cool and dry, no generalized rash HEAD: Atraumatic. Normocephalic. No temporal or scalp tenderness. EYES: Pupils equal round and reactive. Scleral icterus. No injection or drainage. No petechia ENT: NAD NECK: Trachea midline. Supple, nontender, no meningeal signs. CARDIOVASCULAR: RRR. no murmurs RESPIRATORY: Air entry equal bilaterally. Clear to auscultation bilaterally. GASTROINTESTINAL: Abdomen soft,NT MUSCULOSKELETAL: Extremities without clubbing, cyanosis. Rt Knee TKR site with no e.o infection. BACK: dressing intact over T spine Drain in plaCE with sanguinous drainage. NEUROLOGICAL: moves UE 5/5; speech OK BLE 0/5 Psych cooperative IV line sites ok. Assessment and Plan - Plan Thoracic epidural abscess multi level multi loculated. Recent Right TKR 08/30/2018 Paraplegia with retention of urine Morbid Obesity with BMI: 42.8 kg/m2 Recs: cont Ancef IV Follow cultures at [place] blood and intra op cultures. follow clinical course. sudheer Culp waiting on repeat blood cultures to provide DC recs for [facility]. sudheer pt
[2018-10-10] MEDS: Gabapentin 400 MG Capsule PO SCH (17:11)
[2018-10-11] MEDS: Phenytoin Sodium 100 MG Capsule NG/OG SCH ×4 (01:52→22:48)
[2018-10-11] MEDS: ceFAZolin 2 GM Premix Inj 2 GM/50 ML PIGGYBACK IV.SIG SCH ×4 (01:52→22:55)
[2018-10-11] MEDS: Oral Hygiene Kit OROPHARYNG SCH ×5 (01:53→23:26)
[2018-10-11] MEDS: Morphine Sulfate Inj 2 MG/ML Vial IV.PUSH PRN ×3 (03:42→16:06)
[2018-10-11] MEDS: Sod Chloride 0.9% Inj 1,000 ML IV.CONT SCH ×3 (06:28→18:50)
[2018-10-11] MEDS: Baclofen 10 MG Tablet PO SCH ×3 (09:37→17:05)
[2018-10-11] MEDS: Senna/Docusate Sodium 8.6/50 MG Tablet PO SCH ×2 (09:37→20:53)
[2018-10-11] MEDS: Gabapentin 400 MG Capsule PO SCH ×3 (09:38→17:05)
[2018-10-11] MEDS: Famotidine PF Inj 20 MG/2 ML Vial IV.PUSH SCH ×2 (09:38→20:53)
[2018-10-11] MEDS: Chlorhexidine 0.12% Oral Kit 15 ML UDC OROPHARYNG SCH ×2 (09:38→20:31)
--- NOTE | 2018-10-11 16:31 | P.PNIM ---
Subjective Interval history: Patient reports no abdominal pain but feels full. No bowel movement. Last documented bowel movement September 22 Physical Exam Vital signs: Last Vital Signs Temp 98.4 F 10/11/18 12:00 Pulse 75 10/11/18 12:00 Resp 20 10/11/18 12:00 BP 137/63 10/11/18 12:00 Pulse Ox 98 10/11/18 12:00 Intake & Output 10/09/18 10/10/18 10/11/18 10/12/18 06:59 06:59 06:59 06:59 Intake Total 2150 / 2150 2150 / 2150 3150 / 3150 290 / 290 Output Total 5350 / 5350 3150 / 3150 5525 / 5525 1000 / 1000 Balance -3200 / -3200 -1000 / -1000 -2375 / -2375 -710 / -710 Weight 148.9 kg 147.6 kg Narrative: GENERAL: This is a well-nourished, well-developed patient, in no apparent distress. CARDIOVASCULAR: Regular rate and rhythm without murmurs, gallops, or rubs. RESPIRATORY: Clear to auscultation. Breath sounds equal bilaterally. No wheezes , rales, or rhonchi. GASTROINTESTINAL: Abdomen soft, non-tender, mild distention normal active bowel sounds normoactive bowel sounds MUSCULOSKELETAL: Extremities without clubbing, cyanosis, or edema. NEURO: Alert & Oriented x4 to person, place, time, situation. Minimum movement in the left feet and toes, bilateral lower leg weakness Urinary Catheter Management Indwelling Urethral Catheter: Cath placed during this visit: yes Urethral indwelling: Yes Reason for continuing: Chronic Urinary Retention Insertion date: 10/02/18 Insertion time: 18:00 Results Labs CBC & Chem 7: 10/09/18 06:21 10/09/18 06:21 Labs: Microbiology 10/09/18 20:30 Blood - Peripheral Aerobic Blood Culture - Preliminary No growth in 2 days 10/09/18 20:30 Blood - Peripheral Anaerobic Blood Culture - Preliminary No growth in 2 days 10/09/18 20:45 Blood - Peripheral Aerobic Blood Culture - Preliminary No growth in 2 days 10/09/18 20:45 Blood - Peripheral Anaerobic Blood Culture - Preliminary No growth in 2 days 10/02/18 19:05 Abscess - Back Fungal Smear - Final No fungal elements seen 10/02/18 19:05 Abscess - Back Fungal Culture - Preliminary No growth in 1 week 10/02/18 19:05 Abscess - Back Acid Fast Bacilli Smear - Final No acid fast bacilli seen 10/02/18 19:05 Abscess - Back Mycobacterial Culture - Preliminary No growth in 1 week 10/02/18 19:05 Abscess - Back Fungal Smear - Final No fungal elements seen 10/02/18 19:05 Abscess - Back Fungal Culture - Preliminary No growth in 1 week 10/02/18 19:05 Abscess - Back Acid Fast Bacilli Smear - Final No acid fast bacilli seen 10/02/18 19:05 Abscess - Back Mycobacterial Culture - Preliminary No growth in 1 week 10/02/18 19:05 Abscess - Back Fungal Smear - Final No fungal elements seen 10/02/18 19:05 Abscess - Back Fungal Culture - Preliminary No growth in 1 week 10/02/18 19:05 Abscess - Back Acid Fast Bacilli Smear - Final No acid fast bacilli seen 10/02/18 19:05 Abscess - Back Mycobacterial Culture - Preliminary No growth in 1 week Assessment and Plan Plan 38 year old male admitted with epidural abscess Epidural abscess Flaccid paraplegia s/p T5-T11 laminectomy s/p T5-T11 laminectomy and abscess evacuation 10/[address] Manuel Continue following neurologic status and continue physical therapy. On Ancef IV ID Following Wound culture showed MSSA Continue physical therapy, wean off IV morphine, increase Neurontin Seizure disorder Continue Dilantin. Acute respiratory failure Resolved Urinary retention Continue Marie catheter Consider void trial when patient's neurological status improves Hypokalemia Replete potassium Diabetes mellitus type 2, controlled, [id number] Follow blood sugars Insulin sliding scale Diabetic diet Severe constipation No bowel movement despite bowel regimen and extra dose of MiraLAX. Will give back citrate bottle today and fleets enema. Obtain a GI consultation for possible need for decompression. No active nausea and vomiting at this time. DVT prophylaxis SCDs Discharge Planning: To CIR when able to wean off IV pain medication and when patient has bowel movement Progress Note: Quality VTE Deep Vein Thrombosis/Pulmonary Embolism Present on Admission: Yes
[2018-10-11] MEDS ORDERED: Magnesium Citrate Liq 300 ML Bottle PO ONE (16:35)
[2018-10-11] MEDS ORDERED: Sod Phosphate/Sod Biphosphate (Adult) Enema 133 ML Bottle RECTAL ONE (16:35)
--- NOTE | 2018-10-11 18:55 | P.CONGI ---
History of Present Illness Consult date: 10/11/18 Consult reason: Constipation may need decompression Chief complaint: Epidural Abscess vs hematoma requiring History of Present Illness: This patient is a 38-year-old male patient with a past medical history significant for seizure disorder, diabetes, obesity and total knee replacement. Patient presented to the emergency room at [facility] 10/02 with 5-day history of leg and back pain with urinary retention. Upon consultation patient reports that he developed paraplegia on 10/01/2018. Patient was transferred to [facility] for MRI where he was revealed T6 through T11 epidural abscess with compression of the spinal cord. On 2017 patient underwent T5-T11 laminectomy and epidural abscess evacuation. Patient reports last bowel movement 09/22/2018. Upon consultation, patient states that he has never had an EGD or colonoscopy. He endorses nausea but denies vomiting. Patient reporting epigastric "fullness". States he is unable to feel discomfort in his lower abdomen and is also unable to feel the sensation of passing flatus. Within the last 3 days patient has been given mag citrate x2 doses, MiraLAX, Senokot, lactulose and milk of magnesia. No reported BMs resulting. Of note, patient on baclofen, morphine sulfate IV, and Roxicodone. Review of Systems All other systems reviewed negative except as stated in HPI PMFSH - History History Provided By: Patient - Medical / Surgical Hx Neg / Unobtainable Medical Problems Denied: Unable to Obtain - Medical History Medical History: Medical History (Last Reviewed 10/09/18 @ 08:18 by [employer] [employer]) Diabetes Epilepsy - Surgical History Surgical History: Surgical History (Last Reviewed 10/09/18 @ 08:18 by [employer]) Hx of abdominal surgery Hx of right knee surgery - Tobacco History Second Hand Smoke Exposure: (Unknown) Tobacco Use In Past 30 Days: Yes Smoking Status: Current every day smoker Tobacco Type: Cigarettes - Alcohol History How Often Do You Have a Drink Containing Alcohol: Never - Substance Use History Substance History: No History of Abuse - Travel History Recent Travel in the [place] Within the Last 8 Weeks: No Recent Travel Out of the Country Within the Last 8 Weeks: No - Immunization History Tetanus Immunization: >5 Years Tetanus Immunization Year if Known: 2016 Hx Influenza Vaccine This Season: No Medications and Allergies Active Medications: Active Medications Acetaminophen (Tylenol) 650 mg PO Q6H PRN PRN Reason: PAIN 1-10 AND/OR FEVER >101F Al Hydroxide/Mg Hydroxide (Milk Of Magnesia Liq) 30 ml PO Q12H PRN PRN Reason: Mild Constipation Last Admin: 10/09/18 12:18 Dose: 30 ml Albuterol (Duoneb Neb (Prn)) 1 ampul NEB Q2HR NEB PRN PRN Reason: WHEEZING Baclofen (Lioresal) 20 mg PO TID [facility] Last Admin: 10/11/18 17:05 Dose: 20 mg Bisacodyl (Dulcolax Supp) 10 mg RECTAL DAILY PRN PRN Reason: SEVERE CONSITIPATION Chlorhexidine Gluconate (Peridex 0.12% Oral Kit) 15 ml OROPHARYNG BID@0800, 2000 [facility] Last Admin: 10/11/18 09:38 Dose: Not Given Cyclobenzaprine HCl (Flexeril) 5 mg PO Q8H PRN PRN Reason: Muscle Spasms Last Admin: 10/11/18 01:48 Dose: 5 mg Famotidine (Pepcid Pf Inj) 20 mg IV.PUSH Q12HR [facility] Last Admin: 10/11/18 09:38 Dose: 20 mg Gabapentin (Neurontin) 400 mg PO TID [facility] Last Admin: 10/11/18 17:05 Dose: 400 mg Sodium Chloride (Ns Inj) 1,000 mls @ 100 mls/hr IV.CONT .Q10H [facility] Last Admin: 10/11/18 12:56 Dose: Not Given Cefazolin Sodium/Dextrose (Ancef 2 Gm Premix Inj) 2 gm in 50 mls @ 100 mls/hr IV.SIG Q8H [facility] Last Infusion: 10/11/18 16:00 Dose: Infused Lactulose (Lactulose Liq) 30 ml PO DAILY PRN PRN Reason: SEVERE CONSITIPATION Last Admin: 10/09/18 12:18 Dose: 30 ml Miscellaneous (Pill Splitter) 1 each OTHER UNSCH PRN PRN Reason: SEE LABEL COMMENTS Miscellaneous Medication () 1 each OROPHARYNG 0000,0400,1200,1600 [facility] Last Admin: 10/11/18 16:05 Dose: Not Given Morphine Sulfate (Morphine Inj) 2 mg IV.PUSH Q6H PRN PRN Reason: BREAKTHROUGH PAIN Last Admin: 10/11/18 16:06 Dose: 2 mg Ondansetron HCl (Zofran Inj) 4 mg IV.PUSH Q6H PRN PRN Reason: NAUSEA OR VOMITING Last Admin: 10/11/18 18:42 Dose: 4 mg Oxycodone HCl (Roxicodone) 10 mg PO Q4H PRN PRN Reason: pain 3 to 10 Last Admin: 10/11/18 18:42 Dose: 10 mg Phenytoin Sodium (Dilantin) 300 mg NG/OG Q8H [facility] Last Admin: 10/11/18 15:02 Dose: 300 mg Potassium Chloride (Klor-Con 10) 10 meq PO BID [facility] Stop: 10/12/18 21:00 Last Admin: 10/11/18 09:38 Dose: 10 meq Senna/Docusate Sodium (Jinny-Colace) 1 tab PO BID [facility] Last Admin: 10/11/18 09:37 Dose: 1 tab Sennosides (Senokot) 17.2 mg PO Q12H PRN PRN Reason: Moderate Constipation Last Admin: 10/09/18 12:18 Dose: 17.2 mg Sodium Chloride (Ns Flush) 2 ml IV.FLUSH BID [facility] Last Admin: 10/11/18 09:38 Dose: Not Given Sodium Chloride (Ns Flush) 2 ml IV.FLUSH PRN PRN PRN Reason: FLUSH AFTER USING IV ACCESS Last Admin: 10/09/18 10:09 Dose: 2 ml Allergies Allergy/AdvReac Type Severity Reaction Status Date / Time ibuprofen Allergy Anaphylaxis Verified 10/02/18 10:22 Iodine and Iodide Containing Allergy Anaphylaxis Verified 10/02/18 10:22 Produc ketorolac Allergy Anaphylaxis Verified 10/02/18 10:22 naproxen Allergy Anaphylaxis Verified 10/02/18 10:22 Penicillins Allergy Anaphylaxis Verified 10/02/18 10:22 Sulfa (Sulfonamide Allergy Anaphylaxis Verified 10/02/18 10:22 Antibiotics) Home Medications Medication Instructions Recorded Confirmed Type Dilantin 300 mg PO TID 06/04/18 10/02/18 History Exam Vital signs: Vital Signs 10/10/18 20:00 10/11/18 00:00 10/11/18 04:00 Temperature 98.8 F 98.7 F 98.6 F Pulse Rate 87 81 88 Respiratory Rate 18 18 16 Blood Pressure 129/64 128/64 133/63 Pulse Oximetry 96 93 L 95 10/11/18 08:00 10/11/18 12:00 Temperature 99.0 F 98.4 F Pulse Rate 89 75 Respiratory Rate 20 20 Blood Pressure 134/60 137/63 Pulse Oximetry 95 98 Intake & Output 10/10/18 10/11/18 10/11/18 18:59 06:59 18:59 Intake Total 1100 / 1100 2049 / 2049 340 / 340 Output Total 3200 / 3200 2325 / 2325 1000 / 1000 Balance -2100 / -2100 -275 / -275 -660 / -660 Weight 147.6 kg Intake: IV 1100 / 1100 2049 / 0 100 / 100 NS Inj 1,000 ML @ 100 mls/hr IV 1000 / 1000 2000 / 2000 .CONT .Q10H [facility] Rx#:[id number] Ancef 2 GM Premix Inj 2 gm In 100 / 100 50 / 50 100 / 100 50 ml @ 100 mls/hr IV.SIG Q8H [facility] Rx#:[id number] Oral 240 / 240 Output: Urine 3200 / 3200 2325 / 2325 Urine Amount (Catheter) 1000 / 1000 Indwelling Urethral Catheter 1000 / 1000 Other: Date of Last Bowel Movement 10/02/18 09/22/18 - Constitutional no acute distress, mild distress - Routine HEENT Exam Head: Present: normocephalic - Routine Respiratory Exam Present: CTA bilaterally. Absent: accessory muscle use - Routine Cardiovascular Exam Present: S1, S2 - Routine Abdominal Exam Present: soft, normoactive bowel sounds, distended. Absent: tenderness, guarding, firm - Routine Extremities Exam Present: pulses intact. Absent: edema - Routine Skin Exam Present: dry, warm - Routine Neurological Exam Present: alert, oriented X3 - Routine Psychiatric Exam Present: normal affect, cooperative Results - Labs CBC & Chem 7: 10/09/18 06:21 10/09/18 06:21 Assessment and Plan (1) Constipation Status: Acute Code(s): K59.00 - Constipation, unspecified - Plan This patient is a 38-year-old male patient with a past medical history significant for seizure disorder, diabetes, obesity and total knee replacement. Patient presented to the emergency room at [facility] 10/02 with 5-day history of leg and back pain with urinary retention. Upon consultation patient reports that he developed paraplegia on 10/01/2018. Patient was transferred to [facility] for MRI where he was revealed T6 through T11 epidural abscess with compression of the spinal cord. On 2017 patient underwent T5-T11 laminectomy and epidural abscess evacuation. Patient reports last bowel movement 09/22/2018. Upon consultation, patient states that he has never had an EGD or colonoscopy. He endorses nausea but denies vomiting. Patient reporting epigastric "fullness". States he is unable to feel discomfort in his lower abdomen and is also unable to feel the sensation of passing flatus. Within the last 3 days patient has been given mag citrate x2 doses, MiraLAX, Senokot, lactulose and milk of magnesia. No reported BMs resulting. Of note, patient on baclofen, morphine sulfate IV, and Roxicodone. Constipation Patient endorsing no BM since 09/22/2018 Abdomen slightly distended soft and nontender. Likely due to narcotic administration Nausea without vomiting Plan -Fleets enema tonight x2 -Relistor -Continue bowel regimen -May consider GoLYTELY 2000 mL's x1 -KUB tonight -May require decompression -Supportive care -Further recommendations to follow based on patient status and findings This patient has been seen by myself and Dr. Aggarwal and this note is written on his behalf - Attending Attestation Dr. Aggarwal
[2018-10-11] MEDS ORDERED: Methylnaltrexone Inj 12 MG/0.6 ML Vial SQ ONE (20:00)
--- NOTE | 2018-10-11 20:00 | XR ---
EXAM DATE: 10/11/2018 7:39 PM EST AGE/SEX: 38 years / Male INDICATIONS: Constipation. Last bowel movement 09/23/18. CLINICAL DATA: This is the patient's initial encounter. Patient reports that signs and symptoms have been present for 2 weeks and indicates a pain score of 5/10. MEDICAL/SURGICAL HISTORY: . Diabetes mellitus type II. . Cholecystectomy. Total knee replacem ent, right COMPARISON: synapse default, ABDOMEN UPRIGHT ONLY, 05/14/2016. [facility], CT ABDOMEN & PELVIS W/O CON TRAST, 06/04/2018. [facility], CT ABDOMEN & PELVIS W/O CONTRAST, 11/27/2017. [facility], CT ABDOMEN & PELVIS W/O CONTRAST, 05/30/2017. . FINDINGS: The abdominal bowel gas pattern is normal. No abnormal masses, calcifications, or organomegaly is s een. Hemoclips in the right upper quadrant from prior cholecystectomy. Skin morelia upper midline ab domen. There is also a thin linear metallic density projected to the right of the T11 vertebral body measuring 1.6 cm in length, vertically oriented, which has been present on prior CT scans dating back to May 2017 and located in the left lobe of the liver. There is discontinuity of the cortex of the medial right 12th rib suggesting possible fracture.. CONCLUSION: 1. No dilated loops of small or large bowel. 2. Possible fracture of the posterior right 12th rib. Electronically signed by: Cal Stewart MD 10/11/2018 7:59 PM EST
[2018-10-11] MEDS ORDERED: PEG 3350/E-Lyte Soln 4000 ML Bottle PO SCH (23:00)
[2018-10-12] MEDS: Morphine Sulfate Inj 2 MG/ML Vial IV.PUSH PRN ×4 (00:34→20:25)
[2018-10-12] MEDS: Sod Chloride 0.9% Inj 1,000 ML IV.CONT SCH ×3 (00:36→20:27)
[2018-10-12] MEDS: Oral Hygiene Kit OROPHARYNG SCH ×3 (03:32→17:25)
[2018-10-12] MEDS: Phenytoin Sodium 100 MG Capsule NG/OG SCH ×3 (06:12→23:03)
[2018-10-12] MEDS: ceFAZolin 2 GM Premix Inj 2 GM/50 ML PIGGYBACK IV.SIG SCH ×3 (06:13→23:07)
[2018-10-12] MEDS: Chlorhexidine 0.12% Oral Kit 15 ML UDC OROPHARYNG SCH ×2 (08:43→22:14)
[2018-10-12] MEDS: Senna/Docusate Sodium 8.6/50 MG Tablet PO SCH ×2 (08:45→20:17)
[2018-10-12] MEDS: Baclofen 10 MG Tablet PO SCH ×3 (08:45→17:25)
[2018-10-12] MEDS: Gabapentin 400 MG Capsule PO SCH ×3 (08:46→17:25)
[2018-10-12] MEDS: Famotidine PF Inj 20 MG/2 ML Vial IV.PUSH SCH ×2 (08:49→20:17)
--- NOTE | 2018-10-12 12:55 | P.PNID ---
Subjective Remarks: Mr. Frederick is a 29-year-old male with past medical history significant for right knee TKR on 08/30/2018. He developed T6-T11 epidural abscess with compression of the spinal cord resulted in dense paraplegia. He underwent T5 to T11 laminectomy and epidural abscess evacuation 10/[address] Manuel [facility] neurosurgery. Intraoperative cultures were + For MSSA MSSA in 12/02 blood clx Initially on vanco, Rocephin, flagyl Now in Cefazolin H/o high grade PCN allergy bu tolerates cefazolin ok He denied fever, chills, history of IV drug use. Overnight events reviewed No fever No rash Despite enema only very little BMs in days now. Constipated before arrival to hospital too. s.p Relistor last night. BCX NG so far. Antibiotics: cefazolin Lines: Lines ok Past Medical History: reviewed Allergies/Adverse Reactions: Allergies ibuprofen Allergy (Verified 10/02/18 10:22) Anaphylaxis Iodine and Iodide Containing Produc Allergy (Verified 10/02/18 10:22) Anaphylaxis ketorolac Allergy (Verified 10/02/18 10:22) Anaphylaxis naproxen Allergy (Verified 10/02/18 10:22) Anaphylaxis Penicillins Allergy (Verified 10/02/18 10:22) Anaphylaxis Sulfa (Sulfonamide Antibiotics) Allergy (Verified 10/02/18 10:22) Anaphylaxis Objective Vital Signs 10/11/18 16:00 10/11/18 20:00 10/12/18 00:00 Temperature 99.2 F 98.5 F 97.8 F Pulse Rate 82 98 H 97 H Respiratory Rate 20 20 18 Blood Pressure 149/63 H 119/65 147/83 H Pulse Oximetry 98 94 L 92 L 10/12/18 04:00 10/12/18 07:37 10/12/18 12:00 Temperature 98.4 F 98.5 F 98.5 F Pulse Rate 99 H 87 89 Respiratory Rate 18 20 Blood Pressure 149/78 H 136/77 125/75 Pulse Oximetry 92 L 92 L 94 L Intake & Output 10/11/18 10/12/18 10/12/18 18:59 06:59 18:59 Intake Total 1240 / 1240 1100 / 1100 Output Total 1000 / 1000 850 / 850 1075 / 1075 Balance 240 / 240 250 / 250 -1075 / -1075 Intake: IV 1000 / 1000 1100 / 1100 NS Inj 1,000 ML @ 100 mls/hr IV 900 / 900 1000 / 1000 .CONT .Q10H [facility] Rx#:[id number] Ancef 2 GM Premix Inj 2 gm In 100 / 100 100 / 100 50 ml @ 100 mls/hr IV.SIG Q8H [facility] Rx#:[id number] Oral 240 / 240 Output: Urine 850 / 850 1075 / 1075 Urine Amount (Catheter) 1000 / 1000 Indwelling Urethral Catheter 1000 / 1000 10/09/18 20:30 Blood - Peripheral Aerobic Blood Culture - Preliminary No growth in 3 days 10/09/18 20:30 Blood - Peripheral Anaerobic Blood Culture - Preliminary No growth in 3 days 10/09/18 20:45 Blood - Peripheral Aerobic Blood Culture - Preliminary No growth in 3 days 10/09/18 20:45 Blood - Peripheral Anaerobic Blood Culture - Preliminary No growth in 3 days 10/02/18 19:05 Abscess - Back Fungal Smear - Final No fungal elements seen 10/02/18 19:05 Abscess - Back Fungal Culture - Preliminary No growth in 1 week 10/02/18 19:05 Abscess - Back Acid Fast Bacilli Smear - Final No acid fast bacilli seen 10/02/18 19:05 Abscess - Back Mycobacterial Culture - Preliminary No growth in 1 week 10/02/18 19:05 Abscess - Back Fungal Smear - Final No fungal elements seen 10/02/18 19:05 Abscess - Back Fungal Culture - Preliminary No growth in 1 week 10/02/18 19:05 Abscess - Back Acid Fast Bacilli Smear - Final No acid fast bacilli seen 10/02/18 19:05 Abscess - Back Mycobacterial Culture - Preliminary No growth in 1 week 10/02/18 19:05 Abscess - Back Fungal Smear - Final No fungal elements seen 10/02/18 19:05 Abscess - Back Fungal Culture - Preliminary No growth in 1 week 10/02/18 19:05 Abscess - Back Acid Fast Bacilli Smear - Final No acid fast bacilli seen 10/02/18 19:05 Abscess - Back Mycobacterial Culture - Preliminary No growth in 1 week Imaging: ITS Impressions Thoracic Spine X-Ray 10/02/18 00:00 CONCLUSION: AP view of the thoracolumbar spine was obtained for level localization. Knee X-Ray 10/03/18 00:00 CONCLUSION: 1. Soft tissue swelling without fracture. 2. Possible small joint effusion Thoracic Spine MRI 10/03/18 07:04 CONCLUSION: 1. Minimal T2 signal within the cord from T9 to T11 likely some edema from reexpansion of the cord. 2. Postsurgical changes with evacuation of the posterior epidural abscess/ hematoma. Lumbar Spine MRI 10/03/18 07:05 CONCLUSION: 1. Right-sided protrusion at L1-2 with minimal extruded component. No canal stenosis. 2. Facet arthropathy lower lumbar spine. Chest X-Ray 10/04/18 06:00 CONCLUSION: Slight interval worsening in aeration Abdomen X-Ray 10/11/18 18:41 CONCLUSION: 1. No dilated loops of small or large bowel. 2. Possible fracture of the posterior right 12th rib. Physical Exam: GENERAL: Awake, follows commands. SKIN: Cool and dry, no generalized rash HEAD: Atraumatic. Normocephalic. No temporal or scalp tenderness. EYES: Pupils equal round and reactive. Scleral icterus. No injection or drainage. No petechia ENT: NAD NECK: Trachea midline. Supple, nontender, no meningeal signs. CARDIOVASCULAR: RRR. no murmurs RESPIRATORY: Air entry equal bilaterally. Clear to auscultation bilaterally. GASTROINTESTINAL: Abdomen soft,NT MUSCULOSKELETAL: Extremities without clubbing, cyanosis. Rt Knee TKR site with no e.o infection. BACK: dressing intact over T spine Drain in plaCE with sanguinous drainage. NEUROLOGICAL: moves UE 5/5; speech OK BLE 0/5 Psych cooperative IV line sites ok. Assessment and Plan - Plan Thoracic epidural abscess multi level multi loculated. Recent Right TKR 08/30/2018 Paraplegia with retention of urine Morbid Obesity with BMI: 42.8 kg/m2 Recs: cont Ancef IV Follow cultures at [place] blood and intra op cultures. follow clinical course. sudheer Culp waiting on repeat blood cultures [facility] sudheer pt
--- NOTE | 2018-10-12 14:11 | P.PNGI ---
Subjective Interval history: Resting in the bed awake no bowel movement yet, taken p.o. fluids without any distress Feels pressure in his abdomen but no pain <Luh Brady - Last Filed: 10/12/18 14:05> Physical Exam Vital signs: Vital Signs 10/11/18 16:00 10/11/18 20:00 10/12/18 00:00 Temperature 99.2 F 98.5 F 97.8 F Pulse Rate 82 98 H 97 H Respiratory Rate 20 20 18 Blood Pressure 149/63 H 119/65 147/83 H Pulse Oximetry 98 94 L 92 L 10/12/18 04:00 10/12/18 07:37 10/12/18 12:00 Temperature 98.4 F 98.5 F 98.5 F Pulse Rate 99 H 87 89 Respiratory Rate 18 20 Blood Pressure 149/78 H 136/77 125/75 Pulse Oximetry 92 L 92 L 94 L Intake & Output 10/11/18 10/12/18 10/12/18 18:59 06:59 18:59 Intake Total 1240 / 1240 1100 / 1100 Output Total 1000 / 1000 850 / 850 1075 / 1075 Balance 240 / 240 250 / 250 -1075 / -1075 Intake: IV 1000 / 1000 1100 / 1100 NS Inj 1,000 ML @ 100 mls/hr IV 900 / 900 1000 / 1000 .CONT .Q10H [facility] Rx#:[id number] Ancef 2 GM Premix Inj 2 gm In 100 / 100 100 / 100 50 ml @ 100 mls/hr IV.SIG Q8H [facility] Rx#:[id number] Oral 240 / 240 Output: Urine 850 / 850 1075 / 1075 Urine Amount (Catheter) 1000 / 1000 Indwelling Urethral Catheter 1000 / 1000 - Constitutional moderate distress, morbidly obese, disheveled, cooperative - Routine HEENT Exam ENT: Present: mucous membranes moist - Routine Respiratory Exam Present: decreased breath sounds (In his bases but no obvious wheezing or rhonchi) - Routine Cardiovascular Exam Present: S1, S2 - Routine Abdominal Exam Present: normoactive bowel sounds (Minimal hypoactive bowel sounds), firm - Urinary Catheter Management Indwelling Urethral Catheter Cath placed during this visit: yes Urethral indwelling: Yes Reason for continuing: Acute urinary retention Insertion date: 10/02/18 Insertion time: 18:00 <Luh Brady - Last Filed: 10/12/18 14:05> Vital signs: Vital Signs 10/12/18 00:00 10/12/18 04:00 10/12/18 07:37 Temperature 97.8 F 98.4 F 98.5 F Pulse Rate 97 H 99 H 87 Respiratory Rate 18 18 Blood Pressure 147/83 H 149/78 H 136/77 Pulse Oximetry 92 L 92 L 92 L 10/12/18 12:00 10/12/18 16:00 Temperature 98.5 F 98.5 F Pulse Rate 89 79 Respiratory Rate 20 18 Blood Pressure 125/75 134/74 Pulse Oximetry 94 L 94 L Intake & Output 10/12/18 10/12/18 10/13/18 06:59 18:59 06:59 Intake Total 1100 / 1100 1050 / 1050 Output Total 850 / 850 2175 / 2175 Balance 250 / 250 -1125 / -1125 Intake: IV 1100 / 1100 1050 / 1050 NS Inj 1,000 ML @ 100 mls/hr IV 1000 / 1000 1000 / 1000 .CONT .Q10H [facility] Rx#:[id number] Ancef 2 GM Premix Inj 2 gm In 100 / 100 50 / 50 50 ml @ 100 mls/hr IV.SIG Q8H [facility] Rx#:[id number] Output: Urine 850 / 850 2175 / 2175 - Urinary Catheter Management Indwelling Urethral Catheter Cath placed during this visit: no <Gail Aggarwal - Last Filed: 10/12/18 20:36> Results - Labs CBC & Chem 7: 10/09/18 06:21 10/09/18 06:21 Microbiology 10/09/18 20:30 Blood - Peripheral Aerobic Blood Culture - Preliminary No growth in 3 days 10/09/18 20:30 Blood - Peripheral Anaerobic Blood Culture - Preliminary No growth in 3 days 10/09/18 20:45 Blood - Peripheral Aerobic Blood Culture - Preliminary No growth in 3 days 10/09/18 20:45 Blood - Peripheral Anaerobic Blood Culture - Preliminary No growth in 3 days - Imaging Impressions Abdomen X-Ray 10/11/18 18:41 CONCLUSION: 1. No dilated loops of small or large bowel. 2. Possible fracture of the posterior right 12th rib. <Luh Brady - Last Filed: 10/12/18 14:05> - Labs CBC & Chem 7: 10/09/18 06:21 10/09/18 06:21 Microbiology 10/09/18 20:30 Blood - Peripheral Aerobic Blood Culture - Preliminary No growth in 3 days 10/09/18 20:30 Blood - Peripheral Anaerobic Blood Culture - Preliminary No growth in 3 days 10/09/18 20:45 Blood - Peripheral Aerobic Blood Culture - Preliminary No growth in 3 days 10/09/18 20:45 Blood - Peripheral Anaerobic Blood Culture - Preliminary No growth in 3 days <JasenGail - Last Filed: 10/12/18 20:36> Assessment and Plan (1) Constipation Status: Acute Code(s): K59.00 - Constipation, unspecified - Plan This patient is a 38-year-old male patient with a past medical history significant for seizure disorder, diabetes, obesity and total knee replacement. Patient presented to the emergency room at [facility] 10/02 with 5-day history of leg and back pain with urinary retention. Upon consultation patient reports that he developed paraplegia on 10/01/2018. Patient was transferred to [facility] for MRI where he was revealed T6 through T11 epidural abscess with compression of the spinal cord. On 2017 patient underwent T5-T11 laminectomy and epidural abscess evacuation. Patient reports last bowel movement 09/22/2018. Upon consultation, patient states that he has never had an EGD or colonoscopy. He endorses nausea but denies vomiting. Patient reporting epigastric "fullness". States he is unable to feel discomfort in his lower abdomen and is also unable to feel the sensation of passing flatus. Within the last 3 days patient has been given mag citrate x2 doses, MiraLAX, Senokot, lactulose and milk of magnesia. No reported BMs resulting. Of note, patient on baclofen, morphine sulfate IV, and Roxicodone. 10/12/2018 patient still has had no BM since 09/25/2018 he states. He had been taken Ex-Lax before admission and feels abdominal pressure but no pain secondary to his paraplegia. 55-60% of the GoLYTELY prep is still sitting in the room and patient was encouraged to drink the rest of the GoLYTELY prep within the next hour or 2 for a ineffective colon cleansing. If no response will give subset enemas x2. Patient may need GI procedure to decompress bowel from stool. KUB showed no dilated bowel loops, no ileus last labs reviewed show hemoglobin 11.3 no obvious bleeding mild elevated LFTs which are decreasing and normal bilirubin mild elevated alkaline phosphatase 131 Marie catheter draining orange clear urine Constipation Patient endorsing no BM since 09/22/2018 Abdomen slightly distended soft and nontender. Likely due to narcotic administration Nausea without vomiting Plan Diet clear liquids Complete the rest of GoLYTELY prep in room within an hour or 2 If no results soapsud enema x2 Further recommendations to follow Patient was seen per myself and Dr. Aggarwal, note was written on his behalf <Luh Brady - Last Filed: 10/12/18 14:05> (1) Constipation Status: Acute Code(s): K59.00 - Constipation, unspecified - Plan Agree with above note and plan, we will continue bowel regimen, repeat another dose of Relisto, may need to do colonoscopy with disimpaction if this does not help <Gail Aggarwal - Last Filed: 10/12/18 20:36>
--- NOTE | 2018-10-12 15:27 | P.PNIM ---
Subjective Interval history: Patient still states mild nausea but no active vomiting not eating much because of the constipation. Has not had any bowel movements. No significant abdominal pain but does complain of abdominal swelling Physical Exam Vital signs: Last Vital Signs Temp 98.5 F 10/12/18 12:00 Pulse 89 10/12/18 12:00 Resp 20 10/12/18 12:00 BP 125/75 10/12/18 12:00 Pulse Ox 94 L 10/12/18 12:00 Intake & Output 10/10/18 10/11/18 10/12/18 10/13/18 06:59 06:59 06:59 06:59 Intake Total 2150 / 2150 3150 / 3150 2340 / 2340 Output Total 3150 / 3150 5525 / 5525 1850 / 1850 1075 / 1075 Balance -1000 / -1000 -2375 / -2375 490 / 490 -1075 / -1075 Weight 148.9 kg 147.6 kg Narrative: GENERAL: This is a well-nourished, well-developed patient, in no apparent distress. CARDIOVASCULAR: Regular rate and rhythm without murmurs, gallops, or rubs. RESPIRATORY: Clear to auscultation. Breath sounds equal bilaterally. No wheezes , rales, or rhonchi. GASTROINTESTINAL: Abdomen soft, non-tender, mild distention normal active bowel sounds normoactive bowel sounds MUSCULOSKELETAL: Extremities without clubbing, cyanosis, or edema. NEURO: Alert & Oriented x4 to person, place, time, situation. Minimum movement in the left feet and toes, bilateral lower leg weakness Urinary Catheter Management Indwelling Urethral Catheter: Cath placed during this visit: yes Urethral indwelling: Yes Reason for continuing: Acute urinary retention Insertion date: 10/02/18 Insertion time: 18:00 Results Labs CBC & Chem 7: 10/09/18 06:21 10/09/18 06:21 Labs: Microbiology 10/09/18 20:30 Blood - Peripheral Aerobic Blood Culture - Preliminary No growth in 3 days 10/09/18 20:30 Blood - Peripheral Anaerobic Blood Culture - Preliminary No growth in 3 days 10/09/18 20:45 Blood - Peripheral Aerobic Blood Culture - Preliminary No growth in 3 days 10/09/18 20:45 Blood - Peripheral Anaerobic Blood Culture - Preliminary No growth in 3 days Imaging Imaging: Impressions Abdomen X-Ray 10/11/18 18:41 CONCLUSION: 1. No dilated loops of small or large bowel. 2. Possible fracture of the posterior right 12th rib. Assessment and Plan (1) Constipation: Code(s): K59.00 - Constipation, unspecified Status: Acute Plan 38 year old male admitted with epidural abscess Epidural abscess Flaccid paraplegia s/p T5-T11 laminectomy s/p T5-T11 laminectomy and abscess evacuation 10/[address] Manuel Continue following neurologic status and continue physical therapy. On Ancef IV ID Following and will make final recommendations on duration of antibiotics disposition. Wound culture showed MSSA Continue physical therapy, wean off IV morphine, increase Neurontin Seizure disorder Continue Dilantin. Acute respiratory failure Resolved Urinary retention Continue Marie catheter Consider void trial when patient's neurological status improves Hypokalemia Replete potassium Diabetes mellitus type 2, controlled, [id number] Monitor blood sugar Insulin sliding scale Diabetic diet Severe constipation No bowel movement despite bowel regimen and extra dose of MiraLAX, mag citrate. GI following and possible need for decompression tomorrow if no bowel movement with soap pretty enema x2 today No active nausea and vomiting at this time. KUB showed no dilated loops of bowel DVT prophylaxis SCDs Discharge Planning: To CIR when able to wean off IV pain medication and when patient has bowel movement, will likely need PICC line Progress Note: Quality VTE Deep Vein Thrombosis/Pulmonary Embolism Present on Admission: Yes _ (1) Constipation Qualifiers: Constipation type:
[2018-10-12] MEDS ORDERED: Methylnaltrexone Inj 12 MG/0.6 ML Vial SQ ONE (23:00)
[2018-10-13] MEDS: Oral Hygiene Kit OROPHARYNG SCH ×2 (03:29→05:36)
[2018-10-13] MEDS: Morphine Sulfate Inj 2 MG/ML Vial IV.PUSH PRN ×2 (05:33→16:17)
[2018-10-13] MEDS: Phenytoin Sodium 100 MG Capsule NG/OG SCH (06:04)
[2018-10-13] MEDS: Sod Chloride 0.9% Inj 1,000 ML IV.CONT SCH (06:10)
[2018-10-13] MEDS: ceFAZolin 2 GM Premix Inj 2 GM/50 ML PIGGYBACK IV.SIG SCH ×3 (06:10→23:31)
[2018-10-13] MEDS: Famotidine PF Inj 20 MG/2 ML Vial IV.PUSH SCH (08:36)
[2018-10-13] MEDS: Baclofen 10 MG Tablet PO SCH ×3 (08:37→17:30)
[2018-10-13] MEDS: Senna/Docusate Sodium 8.6/50 MG Tablet PO SCH ×2 (08:39→20:11)
[2018-10-13] MEDS: Chlorhexidine 0.12% Oral Kit 15 ML UDC OROPHARYNG SCH ×2 (08:39→20:09)
[2018-10-13] MEDS: Gabapentin 400 MG Capsule PO SCH ×3 (08:39→17:30)
[2018-10-13] MEDS ORDERED: Chlorhexidine Gluconate 2% 1 Pack (2 Cloths) TOPICAL ONE (12:15)
[2018-10-13] MEDS ORDERED: Metoprolol Tartrate 25 MG Tablet PO ONE (12:15)
[2018-10-13] MEDS ORDERED: Sodium Chlor 0.9% Inj 500 ML IV.CONT ONE (12:15)
--- NOTE | 2018-10-13 13:38 | P.PNIM ---
Subjective Interval history: Nausea no active vomiting. Upper abdominal discomfort. Still feels bloated despite having watery stools. States that he cannot go on drinking GoLYTELY. Physical Exam Vital signs: Last Vital Signs Temp 98.5 F 10/13/18 12:00 Pulse 96 H 10/13/18 12:00 Resp 17 10/13/18 12:00 BP 129/79 10/13/18 12:00 Pulse Ox 95 10/13/18 12:00 Intake & Output 10/11/18 10/12/18 10/13/18 10/14/18 06:59 06:59 06:59 06:59 Intake Total 3150 / 3150 2340 / 2340 2100 / 2100 50 / 50 Output Total 5525 / 5525 1850 / 1850 5375 / 5375 Balance -2375 / -2375 490 / 490 -3275 / -3275 50 / 50 Weight 147.6 kg Narrative: GENERAL: This is a well-nourished, well-developed patient, in no apparent distress. CARDIOVASCULAR: Regular rate and rhythm without murmurs, gallops, or rubs. RESPIRATORY: Clear to auscultation. Breath sounds equal bilaterally. No wheezes , rales, or rhonchi. GASTROINTESTINAL: Abdomen soft, non-tender, mild distention normal active bowel sounds MUSCULOSKELETAL: Extremities without clubbing, cyanosis, or edema. NEURO: Alert & Oriented x4 to person, place, time, situation. Minimum movement in the left feet and toes, bilateral lower leg weakness Urinary Catheter Management Indwelling Urethral Catheter: Cath placed during this visit: yes Urethral indwelling: Yes Reason for continuing: Acute urinary retention Insertion date: 10/02/18 Insertion time: 18:00 Results Labs CBC & Chem 7: 10/09/18 06:21 10/09/18 06:21 Labs: Microbiology 10/09/18 20:30 Blood - Peripheral Aerobic Blood Culture - Preliminary No growth in 4 days 10/09/18 20:30 Blood - Peripheral Anaerobic Blood Culture - Preliminary No growth in 4 days 10/09/18 20:45 Blood - Peripheral Aerobic Blood Culture - Preliminary No growth in 4 days 10/09/18 20:45 Blood - Peripheral Anaerobic Blood Culture - Preliminary No growth in 4 days Assessment and Plan (1) Constipation: Code(s): K59.00 - Constipation, unspecified Status: Acute Plan 38 year old male admitted with epidural abscess Epidural abscess Flaccid paraplegia s/p T5-T11 laminectomy s/p T5-T11 laminectomy and abscess evacuation 10/[address] Manuel Continue following neurologic status and continue physical therapy. On Ancef IV ID Following and will make final recommendations on duration of antibiotics disposition in next 48 hours. Wound culture showed MSSA Continue physical therapy, wean off IV morphine, increase Neurontin Seizure disorder Continue Dilantin. Acute respiratory failure Resolved Urinary retention Continue Marie catheter Consider void trial when patient's neurological status improves Hypokalemia Replete potassium Diabetes mellitus type 2, controlled, [id number] Monitor blood sugar Insulin sliding scale Diabetic diet Severe constipation No bowel movement despite bowel regimen and extra dose of MiraLAX, mag citrate, and GoLYTELY, and soaps enema. GI following and possible need for decompression No active nausea and vomiting at this time. KUB showed no dilated loops of bowel DVT prophylaxis SCDs Discharge Planning: To CIR when able to wean off IV pain medication and when patient has bowel movement, will likely need PICC line Progress Note: Quality VTE Deep Vein Thrombosis/Pulmonary Embolism Present on Admission: Yes _ (1) Constipation Qualifiers: Constipation type:
[2018-10-13] MEDS ORDERED: Phenytoin Sodium 100 MG Capsule PO SCH (14:00)
[2018-10-13] MEDS ORDERED: Lidocaine PF 1% Inj 5 ML Syringe INFILTRATN ONE (14:38)
--- NOTE | 2018-10-13 15:33 | P.PCN ---
Date of procedure: 10/13/18 Procedure: THANK YOU FOR THE REFERRAL Indication; severe constipation, patient on pain medication Procedure Performed; Colonoscopy stool disimpaction After informing the patient about procedure and possible complications consent was signed. history and physical were updated. Patient was taken to the procedure room and placed in position. Time out was completed. Adequate sedation was performed by anesthesia provider. Colonoscopy, rectal exam was performed the scope was placed in the rectum advanced under video guide to the ascending colon, then the scope withdrawal slowly with examination of the mucosa to the rectum and retro-flexion was performed, the scope was withdrawal without any immediate complication Findings; Colon , the colon was fully impacted with stool all the way to the ascending colon where I was not able to pass the scope anymore I flushed the colon with about 2000 cc of water to try to help loosen the stool, I was not able to see any mucosa throughout the exam Rectum full of stool Recommendations; 1- Supportive care 2- ok to transfer to recovery area then discharge per protocol 3- colonoscopy as needed 4-[id number]-[id number] diet 5-Hemoccult on a yearly basis by primary care physician 6-continue bowel regimen and Relistor
--- NOTE | 2018-10-13 15:35 | P.PNGI ---
Subjective Interval history: Patient laying in bed, still no bowel movement, despite all the stool softeners and GoLYTELY that was given to him Physical Exam Vital signs: Vital Signs 10/12/18 16:00 10/12/18 20:00 10/13/18 00:00 Temperature 98.5 F 98.6 F 98.0 F Pulse Rate 79 89 84 Respiratory Rate 18 20 20 Blood Pressure 134/74 135/82 138/79 Pulse Oximetry 94 L 92 L 94 L 10/13/18 04:00 10/13/18 08:00 10/13/18 12:00 Temperature 98.4 F 98.3 F 98.5 F Pulse Rate 94 H 90 96 H Respiratory Rate 20 17 17 Blood Pressure 146/78 H 152/70 H 129/79 Pulse Oximetry 92 L 95 95 Intake & Output 10/12/18 10/13/18 10/13/18 18:59 06:59 18:59 Intake Total 1050 / 1050 1050 / 1050 50 / 50 Output Total 2175 / 2175 3200 / 3200 Balance -1125 / -1125 -2150 / -2150 50 / 50 Intake: IV 1050 / 1050 1050 / 1050 50 / 50 NS Inj 1,000 ML @ 100 mls/hr IV 1000 / 1000 1000 / 1000 .CONT .Q10H [facility]I Rx#:[id number] Ancef 2 GM Premix Inj 2 gm In 50 / 50 50 / 50 50 / 50 50 ml @ 100 mls/hr IV.SIG Q8H [facility] Rx#:[id number] Output: Urine 2175 / 2175 3200 / 3200 Other: # Incontinent Voids 1 Date of Last Bowel Movement 10/13/18 10/13/18 # Incontinent Bowel Movements 3 1 - Constitutional no acute distress - Routine HEENT Exam Head: Present: normocephalic Eye: Present: EOMI, PERRL ENT: Present: mucous membranes moist - Routine Neck Exam Present: supple, full ROM - Routine Respiratory Exam Present: CTA bilaterally - Routine Cardiovascular Exam Present: RRR, S1, S2 - Routine Abdominal Exam Present: soft, distended - Routine Skin Exam Present: intact, warm - Routine Neurological Exam Present: alert, oriented X3 - Routine Psychiatric Exam Present: normal affect - Urinary Catheter Management Indwelling Urethral Catheter Cath placed during this visit: yes Urethral indwelling: Yes Reason for continuing: Acute urinary retention Insertion date: 10/02/18 Insertion time: 18:00 Results - Labs CBC & Chem 7: 10/09/18 06:21 10/09/18 06:21 Laboratory Results - last 24 hr 10/13/18 10/13/18 08:36 12:55 POC Glucose 138 H 136 H Microbiology 10/09/18 20:30 Blood - Peripheral Aerobic Blood Culture - Preliminary No growth in 4 days 10/09/18 20:30 Blood - Peripheral Anaerobic Blood Culture - Preliminary No growth in 4 days 10/09/18 20:45 Blood - Peripheral Aerobic Blood Culture - Preliminary No growth in 4 days 10/09/18 20:45 Blood - Peripheral Anaerobic Blood Culture - Preliminary No growth in 4 days Assessment and Plan (1) Constipation Status: Acute Code(s): K59.00 - Constipation, unspecified - Plan Patient still have constipation no bowel movement despite all the stool softener and laxative that we gave patient, I performed a colonoscopy today Findings; Colon , the colon was fully impacted with stool all the way to the ascending colon where I was not able to pass the scope anymore I flushed the colon with about 2000 cc of water to try to help loosen the stool, I was not able to see any mucosa throughout the exam Rectum full of stool Recommendations; 1- Supportive care 2- ok to transfer to recovery area then discharge per protocol 3- colonoscopy as needed 1-[id number]-[id number] diet 5-Hemoccult on a yearly basis by primary care physician 6-continue bowel regimen and Relistor
[2018-10-13] MEDS ORDERED: PEG 3350/E-Lyte Soln 4000 ML Bottle PO ONE (16:00)
[2018-10-13] MEDS ORDERED: Methylnaltrexone Inj 12 MG/0.6 ML Vial SQ ONE (17:00)
[2018-10-13] MEDS: Phenytoin Sodium 100 MG Capsule PO SCH ×2 (17:29→23:32)
[2018-10-13] MEDS: Famotidine 20 MG Tablet PO SCH (20:11)
[2018-10-14] MEDS: Oral Hygiene Kit OROPHARYNG SCH ×5 (00:23→16:43)
[2018-10-14] MEDS: Morphine Sulfate Inj 2 MG/ML Vial IV.PUSH PRN ×2 (01:41→10:00)
[2018-10-14] MEDS: ceFAZolin 2 GM Premix Inj 2 GM/50 ML PIGGYBACK IV.SIG SCH ×3 (06:08→23:22)
[2018-10-14] MEDS: Phenytoin Sodium 100 MG Capsule PO SCH ×3 (06:08→21:18)
[2018-10-14 07:45] LABS: Anion Gap 12 meq/L (5-15); Blood Urea Nitrogen 8 mg/dL (7-18); Calcium 8.9 mg/dL (8.5-10.1); Chloride 98 meq/L (98-107); Glomerular Filtration Rate Greater Than 89 mL/min (>89); Glucose,Random 112 mg/dL (74-106); Potassium 3.7 meq/L (3.5-5.1); Sodium 137 meq/L (136-145)
[2018-10-14] MEDS: Baclofen 10 MG Tablet PO SCH ×3 (08:31→17:00)
[2018-10-14] MEDS: Senna/Docusate Sodium 8.6/50 MG Tablet PO SCH ×2 (08:31→21:18)
[2018-10-14] MEDS: Gabapentin 400 MG Capsule PO SCH ×3 (08:31→17:00)
[2018-10-14] MEDS: Famotidine 20 MG Tablet PO SCH ×2 (08:31→21:18)
[2018-10-14] MEDS: Chlorhexidine 0.12% Oral Kit 15 ML UDC OROPHARYNG SCH ×2 (08:31→21:20)
--- NOTE | 2018-10-14 11:25 | P.PNIM ---
Subjective Interval history: Does feel better since colonoscopy. Less nauseated. Will try to eat more today. Physical Exam Vital signs: Last Vital Signs Temp 98.1 F 10/14/18 08:00 Pulse 97 H 10/14/18 08:00 Resp 20 10/14/18 08:00 BP 144/78 H 10/14/18 08:00 Pulse Ox 93 L 10/14/18 08:00 Intake & Output 10/12/18 10/13/18 10/14/18 10/15/18 06:59 06:59 06:59 06:59 Intake Total 2340 / 2340 2100 / 2100 6260 / 6260 240 / 240 Output Total 1850 / 1850 5375 / 5375 4630 / 4630 Balance 490 / 490 -3275 / -3275 1630 / 1630 240 / 240 Narrative: GENERAL: This is a well-nourished, well-developed patient, in no apparent distress. CARDIOVASCULAR: Regular rate and rhythm without murmurs, gallops, or rubs. RESPIRATORY: Clear to auscultation. Breath sounds equal bilaterally. No wheezes , rales, or rhonchi. GASTROINTESTINAL: Abdomen soft, non-tender, nondistended normal active bowel sounds MUSCULOSKELETAL: Extremities without clubbing, cyanosis, or edema. NEURO: Alert & Oriented x4 to person, place, time, situation. Minimum movement in the left feet and toes, bilateral lower leg weakness Urinary Catheter Management Indwelling Urethral Catheter: Cath placed during this visit: yes Urethral indwelling: Yes Reason for continuing: Acute urinary retention Insertion date: 10/02/18 Insertion time: 18:00 Results Labs CBC & Chem 7: 10/09/18 06:21 10/14/18 05:49 Labs: Microbiology 10/09/18 20:30 Blood - Peripheral Aerobic Blood Culture - Final No growth in 5 days 10/09/18 20:30 Blood - Peripheral Anaerobic Blood Culture - Final No growth in 5 days 10/09/18 20:45 Blood - Peripheral Aerobic Blood Culture - Final No growth in 5 days 10/09/18 20:45 Blood - Peripheral Anaerobic Blood Culture - Final No growth in 5 days Assessment and Plan (1) Constipation: Code(s): K59.00 - Constipation, unspecified Status: Acute Plan 38 year old male admitted with epidural abscess Epidural abscess Flaccid paraplegia s/p T5-T11 laminectomy s/p T5-T11 laminectomy and abscess evacuation 10/[address] Manuel Continue following neurologic status and continue physical therapy. On Ancef IV ID Following and will make final recommendations on duration of antibiotics disposition in next 24 hours. Wound culture showed MSSA Continue physical therapy, wean off IV morphine, increase Neurontin Seizure disorder Continue Dilantin. Acute respiratory failure Resolved Urinary retention Continue Marie catheter Consider void trial when patient's neurological status improves Hypokalemia Replete potassium Diabetes mellitus type 2, controlled, [id number] Monitor blood sugar Insulin sliding scale Diabetic diet Severe constipation No bowel movement despite bowel regimen and extra dose of MiraLAX, mag citrate, and GoLYTELY, and soaps enema. Now improved with GI completing a colonoscopy disimpaction yesterday. Encourage oral fluid intake and resume oral diet. DVT prophylaxis SCDs Discharge Planning: To CIR when able to wean off IV pain medication and when final IV antibiotics recommendations are given by infectious disease, will likely need PICC line Progress Note: Quality VTE Deep Vein Thrombosis/Pulmonary Embolism Present on Admission: Yes _ (1) Constipation Qualifiers: Constipation type:
[2018-10-14] MEDS ORDERED: Morphine Inj 4 MG/ML Vial IV.PUSH PRN (11:26)
--- NOTE | 2018-10-14 12:43 | P.PNID ---
Subjective Remarks: Mr. Frederick is a 29-year-old male with past medical history significant for right knee TKR on 08/30/2018. He developed T6-T11 epidural abscess with compression of the spinal cord resulted in dense paraplegia. He underwent T5 to T11 laminectomy and epidural abscess evacuation 10/[address] Manuel [facility] neurosurgery. Intraoperative cultures were + For MSSA MSSA in 12/02 blood clx Initially on vanco, Rocephin, flagyl Now in Cefazolin H/o high grade PCN allergy bu tolerates cefazolin ok He denied fever, chills, history of IV drug use. Overnight events reviewed No fever No rash s/p EGD and colonic disimpaction. BCX NG so far. Antibiotics: cefazolin Lines: Lines ok Past Medical History: reviewed Allergies/Adverse Reactions: Allergies ibuprofen Allergy (Verified 10/02/18 10:22) Anaphylaxis Iodine and Iodide Containing Produc Allergy (Verified 10/02/18 10:22) Anaphylaxis ketorolac Allergy (Verified 10/02/18 10:22) Anaphylaxis naproxen Allergy (Verified 10/02/18 10:22) Anaphylaxis Penicillins Allergy (Verified 10/02/18 10:22) Anaphylaxis Sulfa (Sulfonamide Antibiotics) Allergy (Verified 10/02/18 10:22) Anaphylaxis Objective Vital Signs 10/13/18 15:20 10/13/18 16:00 10/13/18 19:56 Temperature 97.3 F L 98.5 F 99.2 F Pulse Rate 96 H 84 95 H Respiratory Rate 18 18 19 Blood Pressure 125/76 135/88 119/76 Pulse Oximetry 97 98 93 L 10/14/18 00:00 10/14/18 04:00 10/14/18 08:00 Temperature 99.0 F 99.0 F 98.1 F Pulse Rate 121 H 105 H 97 H Respiratory Rate 18 18 20 Blood Pressure 125/76 122/74 144/78 H Pulse Oximetry 100 93 L 93 L 10/14/18 11:37 Temperature 98.5 F Pulse Rate 90 Respiratory Rate 18 Blood Pressure 124/68 Pulse Oximetry 93 L Intake & Output 10/13/18 10/14/18 10/14/18 18:59 06:59 18:59 Intake Total 6110 / 6110 150 / 150 240 / 240 Output Total 2830 / 2830 1800 / 1800 900 / 900 Balance 3280 / 3280 -1650 / -1650 -660 / -660 Intake: IV 50 / 50 150 / 150 Ancef 2 GM Premix Inj 2 gm In 50 / 50 150 / 150 50 ml @ 100 mls/hr IV.SIG Q8H ONI Rx#:[id number] Oral 5760 / 5760 240 / 240 Anesthesia Amount 300 / 300 Output: Urine 2830 / 2830 900 / 900 Urine Amount (Catheter) 1800 / 1800 Indwelling Urethral Catheter 1800 / 1800 Other: # Incontinent Voids 1 Date of Last Bowel Movement 10/13/18 10/13/18 10/13/18 # Bowel Movements 1 # Incontinent Bowel Movements 2 10/09/18 20:30 Blood - Peripheral Aerobic Blood Culture - Final No growth in 5 days 10/09/18 20:30 Blood - Peripheral Anaerobic Blood Culture - Final No growth in 5 days 10/09/18 20:45 Blood - Peripheral Aerobic Blood Culture - Final No growth in 5 days 10/09/18 20:45 Blood - Peripheral Anaerobic Blood Culture - Final No growth in 5 days Lab - Chemistry Results 10/13/18 10/13/18 10/13/18 08:36 12:55 16:22 Sodium Potassium Chloride Carbon Dioxide Anion Gap BUN Creatinine Estimated GFR POC Glucose 138 H 136 H 109 Random Glucose Calcium 10/14/18 05:49 Sodium 137 Potassium 3.7 Chloride 98 Carbon Dioxide 27.0 Anion Gap 12 BUN 8 Creatinine 0.61 Estimated GFR Greater than 89 POC Glucose Random Glucose 112 H Calcium 8.9 Imaging: ITS Impressions Thoracic Spine X-Ray 10/02/18 00:00 CONCLUSION: AP view of the thoracolumbar spine was obtained for level localization. Knee X-Ray 10/03/18 00:00 CONCLUSION: 1. Soft tissue swelling without fracture. 2. Possible small joint effusion Thoracic Spine MRI 10/03/18 07:04 CONCLUSION: 1. Minimal T2 signal within the cord from T9 to T11 likely some edema from reexpansion of the cord. 2. Postsurgical changes with evacuation of the posterior epidural abscess/ hematoma. Lumbar Spine MRI 10/03/18 07:05 CONCLUSION: 1. Right-sided protrusion at L1-2 with minimal extruded component. No canal stenosis. 2. Facet arthropathy lower lumbar spine. Chest X-Ray 10/04/18 06:00 CONCLUSION: Slight interval worsening in aeration Abdomen X-Ray 10/11/18 18:41 CONCLUSION: 1. No dilated loops of small or large bowel. 2. Possible fracture of the posterior right 12th rib. Physical Exam: GENERAL: Awake, follows commands. SKIN: Cool and dry, no generalized rash HEAD: Atraumatic. Normocephalic. No temporal or scalp tenderness. EYES: Pupils equal round and reactive. Scleral icterus. No injection or drainage. No petechia ENT: NAD NECK: Trachea midline. Supple, nontender, no meningeal signs. CARDIOVASCULAR: RRR. no murmurs RESPIRATORY: Air entry equal bilaterally. Clear to auscultation bilaterally. GASTROINTESTINAL: Abdomen soft,NT MUSCULOSKELETAL: Extremities without clubbing, cyanosis. Rt Knee TKR site with no e.o infection. BACK: dressing intact over T spine Drain in plaCE with sanguinous drainage. NEUROLOGICAL: moves UE 5/5; speech OK BLE 0/5 Psych cooperative IV line sites ok. Assessment and Plan - Plan Thoracic epidural abscess multi level multi loculated. Recent Right TKR 08/30/2018 Paraplegia with retention of urine Morbid Obesity with BMI: 42.8 kg/m2 Recs: cont Ancef IV Post hospital infusion orders in chart for [facility]. PICC line consult placed. Patient needs follow up imaging and ongoing ID consult visits () please place consult for ID on 10/17/2018 or sooner if change in clinical condition. Weekly CBC with diff, CMP, CRP every week while on IV antibiotics. sudheer Culp waiting on repeat blood cultures to provide DC recs for [facility]. dw pt to cover for me this weekend and available prn
--- NOTE | 2018-10-14 13:09 | P.DCO ---
Post Hospital Infusion Therapy - Infusion Therapy Location of Infusion Therapy: [facility] Appointment Date: 10/14/18 - Patient Information Patient Weight: 147.6 kg - Diagnosis (1) Epidural abscess Code(s): G06.2 - Extradural and subdural abscess, unspecified - Administer Medication Cefazolin Dose: 2 grams IV Directions: q 8 hours Start Treatment: 10/14/18 Stop Treatment: 11/28/18 (Tentative TBD based on repeat imaging.) - Additional Information Venous Access: PICC Line Additional Instructions: [x] Peripheral flush and dressing changes per protocol [x] Implanted port and central furnace reliner: * Implanted port: 10 ml Normal Saline followed by 5 ml Heparin 100 units/ml Heparin flush after each use and monthly to maintain. [] May leave port accessed during therapy. [] May leave peripheral site accessed for duration of therapy. [x] If patient has SOB or respiratory distress, check oxygen saturation. If less than 90% or clinical signs of respiratory distress, administer oxygen at 2 L/min. via nasal cannula and notify physician. [x] Anaphylaxis/Reaction orders: * Stop infusion. * Keep IV line open with saline flush. * Notify physician. * Monitor vital signs every 15 minutes until symptoms resolve. * Check Oxygen saturation; Oxygen at 2 L/min. via nasal cannula if less than 90% or clinical signs of respiratory distress. * Administer diphenhydramine (Benadryl) 25 mg IV STAT, (unless patient has received as pre-med). May repeat once, if necessary. * Solu-Cortef 250 mg IVP over 30-60 seconds, use 100 mg vials for each dissolution. * Epinephrine (1mg/1 ml) 0.3 mg subcutaneously or IVP now with any signs of respiratory distress. * Check with physician for new additional pre-med orders if patient is re- challenged or re-treated. [x] May remove PICC line when treatment complete, after confirming with Physician. [x] If the patient is admitted to the hospital, the ED, or transferred via [facility] , complete transfer form including medication reconciliation order sheet. Weekly Labs: CBC w/diff, CMP, CRP, LFTs (Hepatic Function Test) Additional Information: Please draw weekly labs and fax to following numbers. Please call with abnormal lab values or change in clinical condition to following number. [facility] Call center - Case Management Consult Case Management Consult-IVF: Yes - Patient Information Allergies ibuprofen Allergy (Verified 10/02/18 10:22) Anaphylaxis Iodine and Iodide Containing Produc Allergy (Verified 10/02/18 10:22) Anaphylaxis ketorolac Allergy (Verified 10/02/18 10:22) Anaphylaxis naproxen Allergy (Verified 10/02/18 10:22) Anaphylaxis Penicillins Allergy (Verified 10/02/18 10:22) Anaphylaxis Sulfa (Sulfonamide Antibiotics) Allergy (Verified 10/02/18 10:22) Anaphylaxis
--- NOTE | 2018-10-14 18:43 | P.PNGI ---
Subjective Interval history: Patient awake and alert resting in bed watching television Reports 3 bowel movements yesterday Denies any nausea or vomiting <Ruth Ann Jara - Last Filed: 10/14/18 18:39> Physical Exam Vital signs: Vital Signs 10/13/18 19:56 10/14/18 00:00 10/14/18 04:00 Temperature 99.2 F 99.0 F 99.0 F Pulse Rate 95 H 121 H 105 H Respiratory Rate 19 18 18 Blood Pressure 119/76 125/76 122/74 Pulse Oximetry 93 L 100 93 L 10/14/18 08:00 10/14/18 11:37 10/14/18 16:00 Temperature 98.1 F 98.5 F 99.6 F Pulse Rate 97 H 90 92 H Respiratory Rate 20 18 20 Blood Pressure 144/78 H 124/68 156/93 H Pulse Oximetry 93 L 93 L 94 L Intake & Output 10/13/18 10/14/18 10/14/18 18:59 06:59 18:59 Intake Total 6110 / 6110 150 / 150 1870 / 1870 Output Total 2830 / 2830 1800 / 1800 1400 / 1400 Balance 3280 / 3280 -1650 / -1650 470 / 470 Weight 147.6 kg Intake: IV 50 / 50 150 / 150 50 / 50 Ancef 2 GM Premix Inj 2 gm In 50 / 50 150 / 150 50 / 50 50 ml @ 100 mls/hr IV.SIG Q8H [facility] Rx#:[id number] Oral 5760 / 5760 1820 / 1820 Anesthesia Amount 300 / 300 Output: Urine 2830 / 2830 1400 / 1400 Urine Amount (Catheter) 1800 / 1800 Indwelling Urethral Catheter 1800 / 1800 Other: # Incontinent Voids 1 Date of Last Bowel Movement 10/13/18 10/13/18 10/13/18 # Bowel Movements 1 # Incontinent Bowel Movements 2 - Constitutional no acute distress - Routine HEENT Exam Head: Present: normocephalic - Routine Respiratory Exam Absent: accessory muscle use - Routine Abdominal Exam Present: normoactive bowel sounds. Absent: tenderness - Routine Skin Exam Present: dry, warm - Routine Neurological Exam Present: alert, oriented X3 - Urinary Catheter Management Indwelling Urethral Catheter Cath placed during this visit: yes Urethral indwelling: Yes Reason for continuing: Chronic Urinary Retention Insertion date: 10/02/18 Insertion time: 18:00 <Ruth Ann Jara - Last Filed: 10/14/18 18:39> Vital signs: Vital Signs 10/13/18 19:56 10/14/18 00:00 10/14/18 04:00 Temperature 99.2 F 99.0 F 99.0 F Pulse Rate 95 H 121 H 105 H Respiratory Rate 19 18 18 Blood Pressure 119/76 125/76 122/74 Pulse Oximetry 93 L 100 93 L 10/14/18 08:00 10/14/18 11:37 10/14/18 16:00 Temperature 98.1 F 98.5 F 99.6 F Pulse Rate 97 H 90 92 H Respiratory Rate 20 18 20 Blood Pressure 144/78 H 124/68 156/93 H Pulse Oximetry 93 L 93 L 94 L Intake & Output 10/14/18 10/14/18 10/15/18 06:59 18:59 06:59 Intake Total 150 / 150 1870 / 1870 Output Total 1800 / 1800 1400 / 1400 Balance -1650 / -1650 470 / 470 Weight 147.6 kg Intake: IV 150 / 150 50 / 50 Ancef 2 GM Premix Inj 2 gm In 150 / 150 50 / 50 50 ml @ 100 mls/hr IV.SIG Q8H [facility] Rx#:[id number] Oral 1820 / 1820 Output: Urine 1400 / 1400 Urine Amount (Catheter) 1800 / 1800 Indwelling Urethral Catheter 1800 / 1800 Other: Date of Last Bowel Movement 10/13/18 10/13/18 - Urinary Catheter Management Indwelling Urethral Catheter Cath placed during this visit: no <Gail Aggarwal - Last Filed: 10/14/18 19:20> Results - Labs CBC & Chem 7: 10/09/18 06:21 10/14/18 05:49 Laboratory Results - last 24 hr 10/14/18 05:49 Sodium 137 Potassium 3.7 Chloride 98 Carbon Dioxide 27.0 Anion Gap 12 BUN 8 Creatinine 0.61 Estimated GFR Greater than 89 Random Glucose 112 H Calcium 8.9 Microbiology 10/09/18 20:30 Blood - Peripheral Aerobic Blood Culture - Final No growth in 5 days 10/09/18 20:30 Blood - Peripheral Anaerobic Blood Culture - Final No growth in 5 days 10/09/18 20:45 Blood - Peripheral Aerobic Blood Culture - Final No growth in 5 days 10/09/18 20:45 Blood - Peripheral Anaerobic Blood Culture - Final No growth in 5 days <Ruth Ann Jara - Last Filed: 10/14/18 18:39> - Labs CBC & Chem 7: 10/09/18 06:21 10/14/18 05:49 Laboratory Results - last 24 hr 10/14/18 05:49 Sodium 137 Potassium 3.7 Chloride 98 Carbon Dioxide 27.0 Anion Gap 12 BUN 8 Creatinine 0.61 Estimated GFR Greater than 89 Random Glucose 112 H Calcium 8.9 Microbiology 10/09/18 20:30 Blood - Peripheral Aerobic Blood Culture - Final No growth in 5 days 10/09/18 20:30 Blood - Peripheral Anaerobic Blood Culture - Final No growth in 5 days 10/09/18 20:45 Blood - Peripheral Aerobic Blood Culture - Final No growth in 5 days 10/09/18 20:45 Blood - Peripheral Anaerobic Blood Culture - Final No growth in 5 days <Gail Aggarwal - Last Filed: 10/14/18 19:20> Assessment and Plan (1) Constipation Status: Acute Code(s): K59.00 - Constipation, unspecified - Plan 10/14/2018 Post colonoscopy stool disimpaction 10/13/2018 colonoscopy performed for stool disimpaction Colon was fully impacted with stool up to a sending colon.: Flushed with 2000 mL's of water to loosen stool. Patient denies abdominal pain nausea or vomiting Plan -High-fiber diet -Continue bowel regimen -Colonoscopy as needed -Supportive care -Encourage hydration This patient has been seen by myself and Dr. Aggarwal and this note is written on his behalf - Attending Attestation Dr. Aggarwal <Ruth Ann Jara - Last Filed: 10/14/18 18:39> (1) Constipation Status: Acute Code(s): K59.00 - Constipation, unspecified - Plan Patient is doing better, having bowel movements, continue bowel regimen and make sure that the patient does not get constipated anymore, continue high fluid intake and fiber in the diet, will sign off at this point <Gail Aggarwal - Last Filed: 10/14/18 19:20>
[2018-10-15] MEDS: Oral Hygiene Kit OROPHARYNG SCH ×4 (00:04→17:49)
[2018-10-15] MEDS: ceFAZolin 2 GM Premix Inj 2 GM/50 ML PIGGYBACK IV.SIG SCH ×4 (05:55→23:00)
[2018-10-15] MEDS: Phenytoin Sodium 100 MG Capsule PO SCH ×3 (05:55→21:32)
[2018-10-15 08:31] LABS: Hematocrit 36.7 % (39.0-51.0); Mean Corpuscular HGB Conc 32.8 % (32.0-36.0); Mean Corpuscular Hemoglobin 29.9 pg (27.0-34.0); Mean Corpuscular Volume 91.3 fL (80.0-100.0); Mean Platelet Volume 8.8 fL (7.0-11.0); Platelet Count 363 th/mm3 (150-450); Red Blood Count 4.02 mil/mm3 (4.50-5.90); Red Cell Distribution Width 15.7 % (11.6-17.2); White Blood Count 8.1 th/mm3 (4.0-11.0)
[2018-10-15 08:42] LABS: Anion Gap 10 meq/L (5-15); Blood Urea Nitrogen 9 mg/dL (7-18); Calcium 9.2 mg/dL (8.5-10.1); Carbon Dioxide 27.2 meq/L (21.0-32.0); Chloride 99 meq/L (98-107); Glomerular Filtration Rate Greater Than 89 mL/min (>89); Glucose,Random 163 mg/dL (74-106); Potassium 3.6 meq/L (3.5-5.1); Sodium 136 meq/L (136-145)
[2018-10-15] MEDS: Chlorhexidine 0.12% Oral Kit 15 ML UDC OROPHARYNG SCH ×2 (09:05→23:06)
[2018-10-15] MEDS: Gabapentin 400 MG Capsule PO SCH ×3 (09:06→17:48)
[2018-10-15] MEDS: Senna/Docusate Sodium 8.6/50 MG Tablet PO SCH ×2 (09:06→21:32)
[2018-10-15] MEDS: Baclofen 10 MG Tablet PO SCH ×3 (09:06→17:48)
[2018-10-15] MEDS: Famotidine 20 MG Tablet PO SCH ×2 (09:07→21:32)
--- NOTE | 2018-10-15 11:56 | P.DS ---
DS: Providers Date of admission: 10/02/18 17:02 Primary care physician: UNKNOWN Consults: 10/02/18 14:29 Consult to Neurosurgery Stat Consulting Provider: Cipriano Manuel For STAT consult, spoke directly to:: LUIS ENRIQUE Reason for Consultation: R/O Spoke with:: NO CALL/ ADD TO LIST Date Notified:: 10/02/18 Time Notified:: 15:40 Ordering Provider: RADHA 10/02/18 18:09 Consult to Gis Programmer Stat Consulting Provider: Call Back For STAT consult, spoke directly to:: lee Preferred Steel Layer:: Elliot Gonzalez Reason for Consultation: poss epidural abscess going to or for laminectomy/ decompression Ordering Provider: RADHA 10/02/18 22:44 Consult to Infectious Diseases Routine Consulting Provider: Alda Jaeger Reason for Consultation: epidural abscess Notified:: Service Spoke with:: jennifer Date Notified:: 10/02/18 Time Notified:: 22:50 Ordering Provider: STACY 10/04/18 09:15 Consult to Hospitalist Routine Consulting Provider: Jarek Ramos Reason for Consultation: Assume care in am 10/05/18 Notified:: Service Spoke with:: leonard Date Notified:: 10/04/18 Time Notified:: 09:19 Comments:: waiting electronic assembler back/ra Ordering Provider: SURJIT 10/05/18 15:35 Consult to Rehab Medicine Routine Consulting Provider: Mary Anne Ambrose Reason for Consultation: Epidural Abscess with lower extremity deficits. Status post surgical intervention now. Notified:: Service Spoke with:: Shonna Date Notified:: 10/05/18 Time Notified:: 15:40 Ordering Provider: STEPHANY 10/11/18 16:26 Consult to Gastroenterology Routine Consulting Provider: Gail Aggarwal Reason for Consultation: constipation, may need decompression Notified:: Office Spoke with:: FRANKLYN Date Notified:: 10/11/18 Time Notified:: 16:33 Ordering Provider: PRAMOD DS: Diagnosis Discharge Diagnosis (1) Epidural abscess: Status: Acute (2) Morbid obesity: Status: Chronic (3) Flaccid paralysis: Status: Acute (4) Diabetes mellitus: Status: Chronic (5) Constipation: Status: Acute (6) Urinary retention: Status: Acute DS: Summary 38-year-old white male with a history of knee replacement was admitted with a thoracic epidural abscess with flaccid paraplegia. Dr. Manuel performed a T5- T11 laminectomy with abscess evacuation on October 02 and continued physical therapy and antibiotics with IV Ancef was initiated. Infectious disease, Dr. Jaeger was consulted during the hospitalization and recommendations for IV Ancef was given with wound culture showing MSSA. Pain control was provided along with continue home Dilantin for his seizure disorder. Patient has had continued urinary retention and Marie catheter was inserted until voiding trial can be done when patient's neurological status improves. His blood sugars are relatively controlled with sliding scale insulin and placed on a diabetic diet. He developed severe constipation secondary to being on narcotics and having the flaccid paraplegia status and did not respond to stool softeners regimen and fleets enema. GI service was consulted and disimpaction colonoscopy was performed by Dr. Mario on October 13. PICC line was placed today October 14 prior to transitioning to inpatient rehab. Time Spent with Patient Total time spent providing and/or coordinating discharge services: Less than 30 minutes Quality: VTE Deep Vein Thrombosis/Pulmonary Embolism Present on Admission: Yes Exam Narrative Exam Narrative: GENERAL: This is a well-nourished, well-developed patient, in no apparent distress. CARDIOVASCULAR: Regular rate and rhythm RESPIRATORY: Clear to auscultation. Breath sounds equal bilaterally. No wheezes , rales, or rhonchi. GASTROINTESTINAL: Abdomen soft, non-tender, nondistended. obese Normal active bowel sounds MUSCULOSKELETAL: Extremities without clubbing, cyanosis, trace edema NEURO: Alert & Oriented x4 to person, place, time, situation. Minimum movement over the left foot Results Procedures completed during hospitalization: T5 through T11 laminectomy and abscess evacuation on October [address] Manuel PICC line placement 10/14 Disimpaction colonoscopy 10/[address] Aggarwal Completed studies during hospitalization [Text1]: Pending at discharge 10/02/18 07:28 Surgical [PTH] Routine Labs on day of discharge: Labs from last 24 hours 10/15/18 10/15/18 07:04 07:04 WBC 8.1 RBC 4.02 L Hgb 12.0 L Hct 36.7 L MCV 91.3 MCH 29.9 MCHC 32.8 RDW 15.7 Plt Count 363 MPV 8.8 Sodium 136 Potassium 3.6 Chloride 99 Carbon Dioxide 27.2 Anion Gap 10 BUN 9 Creatinine 0.65 Estimated GFR Greater than 89 Random Glucose 163 H Calcium 9.2 Preliminary micro results at discharge 10/02/18 19:05 Fungal Culture - Preliminary Abscess - Back No growth in 1 week 10/02/18 19:05 Mycobacterial Culture - Preliminary Abscess - Back No growth in 1 week 10/02/18 19:05 Fungal Culture - Preliminary Abscess - Back No growth in 1 week 10/02/18 19:05 Mycobacterial Culture - Preliminary Abscess - Back No growth in 1 week 10/02/18 19:05 Fungal Culture - Preliminary Abscess - Back No growth in 1 week 10/02/18 19:05 Mycobacterial Culture - Preliminary Abscess - Back No growth in 1 week Impressions ITS Impressions Thoracic Spine X-Ray 10/02/18 00:00 CONCLUSION: AP view of the thoracolumbar spine was obtained for level localization. Knee X-Ray 10/03/18 00:00 CONCLUSION: 1. Soft tissue swelling without fracture. 2. Possible small joint effusion Thoracic Spine MRI 10/03/18 07:04 CONCLUSION: 1. Minimal T2 signal within the cord from T9 to T11 likely some edema from reexpansion of the cord. 2. Postsurgical changes with evacuation of the posterior epidural abscess/ hematoma. Lumbar Spine MRI 10/03/18 07:05 CONCLUSION: 1. Right-sided protrusion at L1-2 with minimal extruded component. No canal stenosis. 2. Facet arthropathy lower lumbar spine. Chest X-Ray 10/04/18 06:00 CONCLUSION: Slight interval worsening in aeration Abdomen X-Ray 10/11/18 18:41 CONCLUSION: 1. No dilated loops of small or large bowel. 2. Possible fracture of the posterior right 12th rib. Discharge Plan Discharge Disposition Patient Disposition: 61 Rehab Inpatient Discharge Condition Condition: Fair Discharge Order Discharge Orders: Discharge Order (Routine); Ordered 10/15/18 Ordered By: Karon Man Physicians Team Primary Care Provider: UNKNOWN, Attending Provider: Karon Man Other Providers: Cipriano Manuel ; Alda Jaeger ; Mary Anne Ambrose ; Gail Aggarwal Rxs /Orders / Referrals /Forms Prescriptions: New oxycodone 10 mg Tablet 10 mg PO Q4H PRN (Reason: acute pain) Qty: 18 RF: 0 acetaminophen 325 mg Tablet 650 mg PO Q6H PRN (Reason: Pain 1-10 And/Or Fever >101f) Qty: 30 RF: 0 lactulose 20 gram/30 mL Solution 30 ml PO DAILY PRN (Reason: Severe Consitipation) Qty: 10 RF: 0 magnesium hydroxide [Milk of Magnesia] 400 mg/5 mL Suspension 30 ml PO Q12H PRN (Reason: Mild Constipation) Qty: 10 RF: 0 sennosides-docusate sodium [Senna Plus] 8.6-50 mg Tablet 1 tab PO BID Qty: 30 RF: 0 cefazolin in dextrose (iso-os) 2 gram/50 mL Piggyback 2 gm IV Q8H RF: 0 cyclobenzaprine 10 mg Tablet 5 mg PO Q8H PRN (Reason: Muscle Spasms) Qty: 30 RF: 0 baclofen 10 mg Tablet 20 mg PO TID Qty: 30 RF: 0 gabapentin [Neurontin] 400 mg Capsule 400 mg PO TID Qty: 30 RF: 0 famotidine 20 mg Tablet 20 mg PO BID Qty: 60 RF: 0 Continue Dilantin 300 mg PO TID RF: 0 Referrals: Alda Jaeger MD [Physician] - See Instructions ( Please call the physician' s for consult on duration of Ancef needed while an inpatient rehab.) UNKNOWN, [Primary Care Provider] - See Instructions Discharge Instructions Patient Printed Instructions: Laminectomy (DC) Post Discharge Care Plan Care Plan Goals: Your Health Problems: Thoracic epidural abscess, paraplegia Goals to Promote Your Health: * To prevent worsening of your condition * To maintain your health at the optimal level Directions to Meet Your Goals: * Take your medications as prescribed * Follow your dietary instruction * Follow activity as directed * Keep your appointments as scheduled * Take your immunizations and boosters as scheduled * If your symptoms worsen call your PCP * If no PCP go to Urgent Care or Emergency Room Smoking is dangerous to your health. Avoid second hand smoke. You may reach the 24-hour crisis hotline for domestic abuse at . Status ED Status: Left Department
[2018-10-15] MEDS ORDERED: Heparin Central Flush 100 UNIT/ML 5 ML Vial IV.FLUSH PRN (13:03)
[2018-10-16] MEDS: Oral Hygiene Kit OROPHARYNG SCH ×2 (06:06→12:02)
[2018-10-16] MEDS: ceFAZolin 2 GM Premix Inj 2 GM/50 ML PIGGYBACK IV.SIG SCH (06:07)
[2018-10-16] MEDS: Phenytoin Sodium 100 MG Capsule PO SCH (06:07)
[2018-10-16] MEDS ORDERED: Heparin Central Flush 100 UNIT/ML 5 ML Vial IV.FLUSH SCH (09:00)
[2018-10-16 09:02] VITALS: BP 157/72; PULSE 82; RESP 18; TEMP 98.6; O2SAT 94
[2018-10-16] MEDS: Chlorhexidine 0.12% Oral Kit 15 ML UDC OROPHARYNG SCH (10:40)
[2018-10-16] MEDS: Famotidine 20 MG Tablet PO SCH (10:40)
[2018-10-16] MEDS: Senna/Docusate Sodium 8.6/50 MG Tablet PO SCH (10:40)
[2018-10-16] MEDS: Gabapentin 400 MG Capsule PO SCH ×2 (10:40→12:22)
[2018-10-16] MEDS: Baclofen 10 MG Tablet PO SCH ×2 (10:40→12:22)
--- NOTE | 2018-10-16 10:44 | P.PNIM ---
Subjective Interval history: Patient reports tolerating diet. Pain controlled. No fevers or chills. Looking forward to going to rehab. Had a PICC line placed yesterday. Physical Exam Vital signs: Last Vital Signs Temp 98.6 F 10/16/18 08:00 Pulse 82 10/16/18 08:00 Resp 18 10/16/18 08:00 BP 157/72 H 10/16/18 08:00 Pulse Ox 94 L 10/16/18 08:00 Intake & Output 10/14/18 10/15/18 10/16/18 10/17/18 06:59 06:59 06:59 06:59 Intake Total 6260 / 6260 2640 / 2640 1545 / 1545 Output Total 4630 / 4630 2150 / 2150 1200 / 1200 Balance 1630 / 1630 490 / 490 345 / 345 Weight 147.6 kg Narrative: GENERAL: This is a well-nourished, well-developed patient, in no apparent distress. CARDIOVASCULAR: Regular rate and rhythm without murmurs, gallops, or rubs. RESPIRATORY: Clear to auscultation. Breath sounds equal bilaterally. No wheezes , rales, or rhonchi. GASTROINTESTINAL: Abdomen soft, non-tender, nondistended normal active bowel sounds MUSCULOSKELETAL: Extremities without clubbing, cyanosis, or edema. NEURO: Alert & Oriented x4 to person, place, time, situation. Minimum movement in the left feet and toes, bilateral lower leg weakness Urinary Catheter Management Indwelling Urethral Catheter: Cath placed during this visit: yes Urethral indwelling: Yes Reason for continuing: Acute urinary retention Insertion date: 10/02/18 Insertion time: 18:00 Results Labs CBC & Chem 7: 10/15/18 07:04 10/15/18 07:04 Procedures Procedures: T5 through T11 laminectomy and abscess evacuation on October [address] Manuel PICC line placement 10/15 Disimpaction colonoscopy 10/[address] Aggarwal Assessment and Plan (1) Epidural abscess: Code(s): G06.2 - Extradural and subdural abscess, unspecified Status: Acute (2) Morbid obesity: Code(s): E66.01 - Morbid (severe) obesity due to excess calories Status: Chronic (3) Flaccid paralysis: Code(s): G83.89 - Other specified paralytic syndromes Status: Acute (4) Diabetes mellitus: Code(s): E11.9 - Type 2 diabetes mellitus without complications Status: Chronic (5) Constipation: Code(s): K59.00 - Constipation, unspecified Status: Acute (6) Urinary retention: Code(s): R33.9 - Retention of urine, unspecified Status: Acute Plan 38 year old male admitted with epidural abscess Epidural abscess Flaccid paraplegia s/p T5-T11 laminectomy s/p T5-T11 laminectomy and abscess evacuation 10/[address] Manuel Continue following neurologic status and continue physical therapy. On Ancef IV ID Following and will make final recommendations on duration of antibiotics pending future repeat imaging, tentative date is November 28, 2018 Wound culture showed MSSA Continue physical therapy, wean off IV morphine, increase Neurontin Seizure disorder Continue Dilantin. Acute respiratory failure Resolved Urinary retention Continue Marie catheter Consider void trial when patient's neurological status improves Hypokalemia Replete potassium Diabetes mellitus type 2, controlled, [id number] Monitor blood sugar Insulin sliding scale Diabetic diet Severe constipation No bowel movement previously with despite bowel regimen and extra dose of MiraLAX, mag citrate, and GoLYTELY, and soaps enema. Now improved with GI completing a colonoscopy disimpaction on 10/13 encourage oral fluid intake and resume oral diet and continue bowel regimen. DVT prophylaxis SCDs Discharge Planning: To CIR today Progress Note: Quality VTE Deep Vein Thrombosis/Pulmonary Embolism Present on Admission: Yes _ (1) Diabetes mellitus Qualifiers: Diabetes mellitus type: Diabetes mellitus oysterman insulin use: Diabetes mellitus complication status: Diabetes mellitus complication detail: Diabetic retinopathy severity: Proliferative retinopathy type: Diabetes mellitus macular edema: Laterality: Chronic kidney disease stage: (2) Constipation Qualifiers: Constipation type:
== END 2018-10-16 13:18 | DRG 28 ==
LOC: NEPC 09:57 → NEDA 17:02 → N03 21:07 → N05 10-04 19:49
PROVIDERS: ADMIT Family Medicine; ATTEND Family Medicine
PROC: COLONOS (2018-10-13 14:37)
DX: G40.909 Epilepsy, unspecified, not intractable, without status epilepticus; A49.01 Methicillin susceptible Staphylococcus aureus infection, unspecified site; Z88.0 Allergy status to penicillin; Z87.892 Personal history of anaphylaxis; T40.605A Adverse effect of unspecified narcotics, initial encounter; Z88.2 Allergy status to sulfonamides; E66.01 Morbid (severe) obesity due to excess calories; G82.20 Paraplegia, unspecified; G06.1 Intraspinal abscess and granuloma; Z96.651 Presence of right artificial knee joint; R33.9 Retention of urine, unspecified; K59.03 Drug induced constipation; M79.606 Pain in leg, unspecified; Z68.41 Body mass index [BMI] 40.0-44.9, adult; Y92.239 Unspecified place in hospital as the place of occurrence of the external cause; J96.00 Acute respiratory failure, unspecified whether with hypoxia or hypercapnia; E11.40 Type 2 diabetes mellitus with diabetic neuropathy, unspecified; E87.6 Hypokalemia; Z88.6 Allergy status to analgesic agent
CPT/HCPCS: 31500; 36569; 71010; 71045; 72020; 72157; 72158; 73560; 74000; 74018; 76000; 76937; 80048; 80053; 80185; 80202; 80307; 82948; 82962; 83735; 84100; 85025; 85027; 85610; 85730; 86403; 87015; 87040; 87070; 87102; 87116; 87147; 87149; 87176; 87186; 87205; 87206; 87641; 88304; 88307; 90765; 90766; 90775; 93306; 94002; 94003; 94656; 94657; 96365; 96366; 96375; 97110; 97163; 97167; 97530; 97535; 99285; A9585; J0330; J0690; J0696; J1170; J1642; J1815; J2212; J2250; J2270; J2405; J2704; J3010; J3370; J7030; J7040